=== PATIENT | female | born 1965 | race Caucasian/White ===

== ENCOUNTER 2023-12-31 10:25 | Outpatient (OUT) | payer OTHER, SELFPAY ==
--- NOTE | 2023-12-31 10:29 | VEIN_ITS ---
Patient Name: KATYA CORONEL MR#: [id number] : 1965 Exam Date: 12/31/2023 Ordering Doctor: DR SAHIL GARCIA M.D. RADIOLOGY REPORT PROCEDURE: VC EXT VENOUS REFLUX KIAH LMTD COMPARISON: None. INDICATIONS: I83.813 Bilateral painful varicose veins TECHNIQUE: Duplex imaging of the lower extremity to assess the deep and superficial venous system for the presence of deep or superficial venous incompetence and to document the location and severity of disease. The study includes evaluation of the great saphenous vein (GSV), anterior accessory saphenous vein (AASV) and small saphenous vein (SSV). Patient scanned in reverse Trendelenburg and standing. FINDINGS: RIGHT LOWER EXTREMITY: Saphenofemoral Junction Reflux: No 9.1mm sec GSV: Diam (mm) Reflux/ Time (sec) Proximal Thigh N/A Mid Thigh N/A Distal Thigh N/A Prox Calf 2.8 No Mid Calf N/A Saphenopopliteal Junction Reflux: 6.0mm Yes 1.3 SSV: Proximal Calf 5.8 Yes 1.8 Mid Calf 5.5 Yes 0.8 AASV: Proximal Thigh 4.4 No Mid Thigh Distal Thigh Thrombi: No acute or chronic thrombus visualized Compressibility: Normal Flow: Normal Preforator: Dist/med calf 4.3mm with 1.2s reflux. Tech Note: GSV was previously stripped 20 years ago. Incompetent SSV. Patent varicose vein prox/med calf 4.5mm with 1.5s reflux. Patent varicose vein dist/med thigh 4.8mm with 0.9s reflux. Patent varicose vein dist/ant thigh 3.8mm with 0.7s reflux. Patent varicose vein mid/post calf 4.1mm with 2.8s reflux. LEFT LOWER EXTREMITY: Saphenofemoral Junction Reflux: mm sec GSV: Diam (mm) Reflux/Time (sec) Proximal Thigh No Mid Thigh N/A Distal Thigh 4.0 No Prox Calf 5.3 Yes 2.1 Mid Calf N/A Saphenopopliteal Junction Relux: 4.2 mm No SSV: Proximal Calf 4.0 No Mid Calf 3.5 No AASV: Proximal Thigh 6.2 No Mid Thigh Distal Thigh Thrombi: No acute or chronic thrombus visualized Compressibility: Normal Flow: Normal Analytics Specialist: Dist/med calf 4.1mm with 0s reflux. Tech Note: GSV was previously stripped 20 years ago. Patent varicose vein prox/med calf 4.5mm with 3.1s reflux. Patent varicose vein medial 4.2mmm with 2.6s reflux. Patent varicose vein mid/med calf 6.5mm with 3.9s reflux. Patent varicose vein dist/med calf 4.6mm with 1.8s reflux. Patent varicose vein dist/med thigh 4.1mm with 1.0s reflux. CONCLUSION: 1. Moderate venous insufficiency of the right small saphenous vein with saphenous popliteal junction reflux and dilatation 2. Left leg incompetent perforating vein 3. Bilateral incompetent varicose veins measuring up to 6.5 mm, left greater than right Dictated by: Sahil Garcia MD on 12/31/2023 at 11:31 Approved by: Sahil Garcia MD on 12/31/2023 at 11:35
--- NOTE | 2023-12-31 10:29 | VEIN_ITS ---
Patient Name: KATYA CORONEL MR#: [id number] : 1965 Exam Date: 12/31/2023 Ordering Doctor: DR SAHIL GARCIA M.D. RADIOLOGY REPORT PROCEDURE: [facility] - OFFICE VISIT INITIAL COMPARISON: None. PROGRESS NOTES: 58-year-old female presents with a 20 year history of lower extremity pain swelling and varicose veins. The patient's symptoms are symmetric in both legs. The patient describes the pain as aching and heaviness and rates the pain as a 4 on a scale of 1-10. The patient's symptoms are exacerbated by prolonged sitting and standing and are partially relieved by leave by rest, leg elevation, over the counter ibuprofen and compression stockings which she has worn for several decades. The patient was previously seen by vascular surgery and underwent bilateral outpatient procedure presumably either radiofrequency or laser ablation of the great saphenous veins. The patient denies any signs and symptoms to suggest arterial ischemia. The patient describes a family history significant for varicose veins in her mother and sister. Hypertension diabetes and heart problems in her father. . Occasional alcohol use. No drug use. The patient has never smoked. Current medical conditions are significant for high blood pressure, controlled on Coreg. Multiple right foot problems with surgery in the past. Right hip arthroplasty. No history of deep venous thrombus or pulmonary embolus. See separate history and physical for medication list. Nursing notes were reviewed. After history and physical exam I discussed at length the pathophysiology of venous hypertension and possible treatments, therapies and strategies available. We discussed at length the importance of elevating the lower extremities above the level of the heart, increased physical activity and compression stocking use. We discussed conservative treatment with bilateral thigh-high compression stockings. We also discussed surgical interventions including ligation and stripping and phlebectomy. We discussed intravenous laser ablation, micro foam chemical ablation and injection sclerotherapy at length. Ultrasound venous reflux study performed the same day was discussed at length with the patient. The report demonstrates mild to moderate right small saphenous vein venous insufficiency with saphenopopliteal junction reflux and dilatation period bilateral incompetent branch saphenous varicose veins PHYSICAL EXAM: The right leg demonstrates scattered varicose reticular and spider veins. Significant subcutaneous fat out of proportion to the rest of the patient's body habitus suggesting lipedema. No subcutaneous edema The left leg demonstrates scattered varicose reticular and spider veins. Significant subcutaneous fat out of proportion to the rest of the patient's body habitus suggesting lipedema. Mild subcutaneous edema Both thighs, legs and feet were symmetrically warm to the touch. Good posterior tibial and dorsalis pedis pulses were present bilaterally. VEIN/VC Facility EST Comprehensive IMPRESSION: 1. Right small saphenous vein venous insufficiency with dilatation 2. Bilateral lower extremity branch saphenous varicose veins, left greater than right 3. Mild left lower extremity subcutaneous edema, bilateral lipedema 4. No definite flow significant arterial disease 5. CEAP: C3, Ep, As, Pr PLAN: 1. Endovenous laser ablation right small saphenous vein 2. Micro foam chemical ablation bilateral incompetent varicose veins 3. Injection sclerotherapy of reticular and spider veins 4. Long-term use of bilateral knee high or thigh-high compression stockings 5. Surgical consultation for lipedema if desired Nurse notes, history and physical were reviewed and confirmed, see attached forms. The nurse was present throughout the physical exam and consultation Dictated by: Sahil Garcia MD on 12/31/2023 at 12:22 Approved by: Sahil Garcia MD on 12/31/2023 at 12:54
== END 2023-12-31 10:26 | disposition home or self-care (01) ==
LOC: VC 10:26
PROVIDERS: PCP Radiology Diagnostic Radiology; Visit Provider Radiology Diagnostic Radiology
DX: I83.813 Varicose veins of bilateral lower extremities with pain (principal)
CPT/HCPCS: 93970; G0463

== ENCOUNTER 2024-02-04 07:53 | Outpatient (OUT) | payer OTHER, SELFPAY ==
--- OUTSIDE RECORDS SUMMARY | 2024-02-04 07:56 | XMS_ITS | CCD ---
Author Name Unknown Address [address] [facility] [address] [place] [id number] Organization [facility] Care Team Providers Care Cpo Name Role Phone Piero HENDRICKSON Primary Care Physician [phone] SHARON, DR JENKINS Attending Unavailable SHARON, DR JENKINS Consulting Unavailable DR ALICE HERRERA Admitting Unavailable Piero HENDRICKSON Attending Unavailable Piero HENDRICKSON Admitting Unavailable Piero HENDRICKSON Referring Unavailable Jonh Ann Referring Unavailable Jonh Ann Attending Unavailable Jonh Ann Admitting Unavailable Piero HENDRICKSON Admitting Unavailable Piero HENDRICKSON Attending Unavailable Piero HENDRICKSON Attending Unavailable Allergies Allergy Classification Reported Allergen(s) Allergy Type Date of Onset Reaction(s) Facility (7 sources) Erythromycin; Translations: [erythromycin] Drug Allergy unknown [facility] (7 sources) Ramipril; Translations: [ramipril] Drug Allergy angioedema [facility] (7 sources) Sulfonamides (Antibiotic); Translations: [sulfa drugs] Drug allergy unknown [facility] (1 source) Angiotensin Converting Enzyme (Ben) Inhibitors Drug allergy (disorder) 11-22-[address] [facility] (1 source) Erythromycin Drug Allergy [facility] (1 source) Sulfonamides (Antibiotic) Drug allergy (disorder) 11-22-[address] [facility] Medications Current Medications Medication Drug Class(es) Dates Sig (Normalized) Sig (Original) carvedilol 12.5 mg oral tablet (6 sources) alpha-Adrenergic Michael, beta-Adrenergic Michael Start: 08-16-2023 take 1 tablet by mouth twice daily Coreg 12.5 mg Tab 12.5 mg = 1 tab(s), Oral, BID, # 180 tab(s), Refills(s) 3, Pharmacy: [facility], 154, cm, 08/16/23 7:47:00 EDT, Height/Length Dosing, 77, kg, 08/16/23 7:46:00 EDT, Weight Dosing Start Date: 08/16/23 Status: Ordered Start: 02-27-2022 take 1 tablet by gabriela th twice daily Coreg 12.5 mg Tab 12.5 mg = 1 tab(s), Oral, BID, # 180 tab(s), Refills(s) 3, Pharmacy: [facility], 154, cm, 12/15/21 15:27:00 EST, Height/Length Dosing, 74.4, kg, 12/15/21 15:27:00 EST, Weight Dosing Start Date: 02/27/22 Status: Ordered cyclobenzaprine hydrochloride 10 mg oral tablet (1 source) Muscle Relaxant Start: 02-25-2022 take 1 tablet by mouth at bedtime cyclobenzaprine 10 mg Tab 10 mg = 1 tab(s), Oral, Bedtime, # 30 tab(s), Refills(s) 1, Pharmacy: [facility]/pharmacy #[id number], 154, cm, 12/15/21 15:27:00 EST, Height/Length Dosing, 74.4, kg, 12/15/21 15:27:00 EST, Weight Dosing Start Date: 02/25/22 Status: Ordered Ethinyl Estradiol / Norethindrone (1 source) Estrogen Start: 03-07-2021 take 1 tablet by mouth once daily Jinteli 1 tab(s), Oral, Daily, Refill(s) 0 Start Date: 03/07/21 Status: Ordered methocarbamol 500 mg oral tablet (1 source) Muscle Relaxant Start: 08-16-2023 take 2 tablets by mouth four times daily as needed for muscle spasms Robaxin 500 mg Tab 1,000 mg = 2 tab(s), Oral, QID, PRN Spasm, # 50 tab(s), Refills(s) 1, Pharmacy: [facility]/pharmacy #[id number], 154, cm, 08/16/23 7:47:00 EDT, Height/Length Dosing, 77, kg, 08/16/23 7:46:00 EDT, Weight Dosing Start Date: 08/16/23 Status: Ordered Multiple Vitamins Tab (1 source) Start: 11-08-2017 take 1 tablet by mouth once daily Multiple Vitamins Tab 1 tab(s), Oral, Daily, Refill(s) 0, Prophylaxis Start Date: 11/08/17 Status: Ordered valACYclovir 1000 mg oral tablet (1 source) Herpesvirus Nucleoside Analog DNA Polymerase Inhibitor, Herpes Simplex Virus Nucleoside Analog DNA Polymerase Inhibitor, Herpes Zoster Virus Nucleoside Analog DNA Polymerase Inhibitor Start: 08-16-2023 take 1 tablet by mouth twice daily Valtrex 1 g Tab 1 gm = 1 tab(s), Oral, BID, # 30 tab(s), Refills(s) 3, Pharmacy: [facility]/pharmacy #[id number], 154, cm, 08/16/23 7:47:00 EDT, Height/Length Dosing, 77, kg, 08/16/23 7:46:00 EDT, Weight Dosing Start Date: 08/16/23 Status: Ordered Problems Problem Classification Problem Date Documented Da te Episodic/Chronic Abdominal pain (2 sources) Abdominal pain; Translations: [Unspecified abdominal pain] Onset: 08-16-2023 Episodic Essential hypertension (8 sources) Hypertensive disorder; Translations: [Essential hypertension] Onset: 05-18-2022 03-07-2021 Chronic Osteoarthritis (9 sources) Osteoarthritis of hip; Translations: [Unilateral primary osteoarthritis, unspecified hip] Onset: 05-18-2022 12-17-2021 Chronic Other bone disease and musculoskeletal deformities (1 source) Disorder of bone; Translations: [Other specified disorders of bone density and structure, left hand] Onset: 08-16-2023 Episodic Other bone disease and musculoskeletal deformities (1 source) Osteopenia 08-16-2023 Episodic Other connective tissue disease (1 source) Hip joint prosthesis present; Translations: [Presence of right artificial hip joint] Onset: 08-16-2023 Chronic Other connective tissue disease (5 sources) Cyst of bursa 12-17-2021 Episodic Other connective tissue disease (6 sources) Extensor tenosynovitis of wrist 12-15-2021 Episodic Other non-traumatic joint disorders (5 sources) Hip pain 12-15-2021 Episodic Other non-traumatic joint disorders (1 source) Pain in right hip joint; Translations: [Pain in right hip] Onset: 05-18-2022 Episodic Other nutritional; endocrine; and metabolic disorders (2 sources) Obese class I; Translations: [Body mass index (BMI) 30.0-30.9, adult] Onset: 05-18-2022 Chronic Other nutritional; endocrine; and metabolic disorders (2 sources) Obesity; Translations: [Other obesity] Onset: 05-18-2022 Chronic Other nutritional; endocrine; and metabolic disorders (1 source) Body mass index 30+ - obesity 08-16-2023 Chronic Other nutritional; endocrine; and metabolic disorders (1 source) Obesity caused by energy imbalance 08-16-2023 Chronic Spondylosis; intervertebral disc disorders; other back problems (10 sources) Lumbar radiculitis; Translations: [Sacroiliac joint pain] 12-15-2021 Episodic Sprains and strains (2 sources) Lower back injury; Translations: [Strain of muscle, fascia and tendon of lower back, initial encounter] Onset: 08-16-2023 Episodic Unclassified (16 sources) Patient encounter status 09-05-2019 Unclassified (1 source) CONTACT W/AND (SUSP) EXPOS COVID-19; Translations: [CONTACT W/AND (SUSP) EXPOS COVID-19] Onset: 06-08-2022 Unclassified (1 source) History of repair of hip joint 08-16-2023 Unclassified (1 source) Osteoarthritis of joint of bilateral hands 08-16-2023 Viral infection (7 sources) Recurrent herpes simplex labialis; Translations: [Herpesviral vesicular dermatitis] Onset: 08-16-2023 12-15-2021 Episodic Results Test Name Value Interpretation Reference Range Facility CT Abdomen/Pelvis w/o Contra ston 08-30-2023 CT Abdomen/Pelvis w/o Contrast Exam Date/Time: 08/28/2023 08:54 EDT Reason for Exam: R10.9;Pain Report IMPRESSION: NO RENAL/URETERAL CALCULI. NO HYDRONEPHROSIS/HYDRO URETER. BIPOLAR RIGHT HIP REPLACEMENT CT OF THE ABDOMEN AND PELVIS WITHOUT INTRAVENOUS CONTRAST MEDIUM. HISTORY: PAIN, R10.9. FLANK PAIN Technical Factors: CT imaging of the abdomen and pelvis were obtained and formatted as 5 mm contiguous axial images from the domes of the diaphragm to the symphysis pubis. Sagittal and coronal reconstructions were also obtained. Oral contrast medium: None. Intravenous contrast medium: None. Comparison: None Findings: Lungs: Lung bases are clear. Liver: Normal in size, and shape. 5 mm cystic area, lateral right hepatic lobe. Bile Ducts: Normal in caliber. Gallbladder: No stones or wall thickening. Pancreas: Normal without masses, cysts, ductal dilatation or calcification. Spleen: Normal in size without masses or calcifications. No splenules. Kidneys: Normal in size. No hydronephrosis, masses, or stones. Adrenals: Normal. Small bowel: Normal in caliber. Appendix: Normal. Colon: Normal in caliber. Peritoneum: No ascites, free air, or fluid collections. Vessels: Aorta normal in course and caliber. Report Lymph nodes: Retroperitoneal: No enlarged retroperitoneal lymph nodes. Mesenteric: No enlarged mesenteric lymph nodes. Pelvic: No enlarged pelvic lymph nodes. Ureters: Normal in course and caliber. No calcifications. Bladder: No wall thickening. Partially decompressed. Partially obscured secondary to beam hardening artifact right hip replacement. Reproductive organs: No pelvic masses. Surgical clip anterior and adjacent to left uterine fundus. Abdominal Wall: No hernia identified. No diastasis of rectus musculature. No edema or masses. Bones: No bone lesions. Posterior disc space narrowing L4-L5 and L5-S1. Diffuse disc space narrowing T9-T10 through L2-L3 Bipolar right hip replacement. All CT scans at this facility use dose modulation, iterative reconstruction, and/or weight based dosing when appropriate to reduce radiation dose to as low as reasonably achievable. Ordering Provider: Piero HENDRICSKON FINAL REPORT Dictated: 08/30/2023 11:59 am Maury Rueda MD Signed (Electronic Signature): 08/30/2023 11:59 am Signed by: Maury Rueda MD Transcribed by: CONSTANZA Technologist: JESI Technical Comments Rectal Contrast Given? No Oral contrast amount in ml's: 0 Normal [facility] Consent for Treatmenton Consent for Treatment [id number] #[id number] [facility] Insurance Correspondenceon 0 08-18-2023 Insurance Correspondence [id number] 3#[id number]:127 Normal [facility] Ambulatory Visit Summaryon 0 08-16-2023 Ambulatory Visit Summary BERNAJESSICAGERRY Carlson :1965 Visit Date:08/16/2023 Ambulatory Visit Instructions Your Diagnosis Well adult exam BMI 32.0-32.9,adult Obesity due to excess calories HTN - Hypertension History of right hip replacement Left flank pain Recurrent cold sores Osteoarthritis of both hands Other specified disorders of bone density and structure, left hand Primary osteoarthritis, left hand Your Care Team Attending Physician - Piero HENDRICKSON DO, FAAFP Primary Care Physician - Piero HENDRICKSON DO, FAAFP This Is Your Medications List carvedilol (Coreg 12.5 mg Tab) valacyclovir (Valtrex 1 g Tab) Procedures Performed Hip replacement (06/09/2022), Bilateral tubal ligation, Caesarean section, Colonoscopy, laparoscopic, venous blockage. Discharge Vitals Temperature (Temporal Artery) 36.9 ?C Heart Rate (Peripheral) 76 Respiratory Rate 16 Blood Pressure 120/82 Height 154 cm Height 61 in Weight 77 kg Weight 169.4 lb BMI 32.47 What to do next You Need to Schedule the Following Appointments Follow Up with Piero HENDRICKSON DO, FAAFP, FAM, PED When: In 1 year Where: [address], [place] [address]- You Need to Complete the Following CT Abdomen/Pelvis w/o Contrast, 08/16/23, Routine, Order for future visit, Transport Mode: Ambulatory, Reason: Pain, No, No, Left flank pain, pp_set_radiology_sub specialty, [facility] Medications What How Much When Why Instructions New valacyclovir (Valtrex 1 g Tab) 1 Tablets By Mouth 2 times a day Recurrent cold sores Refills: 3 Pickup at [id number] Unchanged carvedilol (Coreg 12.5 mg Tab) 1 Tablets By Mouth 2 times a day Pickup at [facility] Pharmacy Information [facility]: [address] [facility] [address] [place], [place] [id number] [phone] [id number]: [address] [place], [place] [phone] Medications and Immunizations Administered Not Given influenza virus vaccine, inactivated, Patient Refuses SARS-CoV-2 mRNA (tozinameran 5y-11y) vac, Postpone due to refusal Allergies erythromycin (unknown) ramipril (angioedema) sulfa drugs (unknown) Problems Ongoing - Any problem that you are currently receiving treatment for. BMI 32.0-32.9,adult History of right hip replacement HTN - Hypertension Left flank pain Obesity due to excess calories Osteoarthritis of both hands Osteopenia of both hands Preventative health care Primary osteoarthritis of hip Recurrent cold sores Right lumbar radiculitis Sacroiliac pain Well adult exam Historical - Any problem that you are no longer receiving treatment for. Extensor tenosynovitis of right wrist Education Materials Flank Pain, Adult Flank pain is pain in your side. The flank is the area on your side between your upper belly (abdomen) and your spine. The pain may occur over a short time (acute), or it may be long-term or come back often (chronic). It may be mild or very bad. Pain in this area can be caused by many different things. Follow these instructions at home: ? Drink enough fluid to keep your pee (urine) pale yellow. ? Rest as told by your doctor. ? Take uxgf-trx-vgalofa and prescription medicines only as told by your doctor. ? Keep a journal to keep track of: ? What has caused your flank pain. ? What has made your flank pain feel better. ? Keep all follow-up visits. Contact a doctor if: ? Medicine does not help your pain. ? You have new symptoms. ? Your pain gets worse. ? Your symptoms last longer than 2?3 days. ? You have trouble peeing. ? You are peeing more often than normal. Get help right away if: ? You have trouble breathing. ? You are short of breath. ? Your belly hurts, or it is swollen or red. ? You feel like you may vomit (nauseous). ? You vomit. ? You feel faint, or you faint. ? You have blood in your pee. ? You have flank pain and a fever. These symptoms may be an emergency. Get help right away. Call your local emergency services (911 in the [place] ? Do not wait to see if the symptoms will go away. ? Do not drive yourself to the hospital. Summary ? Flank pain is pain in your side. The flank is the area of your side between your upper belly (abdomen) and your spine. ? Flank pain may occur over a short time (acute), or it may be long-term or come back often (chronic). It may be mild or very bad. ? Pain in this area can be caused by many different things. ? Contact your doctor if your symptoms get worse or last longer than 2?3 days. This information is not intended to replace advice given to you by your health care provider. Make sure you discuss any questions you have with your health care provider. Document Revised: 01/19/2022 Document Reviewed: 01/19/2022 [employer] Patient Education ? 2022 [employer]. Normal [facility] Family Medicine Office/Clini c Noteon 08-16-2023 Family Medicine Office/Clinic Note Chief Complaint Pt here for wellness for insurance, plans to get flu vaccine next week at work. History of Present Illness Here for follow up Have you had any ER visits or any hospitalizations since last visit? no Are you compliant with your medications and no difficulty affording your medications? yes Do you have side effects from the medication? no Are you compliant with your diet? yes Do you exercise? yes Do you have any of the following symptoms? Chest pain? no Palpitations? no CHISHOLM/SOB? no Orthopnea? no PND? no Edema? no Have you had any recent cardiopulmonary testing? no L flank pain: Was carrying 40lb salt bags Wednesday. Denies fever and or chills, believes it is musculoskeletal, however defers UA and would like a CT of abdomen to rule out kidney stone. Reports no hematuria or dysuria Could you give me a refill on cold sore medicine, no prodrome but the Valtrex 1 p.o. 3 times daily really helped a come and go under. Some stress she could not quantify how many. Cassette #[id number] would be enough Review of Systems PHQ Score Initial Depression Screen Score: 0 ROS - Provider Constitutional: no fever, no chills, no sweats, no weakness. Skin: no Jaundice, no rash, no lesions, no petechiae. ENMT: no ear pain, no sore throat, no congestion, no hoarseness. Respiratory: no shortness of breath, no cough, no orthopnea, no wheezing. Cardiovascular: no chest pain, no palpitations, no edema. Gastrointestinal: no nausea, no vomiting, no diarrhea, no GI bleeding.noconstipat ionnoheartburn Genitourinary: no dysuria, no hematuria, no discharge, no pain.nofreq/urgency Musculoskeletal: no back pain, no trauma.nojoint pain Neurologic: no headache, no dizziness, no numbness, no weakness. Psychiatric: no sleeping problems, no irritability, no mood swings/depression. Heme/Lymph: no bleeding tendency, no bruising tendency, no petechiae, no swollen lymph nodes no Allergy/Imunology no seasonal allergies, no food allergies, no recurrent infections, no impaired immunity. Additional ROS info: Except as noted in the above Review of Systems and in the History of Present Illness all other systems have been reviewed and are negative or noncontributory. Physical Exam Vitals & Measurements T: 36.9 ?C(Temporal Artery) HR: 76(Peripheral) RR: 16 BP: 120/82 SpO2: 99% HT: 61 in HT: 154 cm WT: 77 kg WT: 169.4 lb BMI: 32.47 General: Well developed, well nourished, in no acute distress Mouth: Mucous membranes moist. Normal oropharynx, and posterior pharynx without lesions or exudates. Tongue normal Neck: Neck supple. No masses or palpable cervical nodes. Trachea midline. Thyroid without nodules, masses, tenderness, or enlargement Lungs: Normal respiratory effort and clear to auscultation Cardio: Regular rate and rhythm, normal S1 and S2, no murmur, no rub Abdomen: Soft, non-distended, non-tender. no G/R/S/Masses Musculoskeletal: No deformity or scoliosis noted. Normal range of motion: Left paraspinal muscle tenderness there is where she says her pain emanates in the left flank around the L2-L3 paraspinal musculature left Extremity: No clubbing, cyanosis, edema, or deformity, with normal ROM in both upper and lower bilateral extremities Neurologic: Grossly normal Skin: No rashes, ulcerations, or suspicious lesions Mental Status: Alert and oriented x3. Normal mood and affect Assessment/Plan 1. Well adult exam (Z00.00: Encounter for general adult medical examination without abnormal findings) Panel blood work reviewed essentially unremarkable except for white cell count of 3.9 2. BMI 32.0-32.9,adult (Z68.32: Body mass index [BMI] 32.0-32.9, adult) The standard range for ages 18 and older is >=18.5 and < 25 kg/m2. Your BMI today was above this range, this falls in the overweight to obese category and there are medical benefits to weight loss. We can offer counselling, referral, and/or medical support in addressing this problem. Your BMI and weight management will be followed at subsequent visits. 3. Obesity due to excess calories (E66.09: Other obesity due to excess calories) Diet and exercise 4. HTN - Hypertension (I10: Essential (primary) hypertension) Excellent control with Coreg 12.5 mg p.o. twice daily 5. History of right hip replacement (Z96.641: Presence of right artificial hip joint) marked improvement. 6. Left flank pain (R10.9: Unspecified abdominal pain) Patient defers UA, believes it is muscular in nature, would like to have a CT done to rule out kidney stones she does have reproducible tenderness over the left paraspinal lumbar muscles there is like the pain she is speakingOf Ordered: methocarbamol, 1,000 mg = 2 tab(s), Oral, QID, PRN Spasm, # 50 tab(s), Refills(s) 1, Pharmacy: [facility]/pharmacy #[id number], 154, cm, 08/16/23 7:47:00 EDT, Height/Length Dosing, 77, kg, 08/16/23 7:46:00 EDT, Weight Dosing CT Abdomen/Pelvis w/o Contrast 7. 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 Normal [facility] Comment on above: Result Comment: Elec tronically Signed By: EMEKA JAY FAAFP, Piero Solis\\.br\\Date and Time Signed: 08/16/23 08:24 EDT Patient Educationon 08-16-20 23 Patient Education Infectious Disease Cold Sore A cold sore, also called a fever blister, is a small, fluid-filled sore that forms inside of the mouth or on the lips, gums, nose, chin, or cheeks. Cold sores can spread to other parts of the body, such as the eyes, fingers, or genitals. Cold sores can spread from person to person (are contagious) until the sores crust over completely. Most cold sores go away within 2 weeks. What are the causes? Cold sores are caused by a virus (herpes simplex virus type 1, HSV-1). The virus can spread from person to person through close contact, such as through: ? Kissing. ? Touching the affected area. ? Sharing personal items such as lip balm, razors, a drinking glass, or eating utensils. What increases the risk? ? Being tired, stressed, or sick. ? Having your period (menstruating). ? Being . ? Taking certain medicines. ? Being out in cold weather or getting too much sun. What are the signs or symptoms? Symptoms of a cold sore go through different stages: ? Tingling, itching, or burning is felt 1?2 days before the cold sore appears. ? Fluid-filled blisters appear on the lips, inside the mouth, on the nose, or on the cheeks. ? The blisters start to ooze clear fluid. ? The blisters dry up, and a yellow crust appears in their place. ? The crust falls off. In some cases, other symptoms can develop along with cold sores. These can include: ? Fever. ? Sore throat. ? Headache. ? Muscle aches. ? Swollen neck glands. How is this treated? There is no cure for cold sores or the virus that causes them. There is also no vaccine to prevent the virus. Most cold sores go away on their own without treatment within 2 weeks. Your doctor may prescribe medicines to: ? Help with pain. ? Keep the virus from growing. ? Help you heal faster. Medicines may be in the form of creams, gels, pills, or a shot. Follow these instructions at home: Medicines ? Take or apply wwcq-ilr-fxonvkl and prescription medicines only as told by your doctor. ? Use a cotton-tip swab to apply creams or gels to your sores. ? Ask your doctor if you can take lysine supplements. These may help with healing. Sore care ? Do not touch the sores or pick the scabs. ? Wash your hands often with soap and water for at least 20 seconds. Do not touch your eyes without washing your hands first. ? Keep the sores clean and dry. ? If told, put ice on the sores. To do this: ? Put ice in a plastic bag. ? Place a towel between your skin and the bag. ? Leave the ice on for 20 minutes, 2?3 times a day. ? Take off the ice if your skin turns bright red. This is very important. If you cannot feel pain, heat, or cold, you have a greater risk of damage to the area. Eating and drinking ? Eat a soft, bland diet. Avoid eating hot, cold, or salty foods. These can hurt your mouth. ? Use a straw if it hurts to drink out of a glass. ? Eat foods that have a lot of lysine in them. These include meat, fish, and dairy products. ? Avoid sugary foods, chocolates, nuts, and grains. These foods have a high amount of a substance (arginine) that can cause the virus to grow. Lifestyle ? Do not kiss, have oral sex, or share personal items until your sores heal. ? Stress, poor sleep, and being out in the sun can trigger a cold sore. Make sure you: ? Do activities that help you relax, such as deep breathing exercises or meditation. ? Get enough sleep. ? Put sunscreen on your lips before you go out in the sun. Contact a doctor if: ? You have symptoms for more than 2 weeks. ? You have pus coming from the sores. ? You have redness that is spreading. ? You have pain or irritation in your eye. ? You get sores on your genitals. ? Your sores do not heal within 2 weeks. ? You get cold sores often. Get help right away if: ? You have a fever and your symptoms suddenly get worse. ? You have a headache and confusion. ? You have tiredness (fatigue). ? You do not want to eat as much as normal (loss of appetite). ? You have a stiff neck or are sensitive to light. Summary ? A cold sore is a small, fluid-filled sore that forms inside of the mouth or on the lips, gums, nose, chin, or cheeks. ? Cold sores can spread from person to person (are contagious) until the sores crust over completely. Most cold sores go away within 2 weeks. ? Wash your hands often. Do not touch your eyes without washing your hands first. ? Do not kiss, have oral sex, or share personal items until your sores heal. ? Contact a doctor if your sores do not heal within 2 weeks. This information is not intended to replace advice given to you by your health care provider. Make sure you discuss any questions you have with your health care provider. Document Revised: 08/19/2022 Document Reviewed: 08/19/2022 Elsevier Patient Education ? 2022 [employer] Orthopedics Muscle Strain A muscle strain, o (more content not included)... Normal [facility] MA Mamm Screen w/CAD if perf and 3D Bilon 06-14-2023 MA Mamm Screen w/CAD if perf and 3D Thien Exam Date/Time: 06/11/2023 09:22 EDT Reason for Exam: Z12.31 Report IMPRESSION: BIRADS 2 BENIGN FINDINGS, NORMAL INTERVAL FOLLOW-UP.12 MONTH RECALL. CLINICAL HISTORY: Z12.31. COMPARISON: 06/08/2022. COMMENT: Routine views and tomosynthesis views of both breasts were obtained. The breasts are heterogeneously dense, which may obscure small masses. Asymmetry in the density of the left breast is stable in appearance. No dominant breast mass nor neoplastic calcifications are noted. There has been no significant change when compared to the prior exam. The examination was reviewed with Computer Aided Detection. Breast Density: Yes Mammography is very important to your health. The current [employer] and National [employer] guidelines recommends annual mammography beginning at age 40. This facility utilizes a reminder system to ensure all patients receive reminder notifications at the appropriate time based on the recommendations of this exam. Board Certified Radiologists. Accredited by the ACR and FDA. Ordering Provider: Jonh Ann FINAL REPORT Dictated: 06/14/2023 3:40 pm Angelito Vidal M.D. Signed (Electronic Signature): 06/14/2023 3:40 pm Signed by: Angelito Vidal M.D. Transcribed by: CONSTANZA Technologist: [facility] Assessment: BI-RADS Category 2-Benign finding Recommendation: Normal interval follow-up Normal [facility] Consent for Treatmenton 05-23 Consent for Treatment [id number] 30 [id number] #1.00CD:127 Normal [facility] Physician Orderon 06-07-2023 Physician Order [id number] #1.00CD:127 Normal [facility] Auto Diffon 04-30-2023 Basophils/100 WBC (Bld) 0.9 % Normal 0.0-2.0 [facility] Comment on above: Order Comment: Order Added by Discern Expert. Performed By: #### 2 133282, 7704113, 1122820, 1619144, 6809222, 62467468 #### [facility] [address] [place] [address] Basophils/Leukocytes Auto (Bld) [Pure # fraction] 0.0 E9/L Normal 0.0-0.2 [facility] Comment on above: Order Comment: Order Added by Discern Expert. Performed By: #### 2 880654, 1796336, 5577770, 2457719, 2057135, [id number] #### [facility] [address] [place] [address] Eosinophils/100 WBC (Bld) 2.7 % Normal 0.0-8.0 [facility] Comment on above: Order Comment: Order Added by Discern Expert. Performed By: #### 2 765918, 9993550, 9889855, 9646318, 2975039, 44689728 #### [facility] [address] [place] [address] Eosinophils/Leukocyte s Auto (Bld) [Pure # fraction] 0.1 E9/L Normal 0.0-0.5 [facility] Comment on above: Order Comment: Order Added by Discern Expert. Performed By: #### 2 672126, 1866577, 2665240, 8467508, 8896106, 47239307 #### [facility] [address] [place] [address] Lymphocytes/100 WBC (Bld) 31.3 % Normal 14.0-50.0 [facility] Comment on above: Order Comment: Order Added by Discern Expert. Performed By: #### 2 535697, 1450622, 3874134, 6696485, 8366022, 37966183 #### [facility] [address] [place] [address] Lymphocytes/Leukocyte s Auto (Bld) [Pure # fraction] 1.2 E9/L Normal 1.0-4.0 [facility] Comment on above: Order Comment: Order Added by Discern Expert. Performed By: #### 2 786444, 6286447, 6760083, 1784899, 1697673, 88799224 #### [facility] [address] [place] [address] Monocytes/100 WBC (Bld) 11.7 % Normal 4.0-14.0 [facility] Comment on above: Order Comment: Order Added by Discern Expert. Performed By: #### 2 383513, 6167093, 2333242, 4315979, 4406651, 14819318 #### [facility] [address] [place] [address] Monocytes/Leukocytes Auto (Bld) [Pure # fraction] 0.5 E9/L Normal 0.2-1.0 [facility] Comment on above: Order Comment: Order Added by Giancarlo Expert. Performed By: #### 2 655610, 1095825, 3920171, 9814357, 3890800, 90225373 #### [facility] [address] [place] [address] Neutrophils/100 WBC (Bld) 53.4 % Normal 36.0-75.0 [facility] Comment on above: Order Comment: Order Added by Discern Expert. Performed By: #### 2 710470, 2135107, 7746283, 1319247, 0654303, 27664651 #### [facility] [address] [place] [address] Neutrophils/Leukocyte s Auto (Bld) [Pure # fraction] 2.1 E9/L Normal 2.0-7.5 [facility] Comment on above: Order Comment: Order Added by Giancarlo Expert. Performed By: #### 2 207036, 3353061, 5904039, 3251578, 3097525, 00928468 #### [facility] [address] [place] [address] BMPon 04-30-2023 Anion gap [Moles/Vol] 10 mmol/L Normal 6-16 [facility] Comment on above: Performed By: #### 2 424357, 0156647, 9886333, 5703857, 0806936, 40153344 #### [facility] [address] [place] [address] Calcium [Mass/Vol] 8.9 mg/dL Normal 8.9-11.1 [facility] Comment on above: Performed By: #### 2 306327, 4440772, 9387257, 3954060, 7465404, 30315962 #### [facility] [address] [place] [address] Chloride [Moles/Vol] 107 mmol/L Normal 101-111 [facility] Comment on above: Performed By: #### 2 939339, 6602054, 5850818, 7612500, 8549179, 03617774 #### [facility] [address] [place] [address] CO2 [Moles/Vol] 26 mmol/L Normal 21-31 [facility] Comment on above: Performed By: #### 2 024425, 2274007, 6672273, 8928232, 8458404, 61277448 #### [facility] [address] [place] [address] Creatinine [Mass/Vol] 0.7 mg/dL Normal 0.5-1.3 [facility] Comment on above: Performed By: #### 2 800349, 0961814, 2258399, 6079323, 8736180, 15548865 #### [facility] [address] [place] [address] Glucose [Mass/Vol] 92 mg/dL Normal 55-199 [facility] Comment on above: Result Comment: If t his glucose result represents a fasting glucose, interpretation should refer to the following reference range: 55-99 mg/dL Performed By: #### 2 899344, 6346368, 4071444, 7481238, 9582937, 96714984 #### [facility] [address] [place] [address] Potassium [Moles/Vol] 3.9 mmol/L Normal 3.5-5.3 [facility] Comment on above: Performed By: #### 2 779229, 3621182, 5999835, 6081981, 6655048, 21600359 #### [facility] [address] [place] [address] Sodium [Moles/Vol] 139 mmol/L Normal 135-145 [facility] Comment on above: Performed By: #### 2 254111, 8312426, 8479524, 9087845, 4386963, 07975851 #### [facility] [address] [place] [address] Urea nitrogen [Mass/Vol] 19 mg/dL Normal 5-21 [facility] Comment on above: Performed By: #### 2 159956, 4500126, 7797177, 0408518, 0437864, 11742174 #### [facility] [address] [place] [address] Urea nitrogen/Creatinine [Mass ratio] 27 No Units High 10-20 [facility] Comment on above: Performed By: #### 2 341009, 4354915, 6684369, 4593731, 5412902, 20347329 #### [facility] [address] [place] [address] CBC w/ Auto Diffon 3 Erythrocyte distribution width (RBC) [Ratio] 12.3 % Normal 10.9-14.2 [facility] Comment on above: Performed By: #### 2 887142, 8225111, 3099818, 9159456, 0968781, 08569674 #### [facility] [address] [place] [address] Hematocrit (Bld) [Volume fraction] 35.9 % Normal 34.0-46.0 [facility] Comment on above: Performed By: #### 2 632374, 5814102, 3940807, 2395769, 7862394, 88157131 #### [facility] [address] [place] [address] Hemoglobin (Bld) [Mass/Vol] 12.1 g/dL Normal 12.0-16.0 [facility] Comment on above: Performed By: #### 2 496376, 0569749, 7853880, 8227412, 3922874, 87191093 #### [facility] [address] [place] [address] MCH (RBC) [Entitic mass] 32.5 pg Normal 27.0-34.0 [facility] Comment on above: Performed By: #### 2 337782, 1546732, 4377084, 8824039, 8658146, 43320659 #### [facility] [address] [place] [address] MCHC (RBC) [Mass/Vol] 33.8 g/dL Normal 31.4-36.0 [facility] Comment on above: Performed By: #### 2 104147, 3765357, 2990043, 7708924, 5727952, 18505335 #### [facility] [address] [place] [address] MCV (RBC) [Entitic vol] 96.1 fL Normal 80.0-100.0 [facility] Comment on above: Performed By: #### 2 349665, 7541564, 6041426, 6450907, 1380597, 82139448 #### [facility] [address] [place] [address] Platelet mean volume (Bld) [Entitic vol] 8.9 fL Normal 6.4-10.8 [facility] Comment on above: Performed By: #### 2 837974, 6480221, 9080525, 6615784, 9381646, 60620513 #### [facility] [address] [place] [address] Platelets (Bld) [#/Vol] 186.0 E9/L Normal 150.0-500.0 [facility] Comment on above: Performed By: #### 2 605873, 5832324, 5357863, 1203317, 0313357, 43370454 #### [facility] [address] [place] [address] RBC (Bld) [#/Vol] 3.7 E12/L Low 4.3-5.9 [facility] Comment on above: Performed By: #### 2 143643, 4070215, 8112828, 1432256, 9585781, 87243013 #### [facility] [address] [place] [address] WBC corrected for nucl RBC Auto (Bld) [#/Vol] 3.9 E9/L Low 4.0-11.0 [facility] Comment on above: Performed By: #### 2 704599, 5625761, 7165968, 0369734, 8387755, 10027231 #### [facility] [address] [place] [address] Consent for Treatmenton Consent for Treatment [id number] 30 [id number] #1.00CD:127 Normal [facility] Hep Func Panelon 04-30-2023 Albumin [Mass/Vol] 3.7 g/dL Normal 3.3-5.0 [facility] Comment on above: Performed By: #### 2 270012, 9242950, 6220192, 3587189, 7570596, 82348018 #### [facility] [address] [place] [address] Albumin/Globulin (S) [Mass conc ratio] 1.1 Normal 1.1-2.2 [facility] Comment on above: Performed By: #### 2 920371, 3739822, 4916863, 9064914, 2457966, 31870509 #### [facility] [address] [place] [address] ALP [Catalytic activity/Vol] 78 Int._Unit/L Normal 21-98 [facility] Comment on above: Performed By: #### 2 319048, 7423132, 9869114, 1496995, 4977601, 33345030 #### [facility] [address] [place], [place] [address] ALT No additional P-5'-P [Catalytic activity/Vol] 20 Int._Unit/L Normal 6-46 [facility] Comment on above: Performed By: #### 2 696911, 1316815, 5259533, 8654038, 6844929, 67589076 #### [facility] [address] [place] [address] AST [Catalytic activity/Vol] 23 Int._Unit/L Normal 5-43 [facility] Comment on above: Performed By: #### 2 938712, 5013930, 8739460, 7213059, 9626351, 47137013 #### [facility] [address] [place] [address] Bilirubin [Mass/Vol] 1.0 mg/dL Normal 0.0-1.1 [facility] Comment on above: Performed By: #### 2 857065, 3798397, 0379121, 7955185, 1091879, 55961081 #### [facility] [address] [place], [place] [address] Bilirubin.direct [Mass/Vol] 0.1 mg/dL Normal 0.1-0.4 [facility] Comment on above: Performed By: #### 2 265898, 9822589, 4340123, 9963652, 1637489, 45791195 #### [facility] [address] [place], [place] [address] Bilirubin.indirect [Mass or moles/Vol] 0.9 mg/dL Normal 0.1-0.9 [facility] Comment on above: Performed By: #### 2 640585, 4892984, 8685754, 1532236, 6883868, 46464662 #### [facility] [address] [place], [place] [address] Globulin (S) [Mass/Vol] 3.5 g/dL Normal 1.4-4.0 [facility] Comment on above: Performed By: #### 2 015056, 4343689, 8283124, 3258919, 8632641, 98305363 #### [facility] [address] [place] [address] Protein [Mass/Vol] 7.2 g/dL Normal 6.0-7.8 [facility] Comment on above: Performed By: #### 2 253363, 7486060, 5778005, 2995823, 8454184, 08362363 #### [facility] [address] [place] [address] Lipid Panelon 04-30-2023 Cholesterol [Mass/Vol] 162 mg/dL Normal 120-200 [facility] Comment on above: Performed By: #### 2 141905, 5109148, 5856134, 1807916, 6499414, 35397192 #### [facility] [address] [place] [address] Cholesterol in HDL [Mass/Vol] 62 mg/dL Invalid Interpretation Code [facility] Comment on above: Result Comment: HDL > or equal to 60 mg/dL: Low cardiovascular risk HDL < 40 mg/dL : High cardiovascular risk Performed By: #### 2 091758, 4951015, 2041157, 7058503, 8838316, 64047025 #### [facility] [address] [place] [address] Cholesterol in LDL [Mass/Vol] 96 mg/dL Normal <=129 [facility] Comment on above: Performed By: #### 2 263208, 9268504, 7382716, 3161209, 9597474, 59992404 #### [facility] [address] [place] [address] Cholesterol in VLDL [Mass/Vol] 8 mg/dL Normal 7-40 [facility] Comment on above: Performed By: #### 2 788052, 7351135, 6251726, 5704282, 7713335, 35472766 #### [facility] [address] [place] [address] Triglyceride [Mass/Vol] 40 mg/dL Normal <=149 [facility] Comment on above: Performed By: #### 2 286705, 2841490, 1912036, 0845524, 9144052, 68752833 #### [facility] [address] [place] [address] eGFRon 04-30-2023 GFR/1.73 sq M.predicted among non-blacks MDRD (S/P/Bld) [Vol rate/Area] 101 mL/min/1.73 m2 Normal >=59 [facility] Comment on above: Order Comment: Order added by Discern Expert. Result Comment: [facility] Specialist felipa kidney disease could be indicated at eGFR's of less than 60 mL/min/1.73m2. Kidney failure is indicated at less than 15 mL/min/1.73m2. Performed By: #### 2 932923, 7528311, 1021634, 6642980, 6617560, 72721565 #### [facility] [address] [place] [address] Covid-19 PCR (CVDTB)on 05-22 SARS-CoV-2 (COVID-19) RNA AURA+probe Ql (Unsp spec) Not detected Normal NOT DETECTED [facility] Comment on above: Result Comment: This test is not yet approved or cleared by the [place] FDA. When there are no FDA-approved or cleared tests available, and other criteria are met, FDA can make tests available under an emergency access mechanism called an Emergency Use Authorization (EUA). The EUA for this test is supported by the Reinstatement Clerk of Health and Human Service's (HHS's) declaration that circumstances exist to justify the emergency use of in vitro diagnostics for the detection and/or diagnosis of the virus that causes COVID-19. This EUA will remain in effect (meaning this test can be used) for the duration of the COVID-19 declaration justifying emergency of IVDs, unless it is terminated or revoked by FDA (after which the test may no longer be used). When diagnostic testing is negative, the possibility of a false negative should be considered in the context of a patient's recent exposures and the presence of clinical signs and symptoms consistent with SARS-CoV-2. Performed By: #### C VDTBH #### [facility] [address] [address] [address] Tomas Chauhan CHEMISTRYOrdered By: SYSTEM SYSTEM on 04-10-2022 Cobalamin (Vitamin B12) [Mass/Vol] 282 pg/mL Normal 50 - 1500 pg/mL [facility] Remisol Folate [Mass/Vol] ng/mL Normal >=6.7ng/mL [facility] Re misol HEMATOLOGYOrdered By: SYSTEM SYSTEM on 04-10-2022 Basophils/100 WBC (Bld) 0.8 % Normal 0.0 - 2.0 % [facility] HemeAutoSS Basophils/Leukocytes Auto (Bld) [Pure # fraction] 0.0 E9/L Normal 0.0 - 0.2 E9/L [facility] HemeAutoSS Eosinophils/100 WBC (Bld) 2.2 % Normal 0.0 - 8.0 % [facility] HemeAutoSS Eosinophils/Leukocyte s Auto (Bld) [Pure # fraction] 0.1 E9/L Normal 0.0 - 0.5 E9/L [facility] HemeAutoSS Lymphocytes/100 WBC (Bld) 26.6 % Normal 14.0 - 50.0 % [facility] HemeAutoSS Lymphocytes/Leukocyte s Auto (Bld) [Pure # fraction] 1.2 E9/L Normal 1.0 - 4.0 E9/L [facility] HemeAutoSS Monocytes/100 WBC (Bld) 10.3 % Normal 4.0 - 14.0 % [facility] HemeAutoSS Monocytes/Leukocytes Auto (Bld) [Pure # fraction] 0.5 E9/L Normal 0.2 - 1.0 E9/L [facility] HemeAutoSS Neutrophils/100 WBC (Bld) 60.1 % Normal 36.0 - 75.0 % [facility] HemeAutoSS Neutrophils/Leukocyte s Auto (Bld) [Pure # fraction] 2.7 E9/L Normal 2.0 - 7.5 E9/L [facility] HemeAutoSS HEMATOLOGYOrdered By: Edilma Ivey on 04-10-2022 Erythrocyte distribution width (RBC) [Ratio] 12.4 % Normal 10.9 - 14.2 % [facility] HemeAutoSS Hematocrit (Bld) [Volume fraction] 35.4 % Normal 34.0 - 46.0 % [facility] HemeAutoSS Hemoglobin (Bld) [Mass/Vol] 12.2 g/dL Normal 12.0 - 16.0 gm/dL [facility]eAuto[facility] MCH (RBC) [Entitic mass] 34.2 pg High 27.0 - 34.0 pg [facility]eAuto[facility] MCHC (RBC) [Mass/Vol] 34.5 g/dL Normal 31.4 - 36.0 gm/dL [facility]eAutoSS MCV (RBC) [Entitic vol] 99.2 fL Normal 80.0 - 100.0 fL [facility] HemeAutoSS Platelet mean volume (Bld) [Entitic vol] 8.8 fL Normal 6.4 - 10.8 fL [facility] HemeAutoSS Platelets (Bld) [#/Vol] 215.0 E9/L Normal 150.0 - 500.0 E9/L [facility] HemeAutoSS RBC (Bld) [#/Vol] 3.6 E12/L Low 4.3 - 5.9 E12/L [facility] HemeAutoSS WBC corrected for nucl RBC Auto (Bld) [#/Vol] 4.5 E9/L Normal 4.0 - 11.0 E9/L [facility] HemeAutoSS Vital Signs Date Time Vital Sign Value Performing Clinician Faci lity 08-16-2023 07:39-0400 Blood Pressure Location Piero STEIN[employer] [facility] 08-16-2023 07:39-0400 Body temperature 98.42 [degF] Piero MARYANLE [facility] 08-16-2023 07:39-0400 Diastolic blood pressure 82 mm[Hg] Piero MARYANLE [facility] 08-16-2023 07:39-0400 Heart rate 76 /min Piero STEINBERGLE [facility] 08-16-2023 07:39-0400 Respiratory rate 16 /min Piero [employer] [facility] 08-16-2023 07:39-0400 SaO2% (BldA) [Mass fraction] 99 % Piero [employer] [facility] 08-16-2023 07:39-0400 Systolic blood pressure 120 mm[Hg] Piero [employer] [facility] 05-18-2022 10:04-0400 Blood Pressure Location Piero KAPLE [facility] 05-18-2022 10:04-0400 Body temperature 97.88 [degF] Piero KAPLE [facility] 05-18-2022 10:04-0400 Diastolic blood pressure 78 mm[Hg] Piero KAPLE [facility] 05-18-2022 10:04-0400 Heart rate 84 /min Piero KAPLE [facility] 05-18-2022 10:04-0400 Respiratory rate 16 /min Piero KAPLE [facility] 05-18-2022 10:04-0400 SaO2% (BldA) [Mass fraction] 98 % Piero KAPLE [facility] 05-18-2022 10:04-0400 Systolic blood pressure 122 mm[Hg] Piero KAPLE [facility] Encounters Encounter Date Encounter Type Care Provider Facility Start: 08-28-2023 End: 08-29-2023 ambulatory Piero [place]DRICKSON [place] [place]: 08-16-2023 End: 08-17-2023 ambulatory Piero HENDRICKSON Facility:[facility] Start: 08-16-2023 End: 08-16-2023 Patient encounter procedure Piero HENDRICKSON [facility] Start: 08-16-2023 End: 08-16-2023 Well adult monitoring check done Piero HENDRICKSON [facility] Start: 06-11-2023 End: 06-12-2023 ambulatory Jonh Ann [place] Start: 04-30-2023 End: 05-01-2023 ambulatory Piero HENDRICKSON [place] Start: 06-08-2022 End: 06-08-2022 Patient encounter procedure Jonh Ann [facility] Start: 06-08-2022 Encounter for preprocedural laboratory examination DR ALICE HERRERA [facility] Start: 06-05-2022 End: 06-06-[address] ALICE HERRERA Facility: Start: 06-05-2022 End: 06-06-2022 Encounter for preprocedural laboratory examination DR ALICE HERRERA Facility: Start: 05-19-2022 End: 05-19-2022 Lab Drop off Jonh Ann [facility] Start: 05-18-2022 End: 05-18-2022 Patient encounter procedure Piero HENDRICKSON [facility] Start: 05-18-2022 End: 05-18-2022 Preprocedural examination done Piero HENDRICKSON [facility] Start: 04-10-2022 End: 04-10-2022 Patient encounter procedure Piero HENDRICKSON [facility] Procedures Date Procedure Procedure Detail Performing Clinician Start: 06-09-2022 Insertion of hip prosthesis Piero HENDRICKSON Comment on above: Dr. Sandeep Samuel Bilateral tubal ligation Sco aracelis HENDRICKSON section Piero KAPLE Colonoscopy Piero KAPLE laparoscopic Piero KAPLE venous blockage Pieor KAPLE Immunizations Immunization Date Immunization Notes Care Provider Fa cili 09-03-2022 influenza virus vaccine, unspecified formulation Piero KAPLE [facility] 08-26-2021 influenza virus vaccine, unspecified formulation Piero KAPLE [facility] Comment on above: Result Comment: [facility] 08-22-2020 influenza virus vaccine, unspecified formulation Piero STEINBERGLE [facility] 08-29-2019 influenza virus vaccine, unspecified formulation Piero STEINBERGLE [facility] 08-28-2019 influenza virus vaccine, unspecified formulation Piero STEINBERGLE [facility] 10-18-2017 influenza virus vaccine, unspecified formulation Piero STEINBERGLE [facility] 09-15-2016 influenza virus vaccine, unspecified formulation Piero KAPLE [facility] 09-17-2015 influenza virus vaccine, unspecified formulation Piero KAPLE [facility] 09-11-2014 influenza virus vaccine, unspecified formulation Piero KAPLE [facility] 09-16-2013 influenza virus vaccine, unspecified formulation Piero KAPLE [facility] 11-04-2010 tetanus toxoid, reduced diphtheria toxoid, and acellular pertussis vaccine, adsorbed Piero HENDRICKSON [facility] 03-06-2010 hepatitis A vaccine, adult dosage Piero STEINBERGLE [facility] 03-06-2010 hepatitis B vaccine, pediatric or pediatric/adolescent dosage Piero HENDRICKSON [facility] 11-07-2009 hepatitis B vaccine, pediatric or pediatric/adolescent dosage Piero HENDRICKSON [facility] 09-21-2009 influenza virus vaccine, H1N1, live Piero HENDRICKSON [facility] 09-05-2009 hepatitis A vaccine, adult dosage Piero HENDRICKSON [facility] 09-05-2009 hepatitis B vaccine, pediatric or pediatric/adolescent dosage Piero HENDRICKSON [facility] NEGATED: Highlighted row has not occurred!08-16-2023 influenza virus vaccine, unspecified formulation Piero HENDRICKSON [facility] NEGATED: Highlighted row has not occurred!08-16-2023 SARS-CoV-2 mRNA (tozinameran 5y-11y) vaccine Piero EMEKA [facility] Payers Date Payer Category Payer Unknown [id number] 2.16.84 [id number] 1965 Unknown [id number] 2.16.8 [id number] 1966 Unknown [id number] 2.16.8 [id number] 1966 Unknown [id number] 2.16.8 [id number] 1966 Unknown [id number] 2.16.8 [id number] 1958 Private Health Insurance [id number] Social History Date Type Detail Facility Start: 03-07-2021 End: 08-16-2023 Tobacco smoking status Never smoked tobacco (finding) [facility] Tobacco smoking status Never [facility] Sex Assigned At Female [facility] Functional Status Date Assessment Result Facility 08-16-2023 Functional Status N/A [facility] 05-18-2022 Functional Status N/A [facility] Evaluation + Plan note 08-16-2023 Radiology Note Date & Type Note Facility 08-16-2023 Evaluation + Plan note Future Scheduled TestsCT Abdomen/Pelvis w/o Contrast 08/16/23 [facility] Discharge instructions 08-16-2023 Note Date & Type Note Facility 08-16-2023 Hospital Discharg e instructions Patient Education 08/16/2023 08:23:19 Muscle Strain, Vzgc-zm-Itcy Muscle Strain A muscle strain, or pulled muscle, happens when a muscle is stretched beyond its normal length. This can tear some muscle fibers and cause pain. Usually, it takes 1 2 weeks to heal from a muscle strain. Full healing normally takes 5 6 weeks. What are the causes? This condition is caused when a sudden force is placed on a muscle and stretches it too far. This can happen with a fall, while lifting, or during sports. What increases the risk? You are more likely to develop a muscle strain if you are an athlete or you do a lot of physical activity. What are the signs or symptoms? Pain. Tenderness. Bruising. Swelling. Trouble using the muscle. How is this treated? This condition is first treated with BRAMBILA therapy. This involves: Protecting your muscle from being injured again. Resting your injured muscle. Icing your injured muscle. Putting pressure (compression) on your injured muscle. This may be done with a splint or elastic bandage. Raising (elevating) your injured muscle. Your doctor may also recommend medicine for pain. Follow these instructions at home: If you have a splint that can be taken off: Wear the splint as told by your doctor. Take it off only as told by your doctor. Check the skin around the splint every day. Tell your doctor if you see problems. Loosen the splint if your fingers or toes: ?Tingle. ?Become numb. ?Turn cold and blue. Keep the splint clean. If the splint is not waterproof: ?Do not let it get wet. ?Cover it with a watertight covering when you take a bath or a shower. Managing pain, stiffness, and swelling If told, put ice on your injured area. To do this: ?If you have a removable splint, take it off as told by your doctor. ?Put ice in a plastic bag. ?Place a towel between your skin and the bag. ?Leave the ice on for 20 minutes, 2 3 times a day. ?Take off the ice if your skin turns bright red. This is very important. If you cannot feel pain, heat, or cold, you have a greater risk of damage to the area. Move your fingers or toes often. Raise the injured area above the level of your heart while you are sitting or lying down. Wear an elastic bandage as told by your doctor. Make sure it is not too tight. General instructions Take cdbp-aht-vrqnvga and prescription medicines only as told by your doctor. This may include: ?Medicines for pain and swelling that are taken by mouth or put on the skin. ?Medicines to help relax your muscles. Limit your activity. Rest your injured muscle as told by your doctor. Your doctor may say that gentle movements are okay. If physical therapy was prescribed, do exercises as told by your doctor. Do not put pressure on any part of the splint until it is fully hardened. This may take many hours. Do not smoke or use any products that contain nicotine or tobacco. If you need help quitting, ask your doctor. Ask your doctor when it is safe to drive if you have a splint. Keep all follow-up visits. How is this prevented? Warm up before you exercise. This helps to prevent more muscle strains. Contact a doctor if: You have more pain or swelling in the injured area. Get help right away if: You have any of these problems in your injured area: ?Numbness. ?Tingling. ?Less strength than normal. Summary A muscle strain is an injury that happens when a muscle is stretched beyond normal length. This condition is first treated with BRAMBILA therapy. This includes protecting, resting, icing, adding pressure, and raising your injury. Limit your activity. Rest your injured muscle as told by your doctor. Your doctor may say that gentle movements are okay. Warm up before you exercise. This helps to prevent more muscle strains. This information is not intended to replace advice given to you by your health care provider. Make sure you discuss any questions you have with your health care provider. Document Revised: 01/26/2022 Document Reviewed: 01/26/2022 [employer] Patient Education 2022 [employer]. 08/16/2023 08:23:11 Cold Sore, Nmpq-yz-Vmqo Cold Sore A cold sore, also called a fever blister, is a small, fluid-filled sore that forms inside of the mouth or on the lips, gums, nose, chin, or cheeks. Cold sores can spread to other parts of the body, such as the eyes, fingers, or genitals. Cold sores can spread from person to person (are contagious) until the sores crust over completely. Most cold sores go away within 2 weeks. What are the causes? Cold sores are caused by a virus (herpes simplex virus type 1, HSV-1). The virus can spread from person to person through close contact, such as through: Kissing. Touching the affected area. Sharing personal items such as lip balm, razors, a drinking glass, or eating utensils. What increases the risk? Being tired, stressed, or sick. Having your period (menstruating). Being . Taking certain medicines. Being out in cold weather or getting too much sun. What are the signs or symptoms? Symptoms of a cold sore go through different stages: Tingling, itching, or burning is felt 1 2 days before the cold sore appears. Fluid-filled blisters appear on the lips, inside the mouth, on the nose, or on the cheeks. The blisters start to ooze clear fluid. The blisters dry up, and a yellow crust appears in their place. The crust falls off. In some cases, other symptoms can develop along with cold sores. These can include: Fever. Sore throat. Headache. Muscle aches. Swollen neck glands. How is this treated? There is no cure for cold sores or the virus that causes them. There is also no vaccine to prevent the virus. Most cold sores go away on their own without treatment within 2 weeks. Your doctor may prescribe medicines to: Help with pain. Keep the virus from growing. Help you heal faster. Medicines may be in the form of creams, gels, pills, or a shot. Follow these instructions at home: Medicines Take or apply tcmk-vev-jtnipqa and prescription medicines only as told by your doctor. Use a cotton-tip swab to apply creams or gels to your sores. Ask your doctor if you can take lysine supplements. These may help with healing. Sore care Do not touch the sores or pick the scabs. Wash your hands often with soap and water for at least 20 seconds. Do not touch your eyes without washing your hands first. Keep the sores clean and dry. If told, put ice on the sores. To do this: ?Put ice in a plastic bag. ?Place a towel between your skin and the bag. ?Leave the ice on for 20 minutes, 2 3 times a day. ?Take off the ice if your skin turns bright red. This is very important. If you cannot feel pain, heat, or cold, you have a greater risk of damage to the area. Eating and drinking Eat a soft, bland diet. Avoid eating hot, cold, or salty foods. These can hurt your mouth. Use a straw if it hurts to drink out of a glass. Eat foods that have a lot of lysine in them. These include meat, fish, and dairy products. Avoid sugary foods, chocolates, nuts, and grains. These foods have a high amount of a substance (arginine) that can cause the virus to grow. Lifestyle Do not kiss, have oral sex, or share personal items until your sores heal. Stress, poor sleep, and being out in the sun can trigger a cold sore. Make sure you: ?Do activities that help you relax, such as deep breathing exercises or meditation. ?Get enough sleep. ?Put sunscreen on your lips before you go out in the sun. Contact a doctor if: You have symptoms for more than 2 weeks. You have pus coming from the sores. You have redness that is spreading. You have pain or irritation in your eye. You get sores on your genitals. Your sores do not heal within 2 weeks. You get cold sores often. Get help right away if: You have a fever and your symptoms suddenly get worse. You have a headache and confusion. You have tiredness (fatigue). You do not want to eat as much as normal (loss of appetite). You have a stiff neck or are sensitive to light. Summary A cold sore is a small, fluid-filled sore that forms inside of the mouth or on the lips, gums, nose, chin, or cheeks. Cold sores can spread from person to person (are contagious) until the sores crust over completely. Most cold sores go away within 2 weeks. Wash your hands often. Do not touch your eyes without washing your hands first. Do not kiss, have oral sex, or share personal items until your sores heal. Contact a doctor if your sores do not heal within 2 weeks. This information is not intended to replace advice given to you by your health care provider. Make sure you discuss any questions you have with your health care provider. Document Revised: 08/19/2022 Document Reviewed: 08/19/2022 [employer] Patient Education 2022 [employer]. 08/16/2023 08:10:18 Flank Pain, Adult, Yvor-ok-Fbot Flank Pain, Adult Flank pain is pain in your side. The flank is the area on your side between your upper belly (abdomen) and your spine. The pain may occur over a short time (acute), or it may be long-term or come back often (chronic). It may be mild or very bad. Pain in this area can be caused by many different things. Follow these instructions at home: Drink enough fluid to keep your pee (urine) pale yellow. Rest as told by your doctor. Take swwx-cuy-uvtsmzi and prescription medicines only as told by your doctor. Keep a journal to keep track of: ?What has caused your flank pain. ?What has made your flank pain feel better. Keep all follow-up visits. Contact a doctor if: Medicine does not help your pain. You have new symptoms. Your pain gets worse. Your symptoms last longer than 2 3 days. You have trouble peeing. You are peeing more often than normal. Get help right away if: You have trouble breathing. You are short of breath. Your belly hurts, or it is swollen or red. You feel like you may vomit (nauseous). You vomit. You feel faint, or you faint. You have blood in your pee. You have flank pain and a fever. These symptoms may be an emergency. Get help right away. Call your local emergency services (911 in the [place] Do not wait to see if the symptoms will go away. Do not drive yourself to the hospital. Summary Flank pain is pain in your side. The flank is the area of your side between your upper belly (abdomen) and your spine. Flank pain may occur over a short time (acute), or it may be long-term or come back often (chronic). It may be mild or very bad. Pain in this area can be caused by many different things. Contact your doctor if your symptoms get worse or last longer than 2 3 days. This information is not intended to replace advice given to you by your health care provider. Make sure you discuss any questions you have with your health care provider. Document Revised: 01/19/2022 Document Reviewed: 01/19/2022 [employer] Patient Education 2022 [employer]. Follow Up Care 04/22/2023 15:20:47 With:EMEKA JAY FAAFP, Piero Solis, FAUSTINA, PED Address: [address] [place] [address] [place] [address]- When:Within 1 Year(s) [facility] Discharge instructions 05-18-2022 Note Date & Type Note Facility 05-18-2022 Hospital Discharg e instructions Patient Education 05/18/2022 10:28:03 Preventing Hypertension Preventing Hypertension Hypertension, commonly called high blood pressure, is when the force of blood pumping through the arteries is too strong. Arteries are blood vessels that carry blood from the heart throughout the body. Over time, hypertension can damage the arteries and decrease blood flow to important parts of the body, including the brain, heart, and kidneys. Often, hypertension does not cause symptoms until blood pressure is very high. For this reason, it is important to have your blood pressure checked on a regular basis. Hypertension can often be prevented with diet and lifestyle changes. If you already have hypertension, you can control it with diet and lifestyle changes, as well as medicine. What nutrition changes can be made? Maintain a healthy diet. This includes: Eating less salt (sodium). Ask your health care provider how much sodium is safe for you to have. The general recommendation is to consume less than 1 tsp (2,300 mg) of sodium a day. ?Do not add salt to your food. ?Choose low-sodium options when grocery shopping and eating out. Limiting fats in your diet. You can do this by eating low-fat or fat-free dairy products and by eating less red meat. Eating more fruits, vegetables, and whole grains. Make a goal to eat: ?1 2 cups of fresh fruits and vegetables each day. ?3 4 servings of whole grains each day. Avoiding foods and beverages that have added sugars. Eating fish that contain healthy fats (omega-3 fatty acids), such as mackerel or salmon. If you need help putting together a healthy eating plan, try the DASH diet. This diet is high in fruits, vegetables, and whole grains. It is low in sodium, red meat, and added sugars. DASH stands for Dietary Approaches to Stop Hypertension. What lifestyle changes can be made? Lose weight if you are overweight. Losing just 3?5% of your body weight can help prevent or control hypertension. ?For example, if your present weight is 200 lb (91 kg), a loss of 3 5% of your weight means losing 6 10 lb (2.7 4.5 kg). ?Ask your health care provider to help you with a diet and exercise plan to safely lose weight. Get enough exercise. Do at least 150 minutes of moderate-intensity exercise each week. ?You could do this in short exercise sessions several times a day, or you could do longer exercise sessions a few times a week. For example, you could take a brisk 10-minute walk or bike ride, 3 times a day, for 5 days a week. Find ways to reduce stress, such as exercising, meditating, listening to music, or taking a yoga class. If you need help reducing stress, ask your health care provider. Do not smoke. This includes e-cigarettes. Chemicals in tobacco and nicotine products raise your blood pressure each time you smoke. If you need help quitting, ask your health care provider. Avoid alcohol. If you drink alcohol, limit alcohol intake to no more than 1 drink a day for non women and 2 drinks a day for men. One drink equals 12 oz of beer, 5 oz of wine, or 1 oz of hard liquor. Why are these changes important? Diet and lifestyle changes can help you prevent hypertension, and they may make you feel better overall and improve your quality of life. If you have hypertension, making these changes will help you control it and help prevent major complications, such as: Hardening and narrowing of arteries that supply blood to: ?Your heart. This can cause a heart attack. ?Your brain. This can cause a stroke. ?Your kidneys. This can cause kidney failure. Stress on your heart muscle, which can cause heart failure. What can I do to lower my risk? Work with your health care provider to make a hypertension prevention plan that works for you. Follow your plan and keep all follow-up visits as told by your health care provider. Learn how to check your blood pressure at home. Make sure that you know your personal target blood pressure, as told by your health care provider. How is this treated? In addition to diet and lifestyle changes, your health care provider may recommend medicines to help lower your blood pressure. You may need to try a few different medicines to find what works best for you. You also may need to take more than one medicine. Take ommz-lxz-fuivboh and prescription medicines only as told by your health care provider. Where to find support Your health care provider can help you prevent hypertension and help you keep your blood pressure at a healthy level. Your local hospital or your community may also provide support services and prevention programs. The [place] [employer] offers an online support network at: http://supportnetwork.heart.org /ixgo-toaqe-gmkgpyvx Where to find more information Learn more about hypertension from: National Heart, Lung, and Blood [place]: www.nhlbi.nih.gov/health/health -topics/topics/hbp Centers for Disease Control and Prevention: www.cdc.gov/bloodpressure [place] [employer]: http://familydoctor.org/familyd octor/en/diseases-conditions/hi kn-lzazv-firxlsjo.printerview.a ll.html Learn more about the DASH diet from: National Heart, Lung, and Blood [place]: www.nhlbi.nih.gov/health/health -topics/topics/dash Contact a health care provider if: You think you are having a reaction to medicines you have taken. You have recurrent headaches or feel dizzy. You have swelling in your ankles. You have trouble with your vision. Summary Hypertension often does not cause any symptoms until blood pressure is very high. It is important to get your blood pressure checked regularly. Diet and lifestyle changes are the most important steps in preventing hypertension. By keeping your blood pressure in a healthy range, you can prevent complications like heart attack, heart failure, stroke, and kidney failure. Work with your health care provider to make a hypertension prevention plan that works for you. This information is not intended to replace advice given to you by your health care provider. Make sure you discuss any questions you have with your health care provider. Document Released: 11/22/2016 Document Revised: 03/01/2020 Document Reviewed: 07/19/2017 [employer] Patient Education 2020 [employer]. Follow Up Care 05/05/2022 13:24:35 With:EMEKA JAY FAAFP, Piero Solis, FAUSTINA, PED Address: [address] [place] [id number] When:Within 1 Year(s) [facility] Evaluation + Plan note 05-09-2022 Note Date & Type Note Facility 05-09-2022 Evaluation + Plan note Diagnostic Tests PendingPAP 357152 IG Apt HPV,rfx 16/18,45 05/19/22 [facility] Evaluation + Plan note Note Date & Type Note Facility Evaluation + Plan note No data available for this section [facility] Discharge instructions Note Date & Type Note Facility Hospital Discharge instructions No data available for this section [facility] Progress note Note Date & Type Note Facility Progress note No data available for this section [facility] Summary Purpose Family History No Family History Records FoundNo Family History Records Found Advance Directives No Advanced Directives Records FoundNo Advanced Directives Records Found Additional Source Comments Care Team (unrecognized sect ion and content) Personnel Name: Piero HENDRICKSON DO, FAAFP Address: [address] [facility] [address] Personnel Name: Piero HENDRICKSON DO, FAAFP Address: [address] [facility] [address] Personnel Name: Piero HENDRICKSON DO, FAAFP Address: [address] Personnel Name: Piero HENDRICKSON DO, FAAFP Address: [address] Personnel Name: Piero HENDRICKSON DO, FAAFP Address: Address: [address] [place] [address] INFORMATION SOURCE (unrecogn ized section and content) DATE CREATED AUTHOR 06/11/2022 [facility] DATE CREATED AUTHOR 'S TERRY ATION 08/31/2023 [facility] FOR RECORDS PERTAINING TO PATIENTS WHO ARE OR HAVE BEEN ENROLLED IN A CHEMICAL DEPENDENCY/SUBSTANCEABUSE PROGRAM, SOME INFORMATION MAY BE OMITTED. This clinical summary was aggregated from multiple sources. Caution should be exercised in using it in the provision of clinical care. This summary normalizes information from multiple sources, and as a consequence, information in this document may materially change the coding, format and clinical context of patient data. In addition, data may be omitted in some cases. CLINICAL DECISIONS SHOULD BE BASED ON THE PRIMARY CLINICAL RECORDS. [facility] [employer] [facility]. provides no warranty or guarantee of the accuracy or completeness of information in this document."
--- NOTE | 2024-02-04 07:57 | VEIN_ITS ---
[address] [address] Patient Name: KATYA CORONEL MRN: [id number] date: 1965 Sex: F Assigned Patient Location: Current Patient Location: Accession/Order Number: [id number] Exam Date: 02/04/2024 07:59 Report Date: 02/04/2024 09:03 At the request of: ODALYS MERIDA Procedure: VC Endovenous Ablation 1VeinRT EXAMINATION: VC Endovenous Ablation 1VeinRT HISTORY: I83.813 Bilateral painful varicose veins The risks and benefits of the procedure had been previously discussed, and were rediscussed at length. Informed written consent was obtained. Tanner Jacome RN and Giovanna Greer RDMS assisted. Time out procedure was performed. The right lower extremity was prepared and draped in the usual sterile fashion to allow knee flexion in the sterile field. Duplex ultrasound probe was draped in a sterile cover, sterile transmission gel was used. Venous mapping was performed with the areas of dilation and large tributaries marked. The total length was 23 cm from the entry 3 cm above the ankle to 3 cm below the saphenofemoral popliteal junction. The diameter of the right small saphenous vein ranged from 5.8 mm. A 30 gauge needle and 1% buffered lidocaine was used to anesthetize the entry site. A 4 mm incision was made with a scalpel and the saphenous vein was entered percutaneously under direct ultrasound guidance with a micropuncture set, a single stick was successful in gaining access. A micro-guide wire was inserted and the needle removed. A micro-set including a dilator was inserted over the microwire and the needle and dilator were removed. A guide wire was inserted through the micro-set and guided through the saphenous vein to the saphenofemoral junction. The dilator was removed and an introducer sheath was inserted over the wire until the end of the sheath entered the saphenofemoral junction. The dilator and wire were removed and the 600 micron fiber was introduced and placed and positioned so that it extended beyond the sheath and was 3 cm distal to the saphenofemoral or saphenopopliteal junction. Final position of the fiber was determined by ultrasound guidance and duplex imaging. Tumescent anesthetic was delivered by ultrasound guidance. 100 cc of fluid was delivered along the entire course of the saphenous vein. The solution consisted of 1000 cc of normal saline with 40 mL of 1% lidocaine and 20 mL of sodium bicarbonate. A final positioning check was made. The energy source was turned on by means of the foot pedal and the fiber and sheath were withdrawn. The total number of Joules delivered was 1218. The laser was active for 152 seconds under continuous pulse, average laser use of 8 J. Laser start time: 8:42 AM Laser stop time: 8:45 AM Date: 02/04/2024. A duplex ultrasound revealed compressibility and flow at the saphenofemoral junction immediately after the procedure. Hemostasis at the access site was achieved. The skin incision of the saphenous vein was closed with a 4 x 4. A compression stocking was applied. Postop instructions were given. A follow up appointment was recommended and scheduled. The patient tolerated the procedure well. Electronically authenticated by: ZEESHAN TUCKER Date: 02/04/2024 09:03
[2024-02-04] MEDS: 0.9 % SODIUM CHLORIDE 500 ML, LIDOCAINE HCL 20 ML, SODIUM BICARBONATE 10 MEQ INJ (07:58)
[2024-02-04] MEDS: LIDOCAINE HCL 1% 100 MG/10 ML MDV INJ (07:58)
== END 2024-02-04 07:54 | disposition home or self-care (01) ==
LOC: VC 07:53
PROVIDERS: PCP Radiology Diagnostic Radiology; Visit Provider Radiology Diagnostic Radiology
DX: I83.813 Varicose veins of bilateral lower extremities with pain (principal)
CPT/HCPCS: 36478

== ENCOUNTER 2024-02-11 09:24 | Outpatient (OUT) | payer OTHER, SELFPAY ==
--- NOTE | 2024-02-11 09:25 | VEIN_ITS ---
Patient Name: KATYA CORONEL MR#: [id number] : 1965 Exam Date: 02/11/2024 Ordering Doctor: DR ODALYS MERIDA M.D. RADIOLOGY REPORT PROCEDURE: [facility] - OFFICE VISIT FOLLOW UP COMPARISON: None. PROGRESS NOTES: The patient reports improvement in leg symptoms. There has been interval reduction in varicosities. The patient has followed our recommendations to walk 20-30 minutes once or twice per day since the procedure. Physical exam demonstrates decrease in varicosities of the leg. Persistent varicosities are identified along the legs bilaterally. Review of the ultrasound performed the same day demonstrates occlusive thrombus extending throughout the treated vein(s), see separate report, consistent with a successful ablation. No thrombus extending into or beyond the saphenofemoral junction. The patient expressed a desire to proceed with treatment of incompetent branch saphenous varicosities. The patient was informed that treatment was a process and would require several procedures/sessions. VEIN/ Facility EST LMTD IMPRESSION: 1. Successful ablation of the right small saphenous vein(s). 2. Persistent incompetent varicose veins and lower extremity symptoms. PLAN: Microfoam chemical ablation of left and right lower extremity incompetent branch saphenous varicosities. Nurse notes, history and physical were reviewed and confirmed, see attached forms. The nurse was present throughout the physical exam and consultation Dictated by: Marlo Gomez M.D. on 02/11/2024 at 09:56 Approved by: Marlo Gomez M.D. on 02/11/2024 at 09:56
--- NOTE | 2024-02-11 09:25 | VEIN_ITS ---
Patient Name: KATYA CORONEL MR#: [id number] : 1965 Exam Date: 02/11/2024 Ordering Doctor: DR ODALYS MERIDA M.D. RADIOLOGY REPORT PROCEDURE: VC EXT VENOUS RT LMTD COMPARISON: None. INDICATIONS: I80.01 Phlebitis of superficial veins of rt lower extremity TECHNIQUE: Lower extremity womack scale and Duplex Doppler evaluation of the deep venous system from the inguinal ligament through the calf veins. FINDINGS: REGION: Right lower extremity. THROMBI: Negative for DVT. Heat induced thrombus visualized 2.9cm from the SPJ. The heat induced thrombus extends from SPJ to distal calf. COMPRESSIBILITY: Non-compressible segments corresponding to thrombus FLOW: Areas of no flow corresponding to thrombus OTHER: CONCLUSION: 1. Successful post ablation occlusion of right small saphenous vein. Dictated by: Marlo Gomez M.D. on 02/11/2024 at 09:42 Approved by: Marlo Gomez M.D. on 02/11/2024 at 09:55
--- OUTSIDE RECORDS SUMMARY | 2024-02-11 09:27 | XMS_ITS | CCD ---
Author Organization [facility] Care Team Providers Care Pearl Cutter Name Role Phone Piero HENDRICKSON Primary Care Physician [phone] SHARON, DR JENKINS Attending Unavailable SHARON, DR JENKINS Consulting Unavailable SHARON, DR JENKINS Admitting Unavailable Piero HENDRICKSON Attending Unavailable Piero HENDRICKSON Admitting Unavailable Piero HENDRICKSON Referring Unavailable Jonh Ann Referring Unavailable Jonh Ann Attending Unavailable Jonh Ann Admitting Unavailable Piero HENDRICKSON Admitting Unavailable Piero HENDRICKSON Attending Unavailable Piero HENDRICKSON Attending Unavailable Allergies Allergy Classification Reported Allergen(s) Allergy Type Date of Onset Reaction(s) Facility (7 sources) Erythromycin; Translations: [erythromycin] Drug Allergy unknown [facility] (7 sources) Ramipril; Translations: [ramipril] Drug Allergy angioedema [facility] (7 sources) Sulfonamides (Antibiotic); Translations: [sulfa drugs] Drug allergy unknown [facility] (1 source) Angiotensin Converting Enzyme (Ben) Inhibitors Drug allergy (disorder) 11-22-2014 [facility] (1 source) Erythromycin Drug Allergy [facility] (1 source) Sulfonamides (Antibiotic) Drug allergy (disorder) 11-22-2014 [facility] Medications Current Medications Medication Drug Class(es) Dates Sig (Normalized) Sig (Original) carvedilol 12.5 mg oral tablet (6 sources) alpha-Adrenergic Michael, beta-Adrenergic Michael Start: 08-16-2023 take 1 tablet by mouth twice daily Coreg 12.5 mg Tab 12.5 mg = 1 tab(s), Oral, BID, # 180 tab(s), Refills(s) 3, Pharmacy: [facility], 154, cm, 08/16/23 7:47:00 EDT, Height/Length Dosing, 77, kg, 08/16/23 7:46:00 EDT, Weight Dosing Start Date: 08/16/23 Status: Ordered Start: 02-27-2022 take 1 tablet by gabriela th twice daily Coreg 12.5 mg Tab 12.5 mg = 1 tab(s), Oral, BID, # 180 tab(s), Refills(s) 3, Pharmacy: [facility], 154, cm, 12/15/21 15:27:00 EST, Height/Length Dosing, 74.4, kg, 12/15/21 15:27:00 EST, Weight Dosing Start Date: 02/27/22 Status: Ordered cyclobenzaprine hydrochloride 10 mg oral tablet (1 source) Muscle Relaxant Start: 02-25-2022 take 1 tablet by mouth at bedtime cyclobenzaprine 10 mg Tab 10 mg = 1 tab(s), Oral, Bedtime, # 30 tab(s), Refills(s) 1, Pharmacy: [facility] #[id number], 154, cm, 12/15/21 15:27:00 EST, Height/Length [...] Spasm, # 50 tab(s), Refills(s) 1, Pharmacy: [facility]/pharmacy #[id number], 154, cm, 08/16/23 7:47:00 EDT, Height/Length [...] BID, # 30 tab(s), Refills(s) 3, Pharmacy: [facility]/pharmacy #[id number], 154, cm, 08/16/23 7:47:00 EDT, Height/Length [...] low as reasonably achievable. Ordering Provider: Piero HENDRICKSON FINAL REPORT Dictated: 08/30/2023 11:59 am Maury Rueda MD Signed (Electronic Signature): 08/30/2023 11:59 am Signed by: Maury Rueda MD Transcribed by: CONSTANZA Technologist: JESI Technical Comments Rectal Contrast Given? No Oral contrast amount in ml's: 0 Normal [facility] Consent for Treatmenton Consent for Treatment [id number] #1.00TIFF Normal [facility] Insurance Correspondenceon 0 08-18-2023 Insurance Correspondence [id number]#1.00CD:127 Normal [facility] Ambulatory Visit Summaryon 0 08-16-2023 Ambulatory Visit Summary KATYA CORONEL :1965 Visit Date:08/16/2023 Ambulatory Visit Instructions Your [...] PED When: In 1 year Where: [address], [place] [address]- You Need to Complete the Following CT Abdomen/Pelvis w/o Contrast, 08/16/23, Routine, Order for future visit, Transport Mode: Ambulatory, Reason: Pain, No, No, Left flank pain, pp_set_radiology_sub specialty, [facility] - [facility] Medications What How Much When Why Instructions New valacyclovir (Valtrex 1 g Tab) 1 Tablets By Mouth 2 times a day Recurrent cold sores Refills: 3 Pickup at [id number] Unchanged carvedilol (Coreg 12.5 mg Tab) 1 Tablets By Mouth 2 times a day [facility]up at [facility] Pharmacy Information [facility]: [address] [facility] [address] [place], [place] [id number] [phone] [id number]: [address] [place], [place] [id number] [phone] Medications and Immunizations Administered Not Given influenza [...] as told by your doctor. ? Take ijvj-ozh-qypnlyl and prescription medicines only as told by [...] provider. Document Revised: 01/19/2022 Document Reviewed: 01/19/2022 [employer] Patient Education ? 2022 [employer]. Darin Mijares [facility] Family Medicine Office/Clini c Noteon 08-16-2023 Family [...] Spasm, # 50 tab(s), Refills(s) 1, Pharmacy: [facility]/pharmacy #[id number], 154, cm, 08/16/23 7:47:00 EDT, Height/Length Dosing, 77, kg, 08/16/23 7:46:00 EDT, Weight Dosing CT Abdomen/Pelvis w/o Contrast 7. 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 Normal [facility] Comment on above: Result Comment: Elec tronically Signed By: EMEKA JAY FAAFP, Piero Solis\.br\Date and Time Signed: 08/16/23 08:24 EDT Patient Educationon 08-16-20 Patient Education Infectious Disease Cold Sore A [...] at home: Medicines ? Take or apply aftg-bac-cxyekjj and prescription medicines only as told by [...] provider. Document Revised: 08/19/2022 Document Reviewed: 08/19/2022 [employer] Patient Education ? 2022 [employer]. Orthopedics Muscle Strain A muscle strain, o (more content not included)... Normal [facility] [place] Mamm Screen w/CAD if perf [...] very important to your health. The current [employer] and National Comprehensive Cancer [...] Angelito Vidal M.D. Transcribed by: CONSTANZA Technologist: [facility] Assessment: BI-RADS Category 2-Benign finding Recommendation: Normal interval follow-up Normal [facility] Consent for Treatmenton 05-23 Consent for Treatment [id number] #1.00CD:127 Normal [facility] Physician Orderon 06-07-2023 Physician Order [id number] #1.00CD:127 Normal [facility] Auto Diffon 04-30-2023 Basophils/100 WBC (Bld) 0.9 % Normal 0.0-2.0 [facility] Comment on above: Order Comment: Order Added by Giancarlo Expert. Performed By: #### 2 925764, 5374549, 7580404, 5680421, 0135769, 17309190 #### [facility] [address] [place] [address] Basophils/Leukocytes Auto (Bld) [Pure # fraction] 0.0 E9/L Normal 0.0-0.2 [facility] Comment on above: Order Comment: Order Added by Discern Expert. Performed By: #### 2 842122, 5300578, 0756103, 8863001, 2556417, 23258196 #### [facility] [address] [place] [address]359 Eosinophils/100 WBC (Bld) 2.7 % Normal 0.0-8.0 [facility] Comment on above: Order Comment: Order Added by Giancarlo Expert. Performed By: #### 2 295566, 1717900, 8727361, 2020878, 8896779, 03719873 #### [facility] [address] [place] [address] 41902 Eosinophils/Leukocyte s Auto (Bld) [Pure # fraction] 0.1 E9/L Normal 0.0-0.5 [facility] Comment on above: Order Comment: Order Added by Giancarlo Expert. Performed By: #### 2 813467, 8595097, 6399703, 9128551, 1939831, 69361941 #### [facility] [address] [place] [address] 21653 Lymphocytes/100 WBC (Bld) 31.3 % Normal 14.0-50.0 [facility] Comment on above: Order Comment: Order Added by Giancarlo Expert. Performed By: #### 2 271940, 1034924, 9510472, 3380362, 6294007, 79750255 #### [facility] [address] [place] [address] Lymphocytes/Leukocyte s Auto (Bld) [Pure # fraction] 1.2 E9/L Normal 1.0-4.0 [facility] Comment on above: Order Comment: Order Added by Discern Expert. Performed By: #### 2 489420, 8694213, 5361718, 1380715, 9438885, 17442900 #### [facility] [address] [place] [address]018 Monocytes/100 WBC (Bld) 11.7 % Normal 4.0-14.0 [facility] Comment on above: Order Comment: Order Added by Discern Expert. Performed By: #### 2 943472, 4377184, 4391505, 9538627, 0970573, 24165779 #### [facility] [address] [place] [address] Monocytes/Leukocytes Auto (Bld) [Pure # fraction] 0.5 E9/L Normal 0.2-1.0 [facility] Comment on above: Order Comment: Order Added by Giancarlo Expert. Performed By: #### 2 347522, 9907438, 5656822, 5925710, 9660795, 64051579 #### [facility] [address] [place] [address]335 Neutrophils/100 WBC (Bld) 53.4 % Normal 36.0-75.0 [facility] Comment on above: Order Comment: Order Added by Discern Expert. Performed By: #### 2 364561, 0931168, 0479266, 2432900, 1091441, 30807039 #### [facility] [address] [place] [address] 04568 Neutrophils/Leukocyte s Auto (Bld) [Pure # fraction] 2.1 E9/L Normal 2.0-7.5 [facility] Comment on above: Order Comment: Order Added by Discern Expert. Performed By: #### 2 561826, 1200642, 4420399, 3126433, 8041977, 30173348 #### [facility] [address] [place] [address] BMPon 04-30-2023 Anion gap [Moles/Vol] 10 mmol/L Normal 6-16 [facility] Comment on above: Performed By: #### 2 754658, 2898523, 7190095, 2960977, 4273837, 11479738 #### [facility] [address] [place] [address] Calcium [Mass/Vol] 8.9 mg/dL Normal 8.9-11.1 [facility] Comment on above: Performed By: #### 2 824041, 3236165, 0046555, 6435821, 6362841, 86992383 #### [facility] [address] [place] [address] Chloride [Moles/Vol] 107 mmol/L Normal 101-111 [facility] Comment on above: Performed By: #### 2 711020, 1048185, 3608947, 5844387, 3693415, 90091952 #### [facility] [address] [place] [address] CO2 [Moles/Vol] 26 mmol/L Normal 21-31 [facility] Comment on above: Performed By: #### 2 629405, 6381166, 3828452, 4415295, 5322585, 99004716 #### [facility] [address] [place] [address] Creatinine [Mass/Vol] 0.7 mg/dL Normal 0.5-1.3 [facility] Comment on above: Performed By: #### 2 994501, 5870318, 6926781, 3027825, 1050015, 86963142 #### [facility] [address] [place] [address] Glucose [Mass/Vol] 92 mg/dL Normal 55-199 [facility] Comment on above: Result Comment: If t his glucose result represents a fasting glucose, interpretation should refer to the following reference range: 55-99 mg/dL Performed By: #### 2 766541, 9470716, 5837296, 0613027, 8921823, 01392015 #### [facility] [address] [place] [address] Potassium [Moles/Vol] 3.9 mmol/L Normal 3.5-5.3 [facility] Comment on above: Performed By: #### 2 030698, 1663787, 3707681, 9812339, 6626898, 15699443 #### [facility] [address] [place] [address] Sodium [Moles/Vol] 139 mmol/L Normal 135-145 [facility] Comment on above: Performed By: #### 2 801680, 7687802, 7756785, 0296178, 7801249, 29382424 #### [facility] [address] [place] [address] Urea nitrogen [Mass/Vol] 19 mg/dL Normal 5-21 [facility] Comment on above: Performed By: #### 2 128696, 8468808, 6826233, 3778913, 0364232, 45807573 #### [facility] [address] [place] [address] Urea nitrogen/Creatinine [Mass ratio] 27 No Units High 10-20 [facility] Comment on above: Performed By: #### 2 708820, 9027941, 2309611, 7145266, 5944561, 26303340 #### [facility] [address] [place] [address] CBC w/ Auto Diffon 3 Erythrocyte distribution width (RBC) [Ratio] 12.3 % Normal 10.9-14.2 [facility] Comment on above: Performed By: #### 2 141007, 3131725, 6904557, 3864452, 8126706, 02116269 #### [facility] [address] [place] [address] Hematocrit (Bld) [Volume fraction] 35.9 % Normal 34.0-46.0 [facility] Comment on above: Performed By: #### 2 495066, 7639297, 8141780, 6555584, 0279763, 37132598 #### [facility] [address] [place] [address] Hemoglobin (Bld) [Mass/Vol] 12.1 g/dL Normal 12.0-16.0 [facility] Comment on above: Performed By: #### 2 297649, 7792725, 9659742, 7207233, 4341952, 36507138 #### [facility] [address] [place] [address] 46907 MCH (RBC) [Entitic mass] 32.5 pg Normal 27.0-34.0 [facility] Comment on above: Performed By: #### 2 539158, 5864281, 2766451, 6270953, 6880955, 21170940 #### [facility] [address] [place] [address] MCHC (RBC) [Mass/Vol] 33.8 g/dL Normal 31.4-36.0 [facility] Comment on above: Performed By: #### 2 441071, 6472482, 6528725, 4932151, 4088373, 55333469 #### [facility] [address] [place], [place] [address] MCV (RBC) [Entitic vol] 96.1 fL Normal 80.0-100.0 [facility] Comment on above: Performed By: #### 2 104610, 8278199, 9289708, 0449625, 2747377, 92601545 #### [facility] [address] [place] [address] Platelet mean volume (Bld) [Entitic vol] 8.9 fL Normal 6.4-10.8 [facility] Comment on above: Performed By: #### 2 255887, 7590930, 3948436, 2052649, 6274641, 88172001 #### [facility] [address] [place] [address] Platelets (Bld) [#/Vol] 186.0 E9/L Normal 150.0-500.0 [facility] Comment on above: Performed By: #### 2 449809, 7770864, 4743825, 3013935, 1975956, 43205945 #### [facility] [address] [place] [address]48[address] RBC (Bld) [#/Vol] 3.7 E12/L Low 4.3-5.9 [facility] Comment on above: Performed By: #### 2 207932, 2556779, 7014790, 3523556, 9636254, 42071499 #### [facility] [address] [place] [address] WBC corrected for nucl RBC Auto (Bld) [#/Vol] 3.9 E9/L Low 4.0-11.0 [facility] Comment on above: Performed By: #### 2 976684, 1217079, 2574256, 4010478, 0521506, 50879536 #### [facility] [address] [place] [address] Consent for Treatmenton Consent for Treatment [id number] 30 [id number] #1.00CD:127 Normal [facility] Hep Func Panelon 04-30-2023 Albumin [Mass/Vol] 3.7 g/dL Normal 3.3-5.0 [facility] Comment on above: Performed By: #### 2 459474, 3990013, 6770628, 8249433, 1788153, 64803102 #### [facility] [address] [place] [address] Albumin/Globulin (S) [Mass conc ratio] 1.1 Normal 1.1-2.2 [facility] Comment on above: Performed By: #### 2 445076, 7002537, 5141206, 8232491, 9609926, 99520748 #### [facility] [address] [place] [address] ALP [Catalytic activity/Vol] 78 Int._Unit/L Normal 21-98 [facility] Comment on above: Performed By: #### 2 054198, 8827856, 6622765, 8102895, 0370073, 45605062 #### [facility] [address] [place] [address] ALT No additional P-5'-P [Catalytic activity/Vol] 20 Int._Unit/L Normal 6-46 [facility] Comment on above: Performed By: #### 2 680488, 1097474, 2109966, 3258275, 7078063, 59152226 #### [facility] [address] [place] [address] AST [Catalytic activity/Vol] 23 Int._Unit/L Normal 5-43 [facility] Comment on above: Performed By: #### 2 802401, 3631270, 0586032, 0249160, 8466848, 62838541 #### [facility] [address] [place] [address] Bilirubin [Mass/Vol] 1.0 mg/dL Normal 0.0-1.1 [facility] Comment on above: Performed By: #### 2 080637, 2131418, 2417301, 8569162, 5800970, 77374249 #### [facility] [address] [place] [address] Bilirubin.direct [Mass/Vol] 0.1 mg/dL Normal 0.1-0.4 [facility] Comment on above: Performed By: #### 2 568149, 5892020, 0722210, 3687703, 4741823, 59867282 #### [facility] [address] [place] [address] Bilirubin.indirect [Mass or moles/Vol] 0.9 mg/dL Normal 0.1-0.9 [facility] Comment on above: Performed By: #### 2 208096, 2394977, 5834625, 4979627, 5642323, 55118653 #### [facility] [address] [address] Globulin (S) [Mass/Vol] 3.5 g/dL Normal 1.4-4.0 [facility] Comment on above: Performed By: #### 2 504282, 4597792, 1481970, 9243268, 6657649, 48972393 #### [facility] [address] [place] [address] Protein [Mass/Vol] 7.2 g/dL Normal 6.0-7.8 [facility] Comment on above: Performed By: #### 2 795916, 4111746, 1057215, 1663042, 9336738, 85249480 #### [facility] [address] [place] [address] Lipid Panelon 04-30-2023 Cholesterol [Mass/Vol] 162 mg/dL Normal 120-200 [facility] Comment on above: Performed By: #### 2 207484, 7714670, 9397053, 7455589, 1897593, 74124917 #### [facility] [address] [place] [address] Cholesterol in HDL [Mass/Vol] 62 mg/dL Invalid Interpretation Code [facility] Comment on above: Result Comment: HDL > or equal to 60 mg/dL: Low cardiovascular risk HDL < 40 mg/dL : High cardiovascular risk Performed By: #### 2 752933, 9048509, 0125993, 6754730, 6590853, 04120496 #### [facility] [address] [place] [address] Cholesterol in LDL [Mass/Vol] 96 mg/dL Normal <=129 [facility] Comment on above: Performed By: #### 2 465819, 0515309, 2523027, 7912621, 7029391, 83407290 #### [facility] [address] [place] [address] Cholesterol in VLDL [Mass/Vol] 8 mg/dL Normal 7-40 [facility] Comment on above: Performed By: #### 2 949147, 6605022, 8803902, 6291983, 5009162, 68904540 #### [facility] [address] [place] [address] Triglyceride [Mass/Vol] 40 mg/dL Normal <=149 [facility] Comment on above: Performed By: #### 2 124756, 0503422, 3759996, 0735117, 5307759, 71897280 #### [facility] [address] [place] [address] eGFRon 04-30-2023 GFR/1.73 sq M.predicted among non-blacks MDRD (S/P/Bld) [Vol rate/Area] 101 mL/min/1.73 m2 Normal >=59 [facility] Comment on above: Order Comment: Order added by Discern Expert. Result Comment: Seaming Inspector felipa kidney disease could be indicated at eGFR's of less than 60 mL/min/1.73m2. Kidney failure is indicated at less than 15 mL/min/1.73m2. Performed By: #### 2 772009, 5469207, 2558407, 4337822, 2186133, 57551480 #### [facility] [address] [place] [address] Covid-19 PCR (CVDTB)on 05-22 SARS-CoV-2 (COVID-19) RNA AURA+probe Ql (Unsp spec) Not detected Normal NOT DETECTED [facility] Comment on above: Result Comment: This test is not yet approved or cleared by the [place] FDA. When there are no FDA-approved or cleared tests available, and other criteria are met, FDA can make tests available under an emergency access mechanism called an Emergency Use Authorization (EUA). The EUA for this test is supported by the Grease Cup Filler of Health and Human Service's (HHS's) declaration [...] SARS-CoV-2. Performed By: #### C VDTBH #### [facility] [address] [address] [address] Tomas Chauhan CHEMISTRYOrdered By: SYSTEM SYSTEM [...] 34.5 g/dL Normal 31.4 - 36.0 gm/dL [facility] HemeAutoSS MCV (RBC) [Entitic vol] 99.2 fL Normal 80.0 - 100.0 fL FT HemeAutoSS Platelet mean volume (Bld) [Entitic vol] 8.8 fL Normal 6.4 - 10.8 fL FT [facility]eAutoSS Platelets (Bld) [#/Vol] 215.0 E9/L Normal 150.0 - 500.0 E9/L FT HemeAutoSS RBC (Bld) [#/Vol] 3.6 E12/L Low 4.3 - 5.9 E12/L FT HemeAutoSS WBC corrected for nucl RBC Auto (Bld) [#/Vol] 4.5 E9/L Normal 4.0 - 11.0 E9/L [facility] HemeAutoSS Vital Signs Date Time Vital Sign Value Performing Clinician Faci lity 08-16-2023 07:39-0400 Blood Pressure Location Piero MARYANERICA [facility] 08-16-2023 07:39-0400 Body temperature 98.42 [degF] Piero MARYANPaylocity [facility] 08-16-2023 07:39-0400 Diastolic blood pressure 82 mm[Hg] Piero MARYANLE [facility] 08-16-2023 07:39-0400 Heart rate 76 /min Piero MARYANLE [facility] 08-16-2023 07:39-0400 Respiratory rate 16 /min Piero MARYANLE [facility] 08-16-2023 07:39-0400 SaO2% (BldA) [Mass fraction] 99 % Piero STEINBERGERICA [facility] 08-16-2023 07:39-0400 Systolic blood pressure 120 mm[Hg] Piero HENDRICKSON [facility] 05-18-2022 10:04-0400 Blood Pressure Location Piero KAPLE [facility] 05-18-2022 10:04-0400 Body temperature 97.88 [degF] Piero KAPLE [facility] 05-18-2022 10:04-0400 Diastolic blood pressure 78 mm[Hg] Piero KAPLE [facility] 05-18-2022 10:04-0400 Heart rate 84 /min Piero KAPLE [facility] 05-18-2022 10:04-0400 Respiratory rate 16 /min Piero KAPLE [facility] 05-18-2022 10:04-0400 SaO2% (BldA) [Mass fraction] 98 % Piero KAPLE [facility] 05-18-2022 10:04-0400 Systolic blood pressure 122 mm[Hg] Piero KAPLE [facility] Encounters Encounter Date Encounter Type Care Provider Facility Start: 08-28-2023 End: 08-29-2023 ambulatory Piero HENDRICKSON Facility:[facility] Start: 08-16-2023 End: 08-17-2023 ambulatory Piero HENDRICKSON Facility:[facility] Start: 08-16-2023 End: 08-16-2023 Patient encounter procedure Piero HENDRICKSON [facility] Start: 08-16-2023 End: 08-16-2023 Well adult monitoring check done Piero HENDRICKSON [facility] Start: 06-11-2023 End: 06-12-2023 ambulatory Jonh Ann Facility:[facility] Start: 04-30-2023 End: 05-01-2023 ambulatory Piero HENDRICKSON Facility:[facility] Start: 06-08-2022 End: 06-08-2022 Patient encounter procedure Jonh Ann [facility] Start: 06-08-2022 Encounter for preprocedural laboratory examination DR ALICE HERRERA [facility] Start: 06-05-2022 End: 06-06-[address] ALICE HERRERA Facility: Start: 06-05-2022 End: 06-06-2022 Encounter for preprocedural laboratory examination DR ALICE HERRERA Facility:[facility] Start: 05-19-2022 End: 05-19-2022 Lab Drop off Jonh Ann [facility] Start: 05-18-2022 End: 05-18-2022 Patient encounter procedure Piero HENDRICKSON [facility] Start: 05-18-2022 End: 05-18-2022 Preprocedural examination done Piero HENDRICKSON [facility] Start: 04-10-2022 End: 04-10-2022 Patient encounter procedure Piero HENDRICKSON [facility] Procedures Date Procedure Procedure Detail Performing Clinician Start: 06-09-2022 Insertion of hip prosthesis Piero HENDRICKSON Comment on above: Dr. Sandeep Samuel Bilateral tubal ligation Sco aracelis KAPLE section Piero HENDRICKSON Colonoscopy Piero KAPLE laparoscopic Piero KAPLE venous blockage Piero KAPLE Immunizations Immunization Date Immunization Notes Care Provider Fa cili 09-03-2022 influenza virus vaccine, unspecified formulation Piero KAPLE [facility] 08-26-2021 influenza virus vaccine, unspecified formulation Piero KAPLE [facility] Comment on above: Result Comment: [facility] 08-22-2020 influenza virus vaccine, unspecified formulation Piero KAPLE [facility] 08-29-2019 influenza virus vaccine, unspecified formulation Piero KAPLE [facility] 08-28-2019 influenza virus vaccine, unspecified formulation Piero KAPLE [facility] 10-18-2017 influenza virus vaccine, unspecified formulation Piero KAPLE [facility] 09-15-2016 influenza virus vaccine, unspecified formulation Piero KAPLE [facility] 09-17-2015 influenza virus vaccine, unspecified formulation Piero KAPLE [facility] 09-11-2014 influenza virus vaccine, unspecified formulation Piero KAPLE [facility] 09-16-2013 influenza virus vaccine, unspecified formulation Piero KAPLE [facility] 11-04-2010 tetanus toxoid, reduced diphtheria toxoid, and acellular pertussis vaccine, adsorbed Piero KAPLE [facility] 03-06-2010 hepatitis A vaccine, adult dosage Piero KAPLE [facility] 03-06-2010 hepatitis B vaccine, pediatric or pediatric/adolescent dosage Piero KAPLE [facility] 11-07-2009 hepatitis B vaccine, pediatric or pediatric/adolescent dosage Piero KAPLE [facility] 09-21-2009 influenza virus vaccine, H1N1, live Piero HENDRICKSON [facility] 09-05-2009 hepatitis A vaccine, adult dosage Piero STEINBERGLE [facility] 09-05-2009 hepatitis B vaccine, pediatric or pediatric/adolescent dosage Piero KAPLE [facility] NEGATED: Highlighted row has not occurred!08-16-2023 influenza virus vaccine, unspecified formulation Piero HENDRICKSON [facility] NEGATED: Highlighted row has not occurred!08-16-2023 SARS-CoV-2 mRNA (tozinameran 5y-11y) vaccine Piero HENDRICKSON [facility] Payers Date Payer Category Payer Unknown [id number] [id number] [id number] 1965 Unknown [id number] [id number] 1965 Unknown [id number] 1966 Unknown [id number] 2.16.8 [id number] 1966 Unknown [id number] 2.16.8 [id number] 1958 Private Health Insurance [id number] Social History Date Type Detail Facility Start: 03-07-2021 End: 08-16-2023 Tobacco smoking status Never smoked tobacco (finding) [facility] Tobacco smoking status Never [facility] Sex Assigned At Female [facility] Functional Status Date Assessment Result Facility 08-16-2023 Functional Status N/A [facility] 05-18-2022 Functional Status N/A [facility] Evaluation + Plan note 08-16-2023 Radiology Note Date & Type Note Facility 08-16-2023 Evaluation + Plan note Future Scheduled TestsCT Abdomen/Pelvis w/o Contrast 08/16/23 [facility] Hospital Discharge instructions 08-16-2023 Note Date & Type Note Facility 08-16-2023 Hospital Discharg e instructions Patient Education 08/16/2023 08:23:19 Muscle Strain, Erim-yg-Sjuo Muscle Strain A muscle strain, or pulled [...] is not too tight. General instructions Take bede-muy-dffpvps and prescription medicines only as told by [...] provider. Document Revised: 01/26/2022 Document Reviewed: 01/26/2022 [employer] Patient Education 2022 [employer]. 08/16/2023 08:23:11 Cold Sore, Rrzs-bp-Fzsf Cold Sore A cold sore, also called [...] instructions at home: Medicines Take or apply vwyr-oaf-seapnvi and prescription medicines only as told by [...] provider. Document Revised: 08/19/2022 Document Reviewed: 08/19/2022 [employer] Patient Education 2022 [employer]. 08/16/2023 08:10:18 Flank Pain, Adult, Dnpg-pj-Zxru Flank Pain, Adult Flank pain is pain [...] Rest as told by your doctor. Take orvx-fnr-iwgvahv and prescription medicines only as told by [...] provider. Document Revised: 01/19/2022 Document Reviewed: 01/19/2022 [employer] Patient Education 2022 [employer]. Follow Up Care 04/22/2023 15:20:47 With:EMEKA JAY FAAFP, FAUSTINA Baeza, PED Address: [address] [place] [address] [place] [address]- When:Within 1 Year(s) [facility] Hospital Discharge instructions 05-18-2022 Note [...] to take more than one medicine. Take ejax-maa-pgyiqki and prescription medicines only as told by your health care provider. Where to find support Your health care provider can help you prevent hypertension and help you keep your blood pressure at a healthy level. Your local hospital or your community may also provide support services and prevention programs. The [place] [employer] offers an online support network at: http://supportnetwork.heart.org /sbho-aypvg-ylzvcapn Where to find more information Learn more about hypertension from: National Heart, Lung, and Blood [place]: www.nhlbi.nih.gov/health/health -topics/topics/hbp Centers for Disease Control and Prevention: www.cdc.gov/bloodpressure [place] [employer]: http://familydoctor.org/familyd octor/en/diseases-conditions/hi kc-hfcmo-yyjokkof.printerview.a ll.html Learn more about the DASH diet from: National Heart, Lung, and Blood [place]: www.nhlbi.nih.gov/health/health -topics/topics/dash Contact a health care provider [...] 11/22/2016 Document Revised: 03/01/2020 Document Reviewed: 07/19/2017 [employer] Patient Education 2020 [employer]. Follow Up Care 05/05/2022 13:24:35 With:Piero HENDRICKSON DO, FAAFP, FAM, PED Address: [address] [place] [address]- When:Within 1 Year(s) [facility] Evaluation + Plan note 05-09-2022 Note Date & Type Note Facility 05-09-2022 Evaluation + Plan note Diagnostic Tests PendingPAP [id number] IG Apt HPV,rfx 16/18,45 05/19/22 [facility] Evaluation + Plan note Note Date & Type Note Facility Evaluation + Plan note No data available for this section [facility] Hospital Discharge instructions Note Date & Type Note Facility Hospital Discharge instructions No data available for this section [facility] Progress note Note Date & Type Note Facility Progress note No data available for this section [facility] Summary Purpose Family History No Family History Records FoundNo Family History Records Found Advance Directives No Advanced Directives Records FoundNo Advanced Directives Records Found Additional Source Comments Care Team (unrecognized sect ion and content) Personnel Name: Piero HENDRICKSON DO, FAAFP Address: [place] [address] Personnel Name: Piero HENDRICKSON DO, FAAFP Address: [place] [address] Personnel Name: Piero HENDRICKSON DO, FAAFP Address: [place] [address] Personnel Name: Piero HENDRICKSON DO, FAAFP Address: [facility] A [address] Personnel Name: Piero HENDRICKSON DO, FAAFP Address: Address: [place] [facility] [address] INFORMATION SOURCE (unrecogn ized section and content) DATE CREATED AUTHOR 06/11/2022 [facility] DATE CREATED AUTHOR 'S ORGANIZ ATION 08/31/2023 [facility] FOR RECORDS PERTAINING TO PATIENTS WHO ARE [...] BE BASED ON THE PRIMARY CLINICAL RECORDS. [facility] [employer] [facility]. provides no warranty or guarantee of the accuracy or completeness of information in this document.
== END 2024-02-11 09:25 | disposition home or self-care (01) ==
LOC: VC 09:24
PROVIDERS: PCP Radiology Diagnostic Radiology; Visit Provider Radiology Diagnostic Radiology
DX: I80.01 Phlebitis and thrombophlebitis of superficial vessels of right lower extremity (principal)
CPT/HCPCS: 93971; G0463

== ENCOUNTER 2024-02-17 07:57 | Outpatient (OUT) | payer OTHER, SELFPAY ==
--- NOTE | 2024-02-17 08:01 | VEIN_ITS ---
[address] [address] Patient Name: KATYA CORONEL MRN: [id number] date: 1965 Sex: F Assigned Patient Location: Current Patient Location: Accession/Order Number: [id number] Exam Date: 02/17/2024 08:05 Report Date: 02/17/2024 08:50 At the request of: ODALYS MERIDA Procedure: VC INJ Foam Sclerosant WUS USABILITY SPECIALIST PROCEDURE: VC INJ Foam Sclerosant WUS USABILITY SPECIALIST, left leg COMPARISON: None. HISTORY: Pain due to varicose veins of bilateral legs I83.813 Pre-operative Diagnosis: CEAP class C3 venous insufficiency with pain, tenderness, edema and incompetent left great saphenous and varicose vein(s), chronic venous insufficiency left leg secondary to venous incompetence Post-operative Diagnosis: CEAP class C3 venous insufficiency with pain, tenderness, edema and incompetent left great saphenous and varicose vein(s), chronic venous insufficiency left leg secondary to venous incompetence Procedure Performed: 1. Ultrasound-guided microfoam chemical ablation with Varithenaregistered 2. Intraoperative ultrasound guidance Anesthesia: None Indications for Procedure: 58-year-old female who presents with a long history of lower extremity pain and swelling with large discolored varicose veins. The patient failed conservative medical therapy including medical compression stockings, exercise and analgesics. Prior procedures include intervenous laser ablation. Multiple incompetent varicosities of the left leg. Duplex scan showed reflux and enlarged diameters up to 6 mm. The patient underwent informed consent including management options where the complications of infection, bleeding, pain, and skin injury were discussed. Particular attention was spent discussing thrombus extension and deep vein thrombosis as well as the possibility of pulmonary embolus and treatment with oral or injectable blood thinners. Procedure: The patient walked to the procedure room. All applicable staff donned appropriate apparel. A procedure timeout was performed to confirm correct patient, correct extremity, correct procedure, and correct room set-up including presence of all applicable supplies, devices, and drugs. A duplex ultrasound, performed by myself confirmed the location and incompetence of branch saphenous varicosities and their course was marked on the skin together with the dilated tributaries. The extent of treatment of the vein and the associated varicosities was determined through ultrasound mapping. The skin was prepped and then punctured with a butterfly needle and advanced under ultrasound guidance. The Varithenaregistered canister was activated and the canister was primed and purged as required in the instructions for use. Varithenaregistered was drawn into a sterile syringe. The following injections were made: 7 cc injected into a 5 mm varicose vein distal left medial lower leg 8 cc injected into a 6 mm varicose vein distal left anterior thigh Varithenaregistered was slowly administered at 0.5-1.0 cc/second with close observation by ultrasound of its course in the vessels. Total volume utilized was: 15cc. Following administration of Varithenaregistered the leg was elevated and the patient was asked to repeatedly dorsiflex the ankle to limit flow of Varithenaregistered into perforating veins. Once appropriate spasm had been confirmed in the treated veins, the vascular catheter was removed from the leg and light pressure was applied over the puncture site for hemostasis. The common femoral and deep superficial veins were then evaluated for flow and compressibility prior to dressing placement. The lower extremity was kept elevated at 45 degrees above the horizontal and cording material was applied over the saphenous segments and tributaries to allow for eccentric compression over the target vessels including the targeted saphenous vein(s). A multilayer dressing was applied consisting of foam pads, coban and thigh-high 20-30 mm Hg compression elastic support hose were placed on the patient. The leg was lowered only after compression had been applied and the patient was immediately ambulatory. The patient ambulated 10 minutes under supervision and was without apparent concerns at time of release. Post-care instructions include advising patient to keep post-treatment bandages in place and dry for 48 hours, avoid extended periods of inactivity, avoid heavy exercise for one week, wear compression stockings on the treated leg continuously for two weeks, to walk daily for 10 minutes over the next month. The patient was instructed to take an anti-inflammatory medicine as needed and to follow up for color duplex scan of the Saphenous veins, the treated branch saphenous varicosities, the adjacent deep veins, and additional treatment within 7 days. PERSONNEL: Tanner Jacome RN Electronically authenticated by: ODALYS MERIDA Date: 02/17/2024 08:50
--- OUTSIDE RECORDS SUMMARY | 2024-02-17 08:15 | XMS_ITS | CCD ---
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 Name Role Phone Piero HENDRICKSON Primary Care Physician [phone] SHARON, DR JENKINS Attending Unavailable SHARON, DR [...] sources) Erythromycin; Translations: [erythromycin] Drug Allergy unknown [facility] (7 sources) Ramipril; Translations: [ramipril] Drug Allergy angioedema [facility] (7 sources) Sulfonamides (Antibiotic); Translations: [sulfa drugs] Drug allergy unknown [facility] (1 source) Angiotensin Converting Enzyme (Ben) Inhibitors Drug allergy (disorder) 11-22-2014 [facility] (1 source) Erythromycin Drug Allergy [facility] (1 source) Sulfonamides (Antibiotic) Drug allergy (disorder) 11-22-2014 [facility] Medications Current Medications Medication [...] BID, # 180 tab(s), Refills(s) 3, Pharmacy: [facility], 154, cm, 12/15/21 15:27:00 EST, Height/Length Dosing, 74.4, kg, 12/15/21 15:27:00 EST, Weight Dosing Start Date: 02/27/22 Status: Ordered cyclobenzaprine hydrochloride 10 mg oral tablet (1 source) Muscle Relaxant Start: 02-25-2022 take 1 tablet by mouth at bedtime cyclobenzaprine 10 mg Tab 10 mg = 1 tab(s), Oral, Bedtime, # 30 tab(s), Refills(s) 1, Pharmacy: [facility]pharmacy #[id number], 154, cm, 12/15/21 15:27:00 EST, [...] Spasm, # 50 tab(s), Refills(s) 1, Pharmacy: [facility]/pharmacy #[id number], 154, cm, 08/16/23 7:47:00 EDT, [...] BID, # 30 tab(s), Refills(s) 3, Pharmacy: [facility]/pharmacy #[id number], 154, cm, 08/16/23 7:47:00 EDT, [...] Oral contrast amount in ml's: 0 Normal [facility] Consent for Treatmenton Consent for Treatment [id number] 31 [id number] #1.00TIFF Normal [facility] Insurance Correspondenceon 0 08-18-2023 Insurance Correspondence [id number]#1.00CD:127 Normal [facility] Ambulatory Visit Summaryon 0 08-16-2023 Ambulatory Visit [...] PED When: In 1 year Where: [address], [place] [address]- You Need to Complete the Following CT Abdomen/Pelvis w/o Contrast, 08/16/23, Routine, Order for future visit, Transport Mode: Ambulatory, Reason: Pain, No, No, Left flank pain, pp_set_radiology_sub specialty, [facility] [place] Medications What How Much When Why Instructions New valacyclovir (Valtrex 1 g Tab) 1 Tablets By Mouth 2 times a day Recurrent cold sores Refills: 3 Pickup at [id number] Unchanged carvedilol (Coreg 12.5 mg Tab) 1 Tablets By Mouth 2 times a day Pickup at [facility] Pharmacy Information [facility]: [address] [facility] [address] [place], [place] [id number] [phone] [id number]: [address] [place], [place] [id number] [phone] Medications and Immunizations Administered Not Given influenza [...] as told by your doctor. ? Take kpfj-euw-rcpinto and prescription medicines only as told by [...] provider. Document Revised: 01/19/2022 Document Reviewed: 01/19/2022 [employer] Patient Education ? 2022 uiu. Darin [facility] Family Medicine Office/Clini c Noteon 08-16-2023 [...] Spasm, # 50 tab(s), Refills(s) 1, Pharmacy: [facility]/pharmacy #[id number], 154, cm, 08/16/23 7:47:00 EDT, Height/Length Dosing, 77, kg, 08/16/23 7:46:00 EDT, Weight Dosing CT Abdomen/Pelvis w/o Contrast 7. 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 Normal [facility] Comment on above: Result Comment: Elec tronically [...] at home: Medicines ? Take or apply cqkh-lvj-pueegip and prescription medicines only as told by [...] provider. Document Revised: 08/19/2022 Document Reviewed: 08/19/2022 [employer] Patient Education ? 2022 uiu. Orthopedics Muscle Strain A muscle strain, o (more content not included)... Normal [facility] [place] Mamm Screen w/CAD if perf and [...] very important to your health. The current [employer] and National Comprehensive Cancer [...] Angelito Vidal M.D. Transcribed by: CONSTANZA Technologist: [facility] Assessment: BI-RADS Category 2-Benign finding Recommendation: Normal interval follow-up Normal [facility] Consent for Treatmenton 05-23 Consent for Treatment [id number] 30 [id number] #1.00CD:127 Normal [facility] Physician Orderon 06-07-2023 Physician Order [id number] #1.00CD:127 Normal [facility] Auto Diffon 04-30-2023 Basophils/100 WBC (Bld) 0.9 % Normal 0.0-2.0 [facility] Comment on above: Order Comment: Order Added by Giancarlo Expert. Performed By: #### 2 387590, 2579865, 1440691, 3173497, 5539976, [id number] #### [facility] [address] [place] [address] Basophils/Leukocytes Auto (Bld) [Pure # fraction] 0.0 E9/L Normal 0.0-0.2 [facility] Comment on above: Order Comment: Order Added by Discern Expert. Performed By: #### 2 842231, 8335274, 4681514, 4775507, 7774906, 96828314 #### [facility] [address] [place] [address] 03557 Eosinophils/100 WBC (Bld) 2.7 % Normal 0.0-8.0 [facility] Comment on above: Order Comment: Order Added by Giancarlo Expert. Performed By: #### 2 925425, 7491559, 0400999, 9002146, 2228972, 47233090 #### [facility] [address] [place] [address] 04259 Eosinophils/Leukocyte s Auto (Bld) [Pure # fraction] 0.1 E9/L Normal 0.0-0.5 [facility] Comment on above: Order Comment: Order Added by Giancarlo Expert. Performed By: #### 2 563158, 9392021, 0140469, 5600196, 6900485, 17352449 #### [facility] [address] [place] [address] 53393 Lymphocytes/100 WBC (Bld) 31.3 % Normal 14.0-50.0 [facility] Comment on above: Order Comment: Order Added by Giancarlo Expert. Performed By: #### 2 340492, 5607477, 4180872, 6042137, 2693200, 37715045 #### [facility] [address] [place] [address] 77945 Lymphocytes/Leukocyte s Auto (Bld) [Pure # fraction] 1.2 E9/L Normal 1.0-4.0 [facility] Comment on above: Order Comment: Order Added by Discern Expert. Performed By: #### 2 037875, 7937638, 3171724, 0535974, 2904894, 88001693 #### [facility] [address] [place] [address] 90383 Monocytes/100 WBC (Bld) 11.7 % Normal 4.0-14.0 [facility] Comment on above: Order Comment: Order Added by Discern Expert. Performed By: #### 2 917209, 3513248, 7994932, 5792394, 3290438, 52977296 #### [facility] [address] [place] [address] Monocytes/Leukocytes Auto (Bld) [Pure # fraction] 0.5 E9/L Normal 0.2-1.0 [facility] Comment on above: Order Comment: Order Added by Giancarlo Expert. Performed By: #### 2 083910, 2389026, 1866735, 7975551, 9828753, 03307403 #### [facility] [address] [place] [address] 82401 Neutrophils/100 WBC (Bld) 53.4 % Normal 36.0-75.0 [facility] Comment on above: Order Comment: Order Added by Discern Expert. Performed By: #### 2 677760, 4321272, 9833475, 4694474, 8135436, 56123624 #### [facility] [address] [place] [address] 13923 Neutrophils/Leukocyte s Auto (Bld) [Pure # fraction] 2.1 E9/L Normal 2.0-7.5 [facility] Comment on above: Order Comment: Order Added by Discern Expert. Performed By: #### 2 484440, 3494790, 4817822, 9565370, 2344728, 18908262 #### [facility] [address] [place] [address] BMPon 04-30-2023 Anion gap [Moles/Vol] 10 mmol/L Normal 6-16 [facility] Comment on above: Performed By: #### 2 600111, 7712801, 2648864, 6788095, 8552775, 38205885 #### [facility] [address] [place] [address] Calcium [Mass/Vol] 8.9 mg/dL Normal 8.9-11.1 [facility] Comment on above: Performed By: #### 2 396358, 2302525, 0345067, 4945753, 5193388, 48208362 #### [facility] [address] [place] [address] Chloride [Moles/Vol] 107 mmol/L Normal 101-111 [facility] Comment on above: Performed By: #### 2 132207, 3923091, 1080610, 3947009, 5161920, 50485401 #### [facility] [address] [place] [address] CO2 [Moles/Vol] 26 mmol/L Normal 21-31 [facility] Comment on above: Performed By: #### 2 069247, 9748388, 0588267, 1438523, 6752597, 25882715 #### [facility] [address] [place] [address] Creatinine [Mass/Vol] 0.7 mg/dL Normal 0.5-1.3 [facility] Comment on above: Performed By: #### 2 856352, 4598956, 5442895, 2708245, 1262352, 92721077 #### [facility] [address] [place] [address] Glucose [Mass/Vol] 92 mg/dL Normal 55-199 [facility] Comment on above: Result Comment: If t his glucose result represents a fasting glucose, interpretation should refer to the following reference range: 55-99 mg/dL Performed By: #### 2 255946, 8947685, 2250624, 1491468, 1169350, 91804013 #### [facility] [address] [place] [address] Potassium [Moles/Vol] 3.9 mmol/L Normal 3.5-5.3 [facility] Comment on above: Performed By: #### 2 847858, 0597944, 5453381, 0446584, 1318008, 03299547 #### [facility] [address] [place] [address] Sodium [Moles/Vol] 139 mmol/L Normal 135-145 [facility] Comment on above: Performed By: #### 2 283486, 5882610, 6391053, 6877063, 9903655, 65629230 #### [facility] [address] [place] [address] Urea nitrogen [Mass/Vol] 19 mg/dL Normal 5-21 [facility] Comment on above: Performed By: #### 2 457658, 3013396, 2313164, 0496433, 9287510, 46568646 #### [facility] [address] [place] [address] Urea nitrogen/Creatinine [Mass ratio] 27 No Units High 10-20 [facility] Comment on above: Performed By: #### 2 090482, 1228478, 3954895, 0072419, 5294312, 36012096 #### [facility] [address] [place] [address] CBC w/ Auto Diffon 3 Erythrocyte distribution width (RBC) [Ratio] 12.3 % Normal 10.9-14.2 [facility] Comment on above: Performed By: #### 2 720331, 3981251, 2392818, 7367317, 4713556, 62659956 #### [facility] [address] [place] [address] Hematocrit (Bld) [Volume fraction] 35.9 % Normal 34.0-46.0 [facility] Comment on above: Performed By: #### 2 550074, 1038883, 4197773, 3523016, 2603852, 56978325 #### [facility] [address] [place] [address] Hemoglobin (Bld) [Mass/Vol] 12.1 g/dL Normal 12.0-16.0 [facility] Comment on above: Performed By: #### 2 360787, 9161260, 7008225, 2798730, 6667060, 27544959 #### [facility] [address] [place] [address] MCH (RBC) [Entitic mass] 32.5 pg Normal 27.0-34.0 [facility] Comment on above: Performed By: #### 2 144484, 7444167, 2896110, 8396929, 9083907, 23912029 #### [facility] [address] [place] [address] 99121 MCHC (RBC) [Mass/Vol] 33.8 g/dL Normal 31.4-36.0 [facility] Comment on above: Performed By: #### 2 372758, 6176004, 3114125, 4863524, 9112965, 05521016 #### [facility] [address] [place], [place] [address] MCV (RBC) [Entitic vol] 96.1 fL Normal 80.0-100.0 [facility] Comment on above: Performed By: #### 2 430536, 2404729, 1576299, 2090836, 4503853, 61577030 #### [facility] [address] [place] [address]139 Platelet mean volume (Bld) [Entitic vol] 8.9 fL Normal 6.4-10.8 [facility] Comment on above: Performed By: #### 2 465415, 7324235, 9825282, 3648854, 2381614, 33845496 #### [facility] [address] [place] [address] 87238 Platelets (Bld) [#/Vol] 186.0 E9/L Normal 150.0-500.0 [facility] Comment on above: Performed By: #### 2 010966, 5842944, 0773506, 9460256, 7014138, 50230401 #### [facility] [address] [place] [address] 12140 RBC (Bld) [#/Vol] 3.7 E12/L Low 4.3-5.9 [facility] Comment on above: Performed By: #### 2 084029, 8690635, 1175289, 6578587, 1127504, 41983294 #### [facility] [address] [place] [address] WBC corrected for nucl RBC Auto (Bld) [#/Vol] 3.9 E9/L Low 4.0-11.0 [facility] Comment on above: Performed By: #### 2 875942, 3803614, 4782675, 7076999, 9624326, 96874770 #### [facility] [address] [place] [address] Consent for Treatmenton Consent for Treatment [id number] 30 [id number] #1.00CD:127 Normal [facility] Hep Func Panelon 04-30-2023 Albumin [Mass/Vol] 3.7 g/dL Normal 3.3-5.0 [facility] Comment on above: Performed By: #### 2 973055, 3854921, 6033054, 9144601, 9616175, 41168067 #### [facility] [address] [place] [address] 62151 Albumin/Globulin (S) [Mass conc ratio] 1.1 Normal 1.1-2.2 [facility] Comment on above: Performed By: #### 2 413941, 8244740, 0175594, 7617872, 4779244, 41626538 #### [facility] [address] [place] [address] ALP [Catalytic activity/Vol] 78 Int._Unit/L Normal 21-98 [facility] Comment on above: Performed By: #### 2 106241, 6248608, 4730797, 8920683, 4010723, 18368854 #### [facility] [address] [place] [address] ALT No additional P-5'-P [Catalytic activity/Vol] 20 Int._Unit/L Normal 6-46 [facility] Comment on above: Performed By: #### 2 823308, 3819331, 2830467, 5563848, 1403204, 85951367 #### [facility] [address] [place] [address] AST [Catalytic activity/Vol] 23 Int._Unit/L Normal 5-43 [facility] Comment on above: Performed By: #### 2 704146, 1335698, 8834737, 2827928, 9361381, 00065022 #### [facility] [address] [place] [address] Bilirubin [Mass/Vol] 1.0 mg/dL Normal 0.0-1.1 [facility] Comment on above: Performed By: #### 2 288243, 6095304, 9656848, 6880273, 0408356, 49272927 #### [facility] [address] [place] [address] Bilirubin.direct [Mass/Vol] 0.1 mg/dL Normal 0.1-0.4 [facility] Comment on above: Performed By: #### 2 285087, 0486049, 2906199, 4807895, 6841654, 32690065 #### [facility] [address] [place] [address] Bilirubin.indirect [Mass or moles/Vol] 0.9 mg/dL Normal 0.1-0.9 [facility] Comment on above: Performed By: #### 2 814424, 4825109, 6846434, 2824024, 6242245, 04945614 #### [facility] [address] [address] Globulin (S) [Mass/Vol] 3.5 g/dL Normal 1.4-4.0 [facility] Comment on above: Performed By: #### 2 888048, 6463969, 9497148, 1566436, 4651919, 25975181 #### [facility] [address] [place] [address] Protein [Mass/Vol] 7.2 g/dL Normal 6.0-7.8 [facility] Comment on above: Performed By: #### 2 684352, 2062025, 3472268, 4503074, 1878247, 32129260 #### [facility] [address] [place] [address] Lipid Panelon 04-30-2023 Cholesterol [Mass/Vol] 162 mg/dL Normal 120-200 [facility] Comment on above: Performed By: #### 2 914024, 0377518, 0445942, 0916847, 8037592, 63022267 #### [facility] [address] [place] [address] Cholesterol in HDL [Mass/Vol] 62 mg/dL Invalid Interpretation Code [facility] Comment on above: Result Comment: HDL > or equal to 60 mg/dL: Low cardiovascular risk HDL < 40 mg/dL : High cardiovascular risk Performed By: #### 2 920550, 8133797, 9923812, 4969288, 3710642, 76463022 #### [facility] [address] [place] [address] Cholesterol in LDL [Mass/Vol] 96 mg/dL Normal <=129 [facility] Comment on above: Performed By: #### 2 187221, 9864661, 5817102, 4811718, 5499276, 19769762 #### [facility] [address] [place] [address] Cholesterol in VLDL [Mass/Vol] 8 mg/dL Normal 7-40 [facility] Comment on above: Performed By: #### 2 259811, 6960801, 9798663, 2737184, 3594679, 09814811 #### [facility] [address] [place] [address] Triglyceride [Mass/Vol] 40 mg/dL Normal <=149 [facility] Comment on above: Performed By: #### 2 192260, 0795811, 9703985, 1743751, 5666637, 60424770 #### [facility] [address] [place] [address] eGFRon 04-30-2023 GFR/1.73 sq M.predicted among non-blacks MDRD (S/P/Bld) [Vol rate/Area] 101 mL/min/1.73 m2 Normal >=59 [facility] Comment on above: Order Comment: Order added by Discern Expert. Result Comment: Notary Public felipa kidney disease could be indicated at eGFR's of less than 60 mL/min/1.73m2. Kidney failure is indicated at less than 15 mL/min/1.73m2. Performed By: #### 2 970880, 5588747, 0269014, 4042407, 5296965, 20832046 #### [facility] [address] [place] [address] Covid-19 PCR (CVDTB)on 05-22 SARS-CoV-2 (COVID-19) RNA AURA+probe Ql (Unsp spec) Not detected Normal NOT DETECTED [facility] Comment on above: Result Comment: This test is not yet approved or cleared by the [place] FDA. When there are no FDA-approved or cleared tests available, and other criteria are met, FDA can make tests available under an emergency access mechanism called an Emergency Use Authorization (EUA). The EUA for this test is supported by the Dock Coordinator of Health and Human Service's (HHS's) declaration [...] SARS-CoV-2. Performed By: #### C VDTBH #### [facility] [address] [address] [address] Tomas Chauhan CHEMISTRYOrdered By: SYSTEM SYSTEM [...] 34.5 g/dL Normal 31.4 - 36.0 gm/dL [facility]eAuto[facility] MCV (RBC) [Entitic vol] 99.2 fL [...] 4.5 E9/L Normal 4.0 - 11.0 E9/L [facility] Vital Signs Date Time Vital Sign Value Performing Clinician Faci lity 08-16-2023 07:39-0400 Blood Pressure Location Piero MARYANERICA [facility] 08-16-2023 07:39-0400 Body temperature 98.42 [degF] [facility]o [facility] 08-16-2023 07:39-0400 Diastolic blood pressure 82 mm[Hg] Piero MARYANLE [facility] 08-16-2023 07:39-0400 Heart rate 76 /min Piero MARYANLE [facility] 08-16-2023 07:39-0400 Respiratory rate 16 /min Piero MARYANLE [facility] 08-16-2023 07:39-0400 SaO2% (BldA) [Mass fraction] 99 % Piero STEINBERGERICA [facility] 08-16-2023 07:39-0400 Systolic blood pressure 120 mm[Hg] Piero HENDRICKSON [facility] 05-18-2022 10:04-0400 Blood Pressure Location Piero KAPLE [facility] 05-18-2022 10:04-0400 Body temperature 97.88 [degF] Piero KAPLE [facility] 05-18-2022 10:04-0400 Diastolic blood pressure 78 mm[Hg] Piero KAPLE [facility] 05-18-2022 10:04-0400 Heart rate 84 /min Piero KAPLE [facility] 05-18-2022 10:04-0400 Respiratory rate 16 /min Piero KAPLE [facility] 05-18-2022 10:04-0400 SaO2% (BldA) [Mass fraction] 98 % Piero KAPLE [facility] 05-18-2022 10:04-0400 Systolic blood pressure 122 mm[Hg] Piero KAPLE [facility] Encounters Encounter Date Encounter Type Care Provider Facility Start: 08-28-2023 End: 08-29-2023 ambulatory Piero HENDRICKSON [facility] Start: 08-16-2023 End: 08-17-2023 ambulatory Piero HENDRICKSON Facility:[facility] Start: 08-16-2023 End: 08-16-2023 Patient encounter procedure Piero HENDRICKSON [facility] Start: 08-16-2023 End: 08-16-2023 Well adult monitoring check done Piero HENDRICKSON [facility] Start: 06-11-2023 End: 06-12-2023 ambulatory Jonh Ann [facility] Start: 04-30-2023 End: 05-01-2023 ambulatory Piero HENDRICKSON [facility] Start: 06-08-2022 End: 06-08-2022 Patient encounter procedure Jonh Ann [facility] Start: 06-08-2022 Encounter for preprocedural laboratory examination DR ALICE HERRERA [facility] Start: 06-05-2022 End: 06-06-[address] ALICE HERRERA Facility: Start: 06-05-2022 End: 06-06-2022 Encounter for preprocedural laboratory examination DR ALICE HERRERA Facility:[facility] Start: 05-19-2022 End: 05-19-2022 Lab Drop off Jonh Ann [facility] Start: 05-18-2022 End: 05-18-2022 Patient encounter procedure Piero HENDRICKSON [facility] Start: 05-18-2022 End: 05-18-2022 Preprocedural examination done Piero HENDRICKSON [facility] Start: 04-10-2022 End: 04-10-2022 Patient encounter procedure Piero HENDRICKSON [facility] Procedures Date Procedure Procedure Detail Performing Clinician Start: 06-09-2022 Insertion of hip prosthesis Piero HENDRCIKSON Comment on above: Dr. Sandeep Samuel Bilateral tubal ligation Sco aracelis KAPLE section Piero HENDRICKSON Colonoscopy Piero KAPLE laparoscopic Piero KAPLE venous blockage Piero KAPLE Immunizations Immunization Date Immunization Notes Care Provider Fa cili 09-03-2022 influenza virus vaccine, unspecified formulation Piero KAPLE [facility] 08-26-2021 influenza virus vaccine, unspecified formulation Piero KAPLE [facility] Comment on above: Result Comment: [facility] 08-22-2020 influenza virus vaccine, unspecified formulation Piero KAPLE [facility] 08-29-2019 influenza virus vaccine, unspecified formulation Piero KAPLE [facility] 08-28-2019 influenza virus vaccine, unspecified formulation Piero KAPLE [facility] 10-18-2017 influenza virus vaccine, unspecified formulation Piero KAPLE [facility] 09-15-2016 influenza virus vaccine, unspecified formulation Piero KAPLE [facility] 09-17-2015 influenza virus vaccine, unspecified formulation Piero KAPLE [facility] 09-11-2014 influenza virus vaccine, unspecified formulation Piero KAPLE [facility] 09-16-2013 influenza virus vaccine, unspecified formulation Piero KAPLE [facility] 11-04-2010 tetanus toxoid, reduced diphtheria toxoid, and acellular pertussis vaccine, adsorbed Piero KAPLE [facility] 03-06-2010 hepatitis A vaccine, adult dosage Piero KAPLE [facility] 03-06-2010 hepatitis B vaccine, pediatric or pediatric/adolescent dosage Piero KAPLE [facility] 11-07-2009 hepatitis B vaccine, pediatric or pediatric/adolescent dosage Piero KAPLE [facility] 09-21-2009 influenza virus vaccine, H1N1, live Piero HENDRICKSON [facility] 09-05-2009 hepatitis A vaccine, adult dosage Piero STEINBERGLE [facility] 09-05-2009 hepatitis B vaccine, pediatric or pediatric/adolescent dosage Piero KAPLE [facility] NEGATED: Highlighted row has not occurred!08-16-2023 influenza virus vaccine, unspecified formulation Piero HENDRICKSON [facility] NEGATED: Highlighted row has not occurred!08-16-2023 SARS-CoV-2 mRNA (tozinameran 5y-11y) vaccine Peiro HENDRICKSON [facility] Payers Date Payer Category Payer Unknown [id number] 2.16.84 [id number] 1965 Unknown [id number] 2.16.8 [id number] 1965 Unknown [id number] 1965 Unknown [id number] 1965 Unknown [id number] 1958 Private Health Insurance [id number] Social History Date Type Detail Facility Start: 03-07-2021 End: 08-16-2023 Tobacco smoking status Never smoked tobacco (finding) [facility] Tobacco smoking status Never [facility] Sex Assigned At Female [facility] Functional Status Date Assessment Result Facility 08-16-2023 Functional Status N/A [facility] 05-18-2022 Functional Status N/A [facility] Evaluation + Plan note 08-16-2023 Radiology Note Date & Type Note Facility 08-16-2023 Evaluation + Plan note Future Scheduled TestsCT Abdomen/Pelvis w/o Contrast 08/16/23 [facility] Hospital Discharge instructions 08-16-2023 Note Date & Type Note Facility 08-16-2023 Hospital Discharg e instructions Patient Education 08/16/2023 08:23:19 Muscle Strain, Uxwt-vj-Plqn Muscle Strain A muscle strain, or pulled [...] is not too tight. General instructions Take oqup-ubc-rcpgxzq and prescription medicines only as told by [...] provider. Document Revised: 01/26/2022 Document Reviewed: 01/26/2022 [employer] Patient Education 2022 uiu. 08/16/2023 08:23:11 Cold Sore, Ages-hv-Smfg Cold Sore A cold sore, also called [...] instructions at home: Medicines Take or apply fgxj-yjf-oqvrewo and prescription medicines only as told by [...] provider. Document Revised: 08/19/2022 Document Reviewed: 08/19/2022 [employer] Patient Education 2022 uiu. 08/16/2023 08:10:18 Flank Pain, Adult, Sbvv-we-Bcmt Flank Pain, Adult Flank pain is pain [...] Rest as told by your doctor. Take ifzy-nxp-euzemhq and prescription medicines only as told by [...] provider. Document Revised: 01/19/2022 Document Reviewed: 01/19/2022 [employer] Patient Education 2022 uiu. Follow Up Care 04/22/2023 15:20:47 With:EMEKA JAY FAAFP, FAUSTINA Baeza, PED Address: [address] [place] [address] [place] [address]- When:Within 1 Year(s) [facility] Hospital Discharge instructions 05-18-2022 [...] to take more than one medicine. Take tpul-web-btbirkh and prescription medicines only as told by your health care provider. Where to find support Your health care provider can help you prevent hypertension and help you keep your blood pressure at a healthy level. Your local hospital or your community may also provide support services and prevention programs. The [employer] offers an online support network at: http://supportnetwork.heart.org /sfpx-txsno-wmnzxype Where to find more information Learn more about hypertension from: National Heart, Lung, and Blood [place]: www.nhlbi.nih.gov/health/health -topics/topics/hbp Centers for Disease Control and Prevention: www.cdc.gov/bloodpressure [employer]: http://familydoctor.org/familyd octor/en/diseases-conditions/hi bv-kdmbq-xjmagpdw.printerview.a ll.html Learn more about the DASH diet from: National Heart, Lung, and Blood [place]: www.nhlbi.nih.gov/health/health -topics/topics/dash Contact a health care provider [...] 11/22/2016 Document Revised: 03/01/2020 Document Reviewed: 07/19/2017 [employer] Patient Education 2020 uiu. Follow Up Care 05/05/2022 13:24:35 With:Piero HENDRICKSON DO, FAAFP, FAM, PED Address: [address] [place] [address]- When:Within 1 Year(s) [facility] Evaluation + Plan note 05-09-2022 Note Date & Type Note Facility 05-09-2022 Evaluation + Plan note Diagnostic Tests PendingPAP 213283 IG Apt HPV,rfx 16/18,45 05/19/22 [facility] Evaluation + Plan note Note Date & Type Note Facility Evaluation + Plan note No data available for this section [facility] Hospital Discharge instructions Note Date & Type Note Facility Hospital Discharge instructions No data available for this section [facility] Progress note Note Date & Type Note Facility Progress note No data available for this section [facility] Summary Purpose Family History No Family History Records FoundNo Family History Records Found Advance Directives No Advanced Directives Records FoundNo Advanced Directives Records Found Additional Source Comments Care Team (unrecognized sect ion and content) Personnel Name: Piero HENDRICKSON DO, FAAFP Address: [place] [address] Personnel Name: Piero HENDRICKSON DO, FAAFP Address: [place] [address] Personnel Name: Piero HENDRICKSON DO, FAAFP Address: [place] A [address] Personnel Name: Piero HENDRICKSON DO, FAAFP Address: [facility] A [address] Personnel Name: Piero HENDRICKSON DO, FAAFP Address: Address: [place] A [address] INFORMATION SOURCE (unrecogn ized section and content) DATE CREATED AUTHOR 06/11/2022 [facility] DATE CREATED AUTHOR 'S ORGANIZ ATION 08/31/2023 [facility] FOR RECORDS PERTAINING TO PATIENTS WHO [...] BE BASED ON THE PRIMARY CLINICAL RECORDS. [facility]. provides no warranty or guarantee of the accuracy or completeness of information in this document.
== END 2024-02-17 07:58 | disposition home or self-care (01) ==
LOC: VC 07:57
PROVIDERS: PCP Radiology Diagnostic Radiology; Visit Provider Radiology Diagnostic Radiology
DX: I83.813 Varicose veins of bilateral lower extremities with pain (principal)
CPT/HCPCS: 36466

== ENCOUNTER 2024-02-22 07:51 | Outpatient (OUT) | payer OTHER, SELFPAY ==
--- NOTE | 2024-02-22 07:53 | VEIN_ITS ---
Patient Name: KATYA CORONEL MR#: [id number] : 1965 Exam Date: 02/22/2024 Ordering Doctor: DR ODALYS MERIDA M.D. RADIOLOGY REPORT PROCEDURE: [facility] EST [facility] - OFFICE VISIT FOLLOW UP COMPARISON: [facility], [facility]. PROGRESS NOTES: The patient reports improvement in leg symptoms. There has been interval reduction in varicosities. The patient has followed our recommendations to walk 20-30 minutes once or twice per day since the procedure. Physical exam demonstrates decrease in varicosities of the leg. Persistent varicosities are identified along the legs bilaterally. Review of the ultrasound performed the same day demonstrates occlusive thrombus extending throughout the treated vein(s), see separate report, consistent with a successful ablation. No thrombus extending into or beyond the saphenofemoral junction. The patient expressed a desire to proceed with treatment of remaining incompetent varicosities. The patient was informed that treatment was a process and would require several procedures/sessions. [facility] 1. Successful ablation of the left leg treated branch saphenous vein(s). 2. Persistent bilateral lower extremity veins and lower extremity symptoms. PLAN: Microfoam chemical ablation of right leg incompetent branch saphenous varicosities. Nurse notes, history and physical were reviewed and confirmed, see attached forms. The nurse was present throughout the physical exam and consultation Dictated by: Marlo Gomez M.D. on 02/22/2024 at 09:09 Approved by: Marlo Gomez M.D. on 02/22/2024 at 09:10
--- NOTE | 2024-02-22 07:54 | VEIN_ITS ---
Patient Name: KATYA CORONEL MR#: [id number] : 1965 Exam Date: 02/22/2024 Ordering Doctor: DR ODALYS MERIDA M.D. RADIOLOGY REPORT PROCEDURE: VC EXT VENOUS LT LIMITED COMPARISON: None. INDICATIONS: Phlebitis of superficial vein of lt lower extremity I80.02 TECHNIQUE: Lower extremity womack scale and Duplex Doppler evaluation of the deep venous system from the inguinal ligament through the calf veins. FINDINGS: REGION: Left lower extremity. THROMBI: Negative for DVT. Varithena induced thrombus visualized dist/med calf and dist/med thigh. COMPRESSIBILITY: Non-compressible segments corresponding to thrombus FLOW: Areas of no flow corresponding to thrombus OTHER: Multiple varicose veins remain largest measures 4.3mm with prox/med calf with 1.4s reflux. CONCLUSION: 1. Successful post ablation occlusion of left leg treated branch saphenous varicosities. Dictated by: Marlo Gomez M.D. on 02/22/2024 at 09:04 Approved by: Marlo Gomez M.D. on 02/22/2024 at 09:09
--- OUTSIDE RECORDS SUMMARY | 2024-02-22 07:54 | XMS_ITS | CCD ---
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 Name Role Phone Piero HENDRICKSON Primary Care Physician SHARON, DR JENKINS Attending Unavailable SHARON, DR [...] sources) Erythromycin; Translations: [erythromycin] Drug Allergy unknown [facility] (7 sources) Ramipril; Translations: [ramipril] Drug Allergy angioedema [facility] (7 sources) Sulfonamides (Antibiotic); Translations: [sulfa drugs] Drug allergy unknown [facility] (1 source) Angiotensin Converting Enzyme (Ben) Inhibitors Drug allergy (disorder) 11-22-2014 [facility] (1 source) Erythromycin Drug Allergy [facility] (1 source) Sulfonamides (Antibiotic) Drug allergy (disorder) 11-22-2014 [facility] Medications Current Medications Medication Drug Class(es) [...] BID, # 180 tab(s), Refills(s) 3, Pharmacy: [facility], 154, cm, 12/15/21 15:27:00 EST, Height/Length Dosing, 74.4, kg, 12/15/21 15:27:00 EST, Weight Dosing Start Date: 02/27/22 Status: Ordered cyclobenzaprine hydrochloride 10 mg oral tablet (1 source) Muscle Relaxant Start: 02-25-2022 take 1 tablet by mouth at bedtime cyclobenzaprine 10 mg Tab 10 mg = 1 tab(s), Oral, Bedtime, # 30 tab(s), Refills(s) 1, Pharmacy: [facility]/pharmacy #[id number], 154, cm, 12/15/21 15:27:00 EST, [...] Spasm, # 50 tab(s), Refills(s) 1, Pharmacy: [facility]/pharmacy #[id number], 154, cm, 08/16/23 7:47:00 EDT, [...] BID, # 30 tab(s), Refills(s) 3, Pharmacy: [facility]/pharmacy #[id number], 154, cm, 08/16/23 7:47:00 EDT, [...] Oral contrast amount in ml's: 0 Normal [facility] Consent for Treatmenton Consent for Treatment [id number] 31 [id number] #1.00TIFF Normal [facility] Insurance Correspondenceon 0 08-18-2023 Insurance Correspondence [id number]#1.00CD:127 Normal [facility] Ambulatory Visit Summaryon 0 08-16-2023 Ambulatory [...] PED When: In 1 year Where: [address], [place] [address]- You Need to Complete the Following CT Abdomen/Pelvis w/o Contrast, 08/16/23, Routine, Order for future visit, Transport Mode: Ambulatory, Reason: Pain, No, No, Left flank pain, pp_set_radiology_sub specialty, [facility] Medications What How Much When Why Instructions New valacyclovir (Valtrex 1 g Tab) 1 Tablets By Mouth 2 times a day Recurrent cold sores Refills: 3 Pickup at [id number] Unchanged carvedilol (Coreg 12.5 mg Tab) 1 Tablets By Mouth 2 times a day Pickup at [facility] Pharmacy Information [facility]: [address] [facility] [address] [place] [id number] [phone] [id number]: [address] [place], [place] [id number] [phone] Medications and Immunizations Administered Not Given influenza [...] as told by your doctor. ? Take qmtz-afe-rkcyggt and prescription medicines only as told by [...] provider. Document Revised: 01/19/2022 Document Reviewed: 01/19/2022 [employer] Patient Education ? 2022 [employer]. Darin Mijares R [facility] Shock Trauma [...] Spasm, # 50 tab(s), Refills(s) 1, Pharmacy: [facility]/pharmacy #[id number], 154, cm, 08/16/23 7:47:00 EDT, Height/Length Dosing, 77, kg, 08/16/23 7:46:00 EDT, Weight Dosing CT Abdomen/Pelvis w/o Contrast 7. 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 Normal [facility] Comment on above: Result Comment: Elec [...] at home: Medicines ? Take or apply wioh-jbb-bqqctzs and prescription medicines only as told by [...] provider. Document Revised: 08/19/2022 Document Reviewed: 08/19/2022 [employer] Patient Education ? 2022 [employer]. Orthopedics Muscle Strain A muscle strain, o (more content not included)... Normal [facility] [place] Mamm Screen w/CAD if perf [...] very important to your health. The current [employer] and National Comprehensive Cancer [...] Angelito Vidal M.D. Transcribed by: CONSTANZA Technologist: [facility] Assessment: BI-RADS Category 2-Benign finding Recommendation: Normal interval follow-up Normal [facility] Consent for Treatmenton 05-23 Consent for Treatment [id number] 30 [id number] #1.00CD:127 Normal [facility] Physician Orderon 06-07-2023 Physician Order [id number] #1.00CD:127 Normal [facility] Auto Diffon 04-30-2023 Basophils/100 WBC (Bld) 0.9 % Normal 0.0-2.0 [facility] Comment on above: Order Comment: Order Added by Giancarlo Expert. Performed By: #### 2 933819, 5624565, 7859416, 3620335, 0237300, 14511161 #### [facility] [address] [place] [address] Basophils/Leukocytes Auto (Bld) [Pure # fraction] 0.0 E9/L Normal 0.0-0.2 [facility] Comment on above: Order Comment: Order Added by Discern Expert. Performed By: #### 2 455792, 8081784, 6403482, 0101025, 8892294, [id number] #### [facility] [address] [place] [address] 23175 Eosinophils/100 WBC (Bld) 2.7 % Normal 0.0-8.0 [facility] Comment on above: Order Comment: Order Added by Giancarlo Expert. Performed By: #### 2 409302, 0387905, 4451391, 9870423, 8857829, 14800786 #### [facility] [address] [place] [address] 59571 Eosinophils/Leukocyte s Auto (Bld) [Pure # fraction] 0.1 E9/L Normal 0.0-0.5 [facility] Comment on above: Order Comment: Order Added by Giancarlo Expert. Performed By: #### 2 602673, 1345596, 3766020, 2509215, 0900199, 83538977 #### [facility] [address] [place] [address] 52547 Lymphocytes/100 WBC (Bld) 31.3 % Normal 14.0-50.0 [facility] Comment on above: Order Comment: Order Added by Giancarlo Expert. Performed By: #### 2 955685, 6139752, 5072427, 7501003, 2463914, 28288071 #### [facility] [address] [place] [address] Lymphocytes/Leukocyte s Auto (Bld) [Pure # fraction] 1.2 E9/L Normal 1.0-4.0 [facility] Comment on above: Order Comment: Order Added by Discern Expert. Performed By: #### 2 110880, 4168105, 7103886, 1928412, 4167264, 26063035 #### [facility] [address] [place] [address]861 Monocytes/100 WBC (Bld) 11.7 % Normal 4.0-14.0 [facility] Comment on above: Order Comment: Order Added by Discern Expert. Performed By: #### 2 753281, 4467783, 6770481, 7824417, 4400867, 19849112 #### [facility] [address] [place] [address] Monocytes/Leukocytes Auto (Bld) [Pure # fraction] 0.5 E9/L Normal 0.2-1.0 [facility] Comment on above: Order Comment: Order Added by Giancarlo Expert. Performed By: #### 2 795859, 5111407, 5769277, 6769592, 4053519, 61713006 #### [facility] [address] [place] [address] 41117 Neutrophils/100 WBC (Bld) 53.4 % Normal 36.0-75.0 [facility] Comment on above: Order Comment: Order Added by Discern Expert. Performed By: #### 2 879822, 8228380, 5452148, 8388116, 1701147, 63278859 #### [facility] [address] [place] [address] 23920 Neutrophils/Leukocyte s Auto (Bld) [Pure # fraction] 2.1 E9/L Normal 2.0-7.5 [facility] Comment on above: Order Comment: Order Added by Discern Expert. Performed By: #### 2 257067, 2545835, 1416825, 0015414, 1795848, 25764282 #### [facility] [address] [place] [address] BMPon 04-30-2023 Anion gap [Moles/Vol] 10 mmol/L Normal 6-16 [facility] Comment on above: Performed By: #### 2 984551, 5748592, 1005722, 0487651, 0588275, 61020780 #### [facility] [address] [place] [address] Calcium [Mass/Vol] 8.9 mg/dL Normal 8.9-11.1 [facility] Comment on above: Performed By: #### 2 783488, 1978204, 2033042, 9677424, 3478077, 93279545 #### [facility] [address] [place] [address] Chloride [Moles/Vol] 107 mmol/L Normal 101-111 [facility] Comment on above: Performed By: #### 2 472659, 6548363, 9902886, 5923449, 8552756, 41947881 #### [facility] [address] [place] [address] CO2 [Moles/Vol] 26 mmol/L Normal 21-31 [facility] Comment on above: Performed By: #### 2 751907, 8875393, 2664452, 2550726, 5120671, 19212361 #### [facility] [address] [place] [address] Creatinine [Mass/Vol] 0.7 mg/dL Normal 0.5-1.3 [facility] Comment on above: Performed By: #### 2 903294, 1118674, 4590028, 8593864, 9025286, 41559505 #### [facility] [address] [place] [address] Glucose [Mass/Vol] 92 mg/dL Normal 55-199 [facility] Comment on above: Result Comment: If t his glucose result represents a fasting glucose, interpretation should refer to the following reference range: 55-99 mg/dL Performed By: #### 2 894971, 6604255, 9745760, 3522834, 1729623, 50897688 #### [facility] [address] [place] [address] Potassium [Moles/Vol] 3.9 mmol/L Normal 3.5-5.3 [facility] Comment on above: Performed By: #### 2 965312, 0081726, 0314500, 8947854, 5217348, 25279514 #### [facility] [address] [place] [address] Sodium [Moles/Vol] 139 mmol/L Normal 135-145 [facility] Comment on above: Performed By: #### 2 551750, 2738126, 9234274, 7597468, 1440042, 36746444 #### [facility] [address] [place] [address] Urea nitrogen [Mass/Vol] 19 mg/dL Normal 5-21 [facility] Comment on above: Performed By: #### 2 612156, 3337236, 3657959, 5791581, 3828371, 59932985 #### [facility] [address] [place] [address] Urea nitrogen/Creatinine [Mass ratio] 27 No Units High 10-20 [facility] Comment on above: Performed By: #### 2 885967, 8220255, 3886149, 9002948, 3900482, 04877971 #### [facility] [address] [place] [address] CBC w/ Auto Diffon 3 Erythrocyte distribution width (RBC) [Ratio] 12.3 % Normal 10.9-14.2 [facility] Comment on above: Performed By: #### 2 940269, 8201464, 8761563, 5201404, 8948137, 52920002 #### [facility] [address] [place] [address] Hematocrit (Bld) [Volume fraction] 35.9 % Normal 34.0-46.0 [facility] Comment on above: Performed By: #### 2 224429, 6889966, 6910464, 4527722, 1978400, 26254459 #### [facility] [address] [place] [address] Hemoglobin (Bld) [Mass/Vol] 12.1 g/dL Normal 12.0-16.0 [facility] Comment on above: Performed By: #### 2 251701, 7238617, 0184697, 9381676, 3198843, 71561655 #### [facility] [address] [place] [address]66[address] MCH (RBC) [Entitic mass] 32.5 pg Normal 27.0-34.0 [facility] Comment on above: Performed By: #### 2 710564, 5206040, 8605838, 4521422, 8738037, 76532955 #### [facility] [address] [place] [address] MCHC (RBC) [Mass/Vol] 33.8 g/dL Normal 31.4-36.0 [facility] Comment on above: Performed By: #### 2 468376, 0422274, 5663329, 1344544, 0625037, 74218300 #### [facility] [address] [place], [place] [address] MCV (RBC) [Entitic vol] 96.1 fL Normal 80.0-100.0 [facility] Comment on above: Performed By: #### 2 388159, 3256359, 9022874, 6133745, 9397649, 13814758 #### [facility] [address] [place] [address] Platelet mean volume (Bld) [Entitic vol] 8.9 fL Normal 6.4-10.8 [facility] Comment on above: Performed By: #### 2 937540, 5254508, 0470617, 6742778, 0040082, 42488882 #### [facility] [address] [place] [address] Platelets (Bld) [#/Vol] 186.0 E9/L Normal 150.0-500.0 [facility] Comment on above: Performed By: #### 2 190650, 6916489, 1159418, 7567092, 3243787, 18332826 #### [facility] [address] [place] [address]53[address] RBC (Bld) [#/Vol] 3.7 E12/L Low 4.3-5.9 [facility] Comment on above: Performed By: #### 2 471732, 5991253, 9729674, 7688673, 7311005, 35611435 #### [facility] [address] [place] [address] WBC corrected for nucl RBC Auto (Bld) [#/Vol] 3.9 E9/L Low 4.0-11.0 [facility] Comment on above: Performed By: #### 2 789296, 2336322, 1789734, 3061772, 7689621, 92603218 #### [facility] [address] [place] [address] Consent for Treatmenton Consent for Treatment [id number] 30 [id number] #1.00CD:127 Normal [facility] Hep Func Panelon 04-30-2023 Albumin [Mass/Vol] 3.7 g/dL Normal 3.3-5.0 [facility] Comment on above: Performed By: #### 2 577596, 9639835, 0284984, 7755864, 8650110, 96576280 #### [facility] [address] [place] [address]24[address] Albumin/Globulin (S) [Mass conc ratio] 1.1 Normal 1.1-2.2 [facility] Comment on above: Performed By: #### 2 325280, 2881635, 9712602, 9627930, 0092799, 74456554 #### [facility] [address] [place] [address] ALP [Catalytic activity/Vol] 78 Int._Unit/L Normal 21-98 [facility] Comment on above: Performed By: #### 2 882726, 2136990, 8716189, 5985108, 1278343, 96161672 #### [facility] [address] [place] [address] ALT No additional P-5'-P [Catalytic activity/Vol] 20 Int._Unit/L Normal 6-46 [facility] Comment on above: Performed By: #### 2 386976, 7762301, 7146738, 1088074, 5865451, 65265342 #### [facility] [address] [place] [address] AST [Catalytic activity/Vol] 23 Int._Unit/L Normal 5-43 [facility] Comment on above: Performed By: #### 2 786038, 7017943, 4712726, 8598463, 2292598, 32410033 #### [facility] [address] [place] [address] Bilirubin [Mass/Vol] 1.0 mg/dL Normal 0.0-1.1 [facility] Comment on above: Performed By: #### 2 945765, 0900463, 4706899, 6375843, 6855237, 81653257 #### [facility] [address] [place] [address] Bilirubin.direct [Mass/Vol] 0.1 mg/dL Normal 0.1-0.4 [facility] Comment on above: Performed By: #### 2 069402, 8610369, 9022183, 1557353, 5490359, 51754182 #### [facility] [address] [place] [address] Bilirubin.indirect [Mass or moles/Vol] 0.9 mg/dL Normal 0.1-0.9 [facility] Comment on above: Performed By: #### 2 154180, 5838660, 9867575, 3355225, 5029564, 61808154 #### [facility] [address] [address] Globulin (S) [Mass/Vol] 3.5 g/dL Normal 1.4-4.0 [facility] Comment on above: Performed By: #### 2 403045, 1761897, 2298697, 4252404, 0008337, 28322551 #### [facility] [address] [place] [address] Protein [Mass/Vol] 7.2 g/dL Normal 6.0-7.8 [facility] Comment on above: Performed By: #### 2 297539, 0496824, 1014387, 9959445, 0500373, 08452704 #### [facility] [address] [place] [address] Lipid Panelon 04-30-2023 Cholesterol [Mass/Vol] 162 mg/dL Normal 120-200 [facility] Comment on above: Performed By: #### 2 853293, 7217016, 8249114, 4194249, 5956449, 97098483 #### [facility] [address] [place] [address] Cholesterol in HDL [Mass/Vol] 62 mg/dL Invalid Interpretation Code [facility] Comment on above: Result Comment: HDL > or equal to 60 mg/dL: Low cardiovascular risk HDL < 40 mg/dL : High cardiovascular risk Performed By: #### 2 044516, 1263892, 8164907, 9372536, 4069382, 24139318 #### [facility] [address] [place] [address] Cholesterol in LDL [Mass/Vol] 96 mg/dL Normal <=129 [facility] Comment on above: Performed By: #### 2 838023, 4453306, 5560445, 4221739, 7569745, 07883552 #### [facility] [address] [place] [address] Cholesterol in VLDL [Mass/Vol] 8 mg/dL Normal 7-40 [facility] Comment on above: Performed By: #### 2 649077, 0882449, 1341047, 5362960, 5936268, 59202471 #### [facility] [address] [place] [address] Triglyceride [Mass/Vol] 40 mg/dL Normal <=149 [facility] Comment on above: Performed By: #### 2 581678, 9034368, 0784417, 1045433, 2117939, 66167231 #### [facility] [address] [place] [address] eGFRon 04-30-2023 GFR/1.73 sq M.predicted among non-blacks MDRD (S/P/Bld) [Vol rate/Area] 101 mL/min/1.73 m2 Normal >=59 [facility] Comment on above: Order Comment: Order added by Discern Expert. Result Comment: Film Crew Member felipa kidney disease could be indicated at eGFR's of less than 60 mL/min/1.73m2. Kidney failure is indicated at less than 15 mL/min/1.73m2. Performed By: #### 2 097013, 0242851, 7006627, 3375807, 5440443, 20220109 #### [facility] [address] [place] [address] Covid-19 PCR (CVDTB)on 05-22 SARS-CoV-2 (COVID-19) RNA AURA+probe Ql (Unsp spec) Not detected Normal NOT DETECTED [facility] Comment on above: Result Comment: This test is not yet approved or cleared by the [place] FDA. When there are no FDA-approved or cleared tests available, and other criteria are met, FDA can make tests available under an emergency access mechanism called an Emergency Use Authorization (EUA). The EUA for this test is supported by the [place] of Health and Human Service's (HHS's) declaration [...] SARS-CoV-2. Performed By: #### C VDTBH #### [facility] [address] [address] [address] Tomas Chauhan CHEMISTRYOrdered By: SYSTEM SYSTEM [...] 34.5 g/dL Normal 31.4 - 36.0 gm/dL [facility] HemeAutoSS MCV (RBC) [Entitic vol] 99.2 fL [...] 4.5 E9/L Normal 4.0 - 11.0 E9/L [facility]eAuto[facility] Vital Signs Date Time Vital Sign Value Performing Clinician Faci lity 08-16-2023 07:39-0400 Blood Pressure Location Piero MARYANERICA [facility] 08-16-2023 07:39-0400 Body temperature 98.42 [degF] Piero MARYANOBX [employer] [facility] 08-16-2023 07:39-0400 Diastolic blood pressure 82 mm[Hg] Piero MARYANLE [facility] 08-16-2023 07:39-0400 Heart rate 76 /min Piero MARYANLE [facility] 08-16-2023 07:39-0400 Respiratory rate 16 /min Piero MARYANLE [facility] 08-16-2023 07:39-0400 SaO2% (BldA) [Mass fraction] 99 % Piero STEINBERGERICA [facility] 08-16-2023 07:39-0400 Systolic blood pressure 120 mm[Hg] Piero HENDRICKSON [facility] 05-18-2022 10:04-0400 Blood Pressure Location Piero KAPLE [facility] 05-18-2022 10:04-0400 Body temperature 97.88 [degF] Piero KAPLE [facility] 05-18-2022 10:04-0400 Diastolic blood pressure 78 mm[Hg] Piero KAPLE [facility] 05-18-2022 10:04-0400 Heart rate 84 /min Piero KAPLE [facility] 05-18-2022 10:04-0400 Respiratory rate 16 /min Piero KAPLE [facility] 05-18-2022 10:04-0400 SaO2% (BldA) [Mass fraction] 98 % Piero KAPLE [facility] 05-18-2022 10:04-0400 Systolic blood pressure 122 mm[Hg] Piero KAPLE [facility] Encounters Encounter Date Encounter Type Care Provider Facility Start: 08-28-2023 End: 08-29-2023 ambulatory Piero HENDRICKSON [facility] Start: 08-16-2023 End: 08-17-2023 ambulatory Piero HENDRICKSON Facility:[facility] Start: 08-16-2023 End: 08-16-2023 Patient encounter procedure Piero HENDRICKSON [facility] Start: 08-16-2023 End: 08-16-2023 Well adult monitoring check done Piero HENDRICKSON [facility] Start: 06-11-2023 End: 06-12-2023 ambulatory Jonh Ann Facility:[facility] Start: 04-30-2023 End: 05-01-2023 ambulatory Piero HENDRICKSON Facility[facility] Start: 06-08-2022 End: 06-08-2022 Patient encounter procedure Jonh Ann [facility] Start: 06-08-2022 Encounter for preprocedural laboratory examination DR ALICE HERRERA [facility] Start: 06-05-2022 End: 06-06-[address] ALICE HERRERA Facility: Start: 06-05-2022 End: 06-06-2022 Encounter for preprocedural laboratory examination DR ALICE HERRERA Facility:[facility] Start: 05-19-2022 End: 05-19-2022 Lab Drop off Jonh Ann [facility] Start: 05-18-2022 End: 05-18-2022 Patient encounter procedure Piero HENDRICKSON [facility] Start: 05-18-2022 End: 05-18-2022 Preprocedural examination done Piero HENDRICKSON [facility] Start: 04-10-2022 End: 04-10-2022 Patient encounter procedure Piero HENDRICKSON [facility] Procedures Date Procedure Procedure Detail Performing Clinician Start: 06-09-2022 Insertion of hip prosthesis Piero HENDRICKSON Comment on above: Dr. Sandeep Samuel Bilateral tubal ligation Sco aracelis KAPLE section Piero HENDRICKSON Colonoscopy Piero KAPLE laparoscopic Piero KAPLE venous blockage Piero KAPLE Immunizations Immunization Date Immunization Notes Care Provider Fa cili 09-03-2022 influenza virus vaccine, unspecified formulation Piero KAPLE [facility] 08-26-2021 influenza virus vaccine, unspecified formulation Piero KAPLE [facility] Comment on above: Result Comment: [facility] 08-22-2020 influenza virus vaccine, unspecified formulation Piero KAPLE [facility] 08-29-2019 influenza virus vaccine, unspecified formulation Piero KAPLE [facility] 08-28-2019 influenza virus vaccine, unspecified formulation Piero KAPLE [facility] 10-18-2017 influenza virus vaccine, unspecified formulation Piero KAPLE [facility] 09-15-2016 influenza virus vaccine, unspecified formulation Piero KAPLE [facility] 09-17-2015 influenza virus vaccine, unspecified formulation Piero KAPLE [facility] 09-11-2014 influenza virus vaccine, unspecified formulation Piero KAPLE [facility] 09-16-2013 influenza virus vaccine, unspecified formulation Piero KAPLE [facility] 11-04-2010 tetanus toxoid, reduced diphtheria toxoid, and acellular pertussis vaccine, adsorbed Piero KAPLE [facility] 03-06-2010 hepatitis A vaccine, adult dosage Piero KAPLE [facility] 03-06-2010 hepatitis B vaccine, pediatric or pediatric/adolescent dosage Piero KAPLE [facility] 11-07-2009 hepatitis B vaccine, pediatric or pediatric/adolescent dosage Piero KAPLE [facility] 09-21-2009 influenza virus vaccine, H1N1, live Piero HENDRICKSON [facility] 09-05-2009 hepatitis A vaccine, adult dosage Piero STEINBERGLE [facility] 09-05-2009 hepatitis B vaccine, pediatric or pediatric/adolescent dosage Piero KAPLE [facility] NEGATED: Highlighted row has not occurred!08-16-2023 influenza virus vaccine, unspecified formulation Piero HENDRICKSON [facility] NEGATED: Highlighted row has not occurred!08-16-2023 SARS-CoV-2 mRNA (tozinameran 5y-11y) vaccine Piero HENDRICKSON [facility] Payers Date Payer Category Payer Unknown [id number] 2.16.84 [id number] 1965 Unknown [id number] 2.16.8 [id number] 1965 Unknown [id number] 2.16.8 [id number] 1966 Unknown [id number] 2.16.8 [id number] 1966 Unknown [id number] 2.16.8 [id number] 1958 Private Health Insurance [id number] Social History Date Type Detail Facility Start: 03-07-2021 End: 08-16-2023 Tobacco smoking status Never smoked tobacco (finding) [facility] Tobacco smoking status Never [facility] Sex Assigned At Female [facility] Functional Status Date Assessment Result Facility 08-16-2023 Functional Status N/A [facility] 05-18-2022 Functional Status N/A [facility] Evaluation + Plan note 08-16-2023 Radiology Note Date & Type Note Facility 08-16-2023 Evaluation + Plan note Future Scheduled TestsCT Abdomen/Pelvis w/o Contrast 08/16/23 [facility] Discharge instructions 08-16-2023 Note Date & Type Note Facility 08-16-2023 Hospital Discharg e instructions Patient Education 08/16/2023 08:23:19 Muscle Strain, Umox-ml-Dfgm Muscle Strain A muscle strain, or pulled [...] is not too tight. General instructions Take ephx-yai-bdlzfbq and prescription medicines only as told by [...] provider. Document Revised: 01/26/2022 Document Reviewed: 01/26/2022 [employer] Patient Education 20[employer]. 08/16/2023 08:23:11 Cold Sore, Prvi-xc-Pfso Cold Sore A cold sore, also called [...] instructions at home: Medicines Take or apply kyis-xod-rimkkks and prescription medicines only as told by [...] provider. Document Revised: 08/19/2022 Document Reviewed: 08/19/2022 [employer] Patient Education 2022 [employer]. 08/16/2023 08:10:18 Flank Pain, Adult, Kssw-ir-Bulu Flank Pain, Adult Flank pain is pain [...] Rest as told by your doctor. Take pphj-tic-rfmeihc and prescription medicines only as told by [...] provider. Document Revised: 01/19/2022 Document Reviewed: 01/19/2022 [employer] Patient Education 2022 [employer]. Follow Up Care 04/22/2023 15:20:47 With:EMEKA JAY FAAFP, FAUSTINA Baeza, PED Address: [address] [place] [address] [place] [address]- When:Within 1 Year(s) [facility] Discharge instructions 05-18-2022 Note [...] to take more than one medicine. Take bxxb-fop-bmrudhv and prescription medicines only as told by your health care provider. Where to find support Your health care provider can help you prevent hypertension and help you keep your blood pressure at a healthy level. Your local hospital or your community may also provide support services and prevention programs. The [place] [employer] offers an online support network at: http://supportnetwork.heart.org /avtk-wfjwk-skvhwmgh Where to find more information Learn more about hypertension from: National Heart, Lung, and Blood [place]: www.nhlbi.nih.gov/health/health -topics/topics/hbp Centers for Disease Control and Prevention: www.cdc.gov/bloodpressure [employer] [employer]: http://familydoctor.org/familyd octor/en/diseases-conditions/hi kn-bccpy-dayecyoj.printerview.a ll.html Learn more about the DASH diet from: National Heart, Lung, and Blood [place]: www.nhlbi.nih.gov/health/health -topics/topics/dash Contact a health care provider [...] 11/22/2016 Document Revised: 03/01/2020 Document Reviewed: 07/19/2017 [employer] Patient Education 2020 [employer]. Follow Up Care 05/05/2022 13:24:35 With:Piero HENDRICKSON DO, FAAFP, FAM, PED Address: [address] [place] [address]- When:Within 1 Year(s) [facility] Evaluation + Plan note 05-09-2022 Note Date & Type Note Facility 05-09-2022 Evaluation + Plan note Diagnostic Tests PendingPAP [id number] IG Apt HPV,rfx 16/18,45 05/19/22 [facility] Evaluation + Plan note Note Date & Type Note Facility Evaluation + Plan note No data available for this section [facility] Hospital Discharge instructions Note Date & Type Note Facility Hospital Discharge instructions No data available for this section [facility] Progress note Note Date & Type Note Facility Progress note No data available for this section [facility] Summary Purpose Family History No Family History Records FoundNo Family History Records Found Advance Directives No Advanced Directives Records FoundNo Advanced Directives Records Found Additional Source Comments Care Team (unrecognized sect ion and content) Personnel Name: Piero HENDRICKSON DO, FAAFP Address: [place] [address] Personnel Name: Piero HENDRICKSON DO, FAAFP Address: [place] [address] Personnel Name: Piero HENDRICKSON DO, FAAFP Address: [place] A [address] Personnel Name: Piero HENDRICKSON DO, FAAFP Address: [facility] A [address] Personnel Name: Piero HENDRICKSON DO, FAAFP Address: Address: [place] A [address] INFORMATION SOURCE (unrecogn ized section and content) DATE CREATED AUTHOR 06/11/2022 [facility] DATE CREATED AUTHOR 'S ORGANIZ ATION 08/31/2023 [facility] FOR RECORDS PERTAINING TO PATIENTS WHO [...] BE BASED ON THE PRIMARY CLINICAL RECORDS. [facility] [employer] [facility]. provides no warranty or guarantee of the accuracy or completeness of information in this document.
== END 2024-02-22 07:52 | disposition home or self-care (01) ==
LOC: VC 07:52
PROVIDERS: PCP Radiology Diagnostic Radiology; Visit Provider Radiology Diagnostic Radiology
DX: I80.02 Phlebitis and thrombophlebitis of superficial vessels of left lower extremity (principal)
CPT/HCPCS: 93971; G0463

== ENCOUNTER 2024-03-24 07:56 | Outpatient (OUT) | payer OTHER, SELFPAY ==
--- NOTE | 2024-03-24 07:56 | VEIN_ITS ---
[address] [address] Patient Name: KTAYA CORONEL MRN: [id number] date: 1965 Sex: F Assigned Patient Location: Current Patient Location: Accession/Order Number: [id number] Exam Date: 03/24/2024 07:56 Report Date: 03/24/2024 08:55 At the request of: ODALYS MERIDA Procedure: VC INJ Foam Sclerosant WUS ESTIMATING ENGINEER PROCEDURE: VC INJ Foam Sclerosant WUS ESTIMATING ENGINEER, right leg COMPARISON: None. HISTORY: I83.813 Pain due to varicose veins of bilateral legs Pre-operative Diagnosis: CEAP class C3 venous insufficiency with pain, tenderness, edema and incompetent right varicose and saphenous vein(s), chronic venous insufficiency right leg secondary to venous incompetence Post-operative Diagnosis: CEAP class C3 venous insufficiency with pain, tenderness, edema and incompetent right varicose and saphenous vein(s), chronic venous insufficiency right leg secondary to venous incompetence Procedure Performed: 1. Ultrasound-guided microfoam chemical ablation with Varithenaregistered 2. Intraoperative ultrasound guidance Anesthesia: None Indications for Procedure: 58-year-old female who presents with a long history of lower extremity pain and varicose veins in subcutaneous edema. The patient failed conservative medical therapy including medical compression stockings, exercise and analgesics. Prior procedures include endovenous laser ablation. Multiple incompetent varicosities of the right leg. Duplex scan showed reflux and enlarged diameters up to 4 mm. The patient underwent informed consent including management options where the complications of infection, bleeding, pain, and skin injury were discussed. Particular attention was spent discussing thrombus extension and deep vein thrombosis as well as the possibility of pulmonary embolus and treatment with oral or injectable blood thinners. Procedure: The patient walked to the procedure room. All applicable staff donned appropriate apparel. A procedure timeout was performed to confirm correct patient, correct extremity, correct procedure, and correct room set-up including presence of all applicable supplies, devices, and drugs. A duplex ultrasound, performed by myself confirmed the location and incompetence of branch saphenous varicosities and their course was marked on the skin together with the dilated tributaries. The extent of treatment of the vein and the associated varicosities was determined through ultrasound mapping. The skin was prepped and then punctured with a butterfly needle and advanced under ultrasound guidance. The Varithenaregistered canister was activated and the canister was primed and purged as required in the instructions for use. Varithenaregistered was drawn into a sterile syringe. The following injections were made: 5 cc injected into the distal right great saphenous vein measuring 4 mm 3 cc injected into a right distal lower leg varicose vein measuring 3 mm 4 cc injected into the right distal medial thigh varicose vein measuring 3 mm 3 cc injected into the right distal anterior thigh varicose vein measuring 3 mm Varithenaregistered was slowly administered at 0.5-1.0 cc/second with close observation by ultrasound of its course in the vessels. Total volume utilized was: 15cc. Following administration of Varithenaregistered the leg was elevated and the patient was asked to repeatedly dorsiflex the ankle to limit flow of Varithenaregistered into perforating veins. Once appropriate spasm had been confirmed in the treated veins, the vascular catheter was removed from the leg and light pressure was applied over the puncture site for hemostasis. The common femoral and deep superficial veins were then evaluated for flow and compressibility prior to dressing placement. The lower extremity was kept elevated at 45 degrees above the horizontal and cording material was applied over the saphenous segments and tributaries to allow for eccentric compression over the target vessels including the targeted saphenous vein(s). A multilayer dressing was applied consisting of foam pads, coban and thigh-high 20-30 mm Hg compression elastic support hose were placed on the patient. The leg was lowered only after compression had been applied and the patient was immediately ambulatory. The patient ambulated 10 minutes under supervision and was without apparent concerns at time of release. Post-care instructions include advising patient to keep post-treatment bandages in place and dry for 48 hours, avoid extended periods of inactivity, avoid heavy exercise for one week, wear compression stockings on the treated leg continuously for two weeks, to walk daily for 10 minutes over the next month. The patient was instructed to take an anti-inflammatory medicine as needed and to follow up for color duplex scan of the Saphenous veins, the treated branch saphenous varicosities, the adjacent deep veins, and additional treatment within 7 days. PERSONNEL: Tanner Jacome RN Electronically authenticated by: ODALYS MERIDA Date: 03/24/2024 08:55
--- OUTSIDE RECORDS SUMMARY | 2024-03-24 07:59 | XMS_ITS | CCD ---
Author Organization [facility] Care Team Providers Care Fusion Analyst Name Role Phone Piero HENDRICKSON Primary Care [...] sources) Erythromycin; Translations: [erythromycin] Drug Allergy unknown [facility] (7 sources) Ramipril; Translations: [ramipril] Drug Allergy angioedema [facility] (7 sources) Sulfonamides (Antibiotic); Translations: [sulfa drugs] Drug allergy unknown [facility] (1 source) Angiotensin Converting Enzyme (Ben) Inhibitors Drug allergy (disorder) 11-22-2014 [facility] (1 source) Erythromycin Drug Allergy [facility] (1 source) Sulfonamides (Antibiotic) Drug allergy (disorder) 11-22-2014 [facility] Medications Current Medications Medication Drug [...] BID, # 180 tab(s), Refills(s) 3, Pharmacy: [facility], 154, cm, 12/15/21 15:27:00 EST, Height/Length Dosing, 74.4, kg, 12/15/21 15:27:00 EST, Weight Dosing Start Date: 02/27/22 Status: Ordered cyclobenzaprine hydrochloride 10 mg oral tablet (1 source) Muscle Relaxant Start: 02-25-2022 take 1 tablet by mouth at bedtime cyclobenzaprine 10 mg Tab 10 mg = 1 tab(s), Oral, Bedtime, # 30 tab(s), Refills(s) 1, Pharmacy: [facility]/pharmacy #[id number], 154, cm, 12/15/21 15:27:00 EST, [...] Spasm, # 50 tab(s), Refills(s) 1, Pharmacy: [facility]/pharmacy #[id number], 154, cm, 08/16/23 7:47:00 EDT, [...] BID, # 30 tab(s), Refills(s) 3, Pharmacy: [facility]/pharmacy #[id number], 154, cm, 08/16/23 7:47:00 EDT, [...] amount in ml's: 0 Normal [facility] Consent for Treatmenton Consent for Treatment [id number] 31 [id number] #1.00TIFF Normal [facility] Insurance Correspondenceon 0 08-18-2023 Insurance Correspondence [id number] 3#1.00CD:127 Normal [facility] Ambulatory Visit Summaryon 0 08-16-2023 Ambulatory Visit [...] PED When: In 1 year Where: [address], [place] [address]- You Need to Complete the Following CT [...] Information [facility]: [address] [facility] [address] [place], [place] [id number] [phone] [id number]: [address] [place], [place] [phone] Medications and Immunizations Administered Not Given influenza [...] as told by your doctor. ? Take pffj-iue-gjysfte and prescription medicines only as told by [...] provider. Document Revised: 01/19/2022 Document Reviewed: 01/19/2022 Causes Patient Education ? 2022 [employer]. Darin Mijares [facility] Medicine Office/Clini c Noteon 08-16-2023 [...] Spasm, # 50 tab(s), Refills(s) 1, Pharmacy: [facility]/pharmacy #[id number], 154, cm, 08/16/23 7:47:00 EDT, Height/Length Dosing, 77, kg, 08/16/23 7:46:00 EDT, Weight Dosing CT Abdomen/Pelvis w/o Contrast 7. 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 Normal [facility] Comment on above: Result Comment: Elec tronically [...] at home: Medicines ? Take or apply toza-ped-yyevdow and prescription medicines only as told by [...] provider. Document Revised: 08/19/2022 Document Reviewed: 08/19/2022 Causes Patient Education ? 2022 [employer]. Orthopedics Muscle Strain A muscle strain, o (more content not included)... Normal [facility] MA Mamm Screen w/CAD if perf and [...] very important to your health. The current [employer] and National Comprehensive Cancer [...] Angelito Vidal M.D. Transcribed by: CONSTANZA Technologist: [facility] Assessment: BI-RADS Category 2-Benign finding Recommendation: Normal interval follow-up Normal [facility] Consent for Treatmenton 05-23 Consent for Treatment [id number] 30 [id number] #1.00CD:127 Normal [facility] Physician Orderon 06-07-2023 Physician Order [id number] #1.00CD:127 Normal [facility] Auto Diffon 04-30-2023 Basophils/100 WBC (Bld) 0.9 % Normal 0.0-2.0 [facility] Comment on above: Order Comment: Order Added by Giancarlo Expert. Performed By: #### 2 328690, 4284449, 7955635, 5482259, 7877474, 86896453 #### [facility] [address] [place] [address]204 Basophils/Leukocytes Auto (Bld) [Pure # fraction] 0.0 E9/L Normal 0.0-0.2 [facility] Comment on above: Order Comment: Order Added by Discern Expert. Performed By: #### 2 244044, 5671843, 4041855, 9856917, 3989369, 29583255 #### [facility] [address] [place] [address] 19923 Eosinophils/100 WBC (Bld) 2.7 % Normal 0.0-8.0 [facility] Comment on above: Order Comment: Order Added by Giancarlo Expert. Performed By: #### 2 147475, 3369385, 7124592, 3587185, 7793924, 72152307 #### [facility] [address] [place] [address]281 Eosinophils/Leukocyte s Auto (Bld) [Pure # fraction] 0.1 E9/L Normal 0.0-0.5 [facility] Comment on above: Order Comment: Order Added by Giancarlo Expert. Performed By: #### 2 746548, 8665624, 9562709, 3730792, 7164858, 33770764 #### [facility] [address] [place] [address] 18325 Lymphocytes/100 WBC (Bld) 31.3 % Normal 14.0-50.0 [facility] Comment on above: Order Comment: Order Added by Giancarlo Expert. Performed By: #### 2 438909, 6084271, 6605813, 0045712, 2848903, 80030270 #### [facility] [address] [place] [address] 26058 Lymphocytes/Leukocyte s Auto (Bld) [Pure # fraction] 1.2 E9/L Normal 1.0-4.0 [facility] Comment on above: Order Comment: Order Added by Discern Expert. Performed By: #### 2 884075, 5115674, 8980528, 1523880, 9928540, 84162165 #### [facility] [address] [place] [address] 99281 Monocytes/100 WBC (Bld) 11.7 % Normal 4.0-14.0 [facility] Comment on above: Order Comment: Order Added by Discern Expert. Performed By: #### 2 633145, 0930106, 3547400, 1159595, 5257385, 36079372 #### [facility] [address] [place] [address] Monocytes/Leukocytes Auto (Bld) [Pure # fraction] 0.5 E9/L Normal 0.2-1.0 [facility] Comment on above: Order Comment: Order Added by Giancarlo Expert. Performed By: #### 2 009366, 7828526, 5975420, 4562977, 2264715, 67165290 #### [facility] [address] [place] [address] 87414 Neutrophils/100 WBC (Bld) 53.4 % Normal 36.0-75.0 [facility] Comment on above: Order Comment: Order Added by Discern Expert. Performed By: #### 2 057397, 1351228, 4739196, 4367455, 1016748, 70817548 #### [facility] [address] [place] [address] 39377 Neutrophils/Leukocyte s Auto (Bld) [Pure # fraction] 2.1 E9/L Normal 2.0-7.5 [facility] Comment on above: Order Comment: Order Added by Discern Expert. Performed By: #### 2 089343, 0730519, 7584536, 1215798, 4969163, 12400063 #### [facility] [address] [place] [address] BMPon 04-30-2023 Anion gap [Moles/Vol] 10 mmol/L Normal 6-16 [facility] Comment on above: Performed By: #### 2 155121, 9632254, 6004627, 4770502, 5582230, 48019547 #### [facility] [address] [place] [address] Calcium [Mass/Vol] 8.9 mg/dL Normal 8.9-11.1 [facility] Comment on above: Performed By: #### 2 802237, 2404959, 9187940, 7200902, 4935175, 90665934 #### [facility] [address] [place] [address] Chloride [Moles/Vol] 107 mmol/L Normal 101-111 [facility] Comment on above: Performed By: #### 2 297517, 0345668, 2469003, 5021602, 7472359, 54756403 #### [facility] [address] [place] [address] CO2 [Moles/Vol] 26 mmol/L Normal 21-31 [facility] Comment on above: Performed By: #### 2 081968, 9371571, 0615808, 7362314, 8674222, 25658612 #### [facility] [address] [place] [address] Creatinine [Mass/Vol] 0.7 mg/dL Normal 0.5-1.3 [facility] Comment on above: Performed By: #### 2 829941, 5565802, 7689860, 3364078, 1688556, 93566760 #### [facility] [address] [place] [address] Glucose [Mass/Vol] 92 mg/dL Normal 55-199 [facility] Comment on above: Result Comment: If t his glucose result represents a fasting glucose, interpretation should refer to the following reference range: 55-99 mg/dL Performed By: #### 2 051187, 8808974, 6807514, 6688425, 6519279, 12289297 #### [facility] [address] [place] [address] Potassium [Moles/Vol] 3.9 mmol/L Normal 3.5-5.3 [facility] Comment on above: Performed By: #### 2 436473, 2356882, 2168520, 6434094, 0859639, 16693834 #### [facility] [address] [place] [address] Sodium [Moles/Vol] 139 mmol/L Normal 135-145 [facility] Comment on above: Performed By: #### 2 265378, 3987128, 9101912, 6206277, 7289118, 22502457 #### [facility] [address] [place] [address] Urea nitrogen [Mass/Vol] 19 mg/dL Normal 5-21 [facility] Comment on above: Performed By: #### 2 803200, 6007905, 9535293, 5691885, 9155161, 59197659 #### [facility] [address] [place] [address] Urea nitrogen/Creatinine [Mass ratio] 27 No Units High 10-20 [facility] Comment on above: Performed By: #### 2 727204, 2170585, 6531278, 1137736, 4751504, 23109915 #### [facility] [address] [place] [address] CBC w/ Auto Diffon 3 Erythrocyte distribution width (RBC) [Ratio] 12.3 % Normal 10.9-14.2 [facility] Comment on above: Performed By: #### 2 910413, 1547995, 1903526, 7112174, 3097589, 50683983 #### [facility] [address] [place] [address] Hematocrit (Bld) [Volume fraction] 35.9 % Normal 34.0-46.0 [facility] Comment on above: Performed By: #### 2 238437, 4076322, 5469402, 9004132, 5524215, 15374264 #### [facility] [address] [place] [address] Hemoglobin (Bld) [Mass/Vol] 12.1 g/dL Normal 12.0-16.0 [facility] Comment on above: Performed By: #### 2 585175, 9114969, 2595933, 7958176, 0087527, 00843815 #### [facility] [address] [place] [address] 97334 MCH (RBC) [Entitic mass] 32.5 pg Normal 27.0-34.0 [facility] Comment on above: Performed By: #### 2 241151, 8388094, 6852540, 3270958, 2339565, 16022336 #### [facility] [address] [place] [address]24 MCHC (RBC) [Mass/Vol] 33.8 g/dL Normal 31.4-36.0 [facility] Comment on above: Performed By: #### 2 863266, 9285460, 0961163, 0337548, 4255958, 70781932 #### [facility] [address] [place], [place] [address] MCV (RBC) [Entitic vol] 96.1 fL Normal 80.0-100.0 [facility] Comment on above: Performed By: #### 2 767157, 8118123, 2310971, 0698253, 4366019, 18496098 #### [facility] [address] [place] [address] Platelet mean volume (Bld) [Entitic vol] 8.9 fL Normal 6.4-10.8 [facility] Comment on above: Performed By: #### 2 031584, 3456612, 7068858, 9251328, 6254981, 48491267 #### [facility] [address] [place] [address] 848[address] Platelets (Bld) [#/Vol] 186.0 E9/L Normal 150.0-500.0 [facility] Comment on above: Performed By: #### 2 681908, 3283806, 3651121, 0365089, 3193708, 28705098 #### [facility] [address] [place] [address] 31554 RBC (Bld) [#/Vol] 3.7 E12/L Low 4.3-5.9 [facility] Comment on above: Performed By: #### 2 772160, 4695773, 6111848, 7530809, 6654354, 22237496 #### [facility] [address] [place] [address] WBC corrected for nucl RBC Auto (Bld) [#/Vol] 3.9 E9/L Low 4.0-11.0 [facility] Comment on above: Performed By: #### 2 308734, 2987466, 9786544, 1601244, 0920958, 65888071 #### [facility] [address] [place] [address] Consent for Treatmenton Consent for Treatment [id number] 30 [id number] #1.00CD:127 Normal [facility] Hep Func Panelon 04-30-2023 Albumin [Mass/Vol] 3.7 g/dL Normal 3.3-5.0 [facility] Comment on above: Performed By: #### 2 829235, 7372778, 2741269, 2450523, 8803134, 54764606 #### [facility] [address] [place] [address] 69035 Albumin/Globulin (S) [Mass conc ratio] 1.1 Normal 1.1-2.2 [facility] Comment on above: Performed By: #### 2 755947, 2644009, 5876229, 7347480, 1697173, 24670937 #### [facility] [address] [place] [address] ALP [Catalytic activity/Vol] 78 Int._Unit/L Normal 21-98 [facility] Comment on above: Performed By: #### 2 911223, 8489572, 9702657, 2157021, 1380078, 28640499 #### [facility] [address] [place] [address] ALT No additional P-5'-P [Catalytic activity/Vol] 20 Int._Unit/L Normal 6-46 [facility] Comment on above: Performed By: #### 2 375427, 9180516, 6696376, 5019076, 3441815, 16891388 #### [facility] [address] [place] [address] AST [Catalytic activity/Vol] 23 Int._Unit/L Normal 5-43 [facility] Comment on above: Performed By: #### 2 440818, 6240614, 9432543, 0321176, 6125524, 01432291 #### [facility] [address] [place] [address] Bilirubin [Mass/Vol] 1.0 mg/dL Normal 0.0-1.1 [facility] Comment on above: Performed By: #### 2 948732, 1442464, 4147880, 2533517, 8301843, 25872018 #### [facility] [address] [place] [address] Bilirubin.direct [Mass/Vol] 0.1 mg/dL Normal 0.1-0.4 [facility] Comment on above: Performed By: #### 2 416056, 0479683, 9004821, 7023229, 3328947, 94835481 #### [facility] [address] [place] [address] Bilirubin.indirect [Mass or moles/Vol] 0.9 mg/dL Normal 0.1-0.9 [facility] Comment on above: Performed By: #### 2 394311, 1307460, 1807423, 7265402, 4780225, 73308038 #### [facility] [address] [address] Globulin (S) [Mass/Vol] 3.5 g/dL Normal 1.4-4.0 [facility] Comment on above: Performed By: #### 2 379563, 0587488, 4742026, 9363420, 4084805, 59382224 #### [facility] [address] [place] [address] Protein [Mass/Vol] 7.2 g/dL Normal 6.0-7.8 [facility] Comment on above: Performed By: #### 2 260145, 0382199, 5789240, 3737720, 6055038, 53051584 #### [facility] [address] [place] [address] Lipid Panelon 04-30-2023 Cholesterol [Mass/Vol] 162 mg/dL Normal 120-200 [facility] Comment on above: Performed By: #### 2 720229, 7017234, 8284567, 2476266, 1681716, 08491394 #### [facility] [address] [place] [address] Cholesterol in HDL [Mass/Vol] 62 mg/dL Invalid Interpretation Code [facility] Comment on above: Result Comment: HDL > or equal to 60 mg/dL: Low cardiovascular risk HDL < 40 mg/dL : High cardiovascular risk Performed By: #### 2 370536, 0299081, 7674645, 7789461, 7606116, 68209877 #### [facility] [address] [place] [address] Cholesterol in LDL [Mass/Vol] 96 mg/dL Normal <=129 [facility] Comment on above: Performed By: #### 2 629656, 5066490, 2660987, 6130242, 1458602, 60643705 #### [facility] [address] [place] [address] Cholesterol in VLDL [Mass/Vol] 8 mg/dL Normal 7-40 [facility] Comment on above: Performed By: #### 2 606020, 9329935, 9690690, 2198483, 3065473, 86443810 #### [facility] [address] [place] [address] Triglyceride [Mass/Vol] 40 mg/dL Normal <=149 [facility] Comment on above: Performed By: #### 2 889730, 1152507, 8615689, 9453378, 9256420, 29129632 #### [facility] [address] [place] [address] eGFRon 04-30-2023 GFR/1.73 sq M.predicted among non-blacks MDRD (S/P/Bld) [Vol rate/Area] 101 mL/min/1.73 m2 Normal >=59 [facility] Comment on above: Order Comment: Order added by Discern Expert. Result Comment: Police Detention Attendant felipa kidney disease could be indicated at eGFR's of less than 60 mL/min/1.73m2. Kidney failure is indicated at less than 15 mL/min/1.73m2. Performed By: #### 2 890248, 2612228, 1166495, 6869220, 0033389, 47139830 #### [facility] [address] [place] [address] Covid-19 PCR (CVDTB)on 05-22 SARS-CoV-2 (COVID-19) RNA AURA+probe Ql (Unsp spec) Not detected Normal NOT DETECTED [facility] Comment on above: Result Comment: This test is not yet approved or cleared by the [place] FDA. When there are no FDA-approved or cleared tests available, and other criteria are met, FDA can make tests available under an emergency access mechanism called an Emergency Use Authorization (EUA). The EUA for this test is supported by the [employer] of Health and Human Service's (HHS's) declaration [...] SARS-CoV-2. Performed By: #### C VDTBH #### [facility] [address] [address] [address] Tomas Chauhan CHEMISTRYOrdered By: SYSTEM SYSTEM [...] 34.5 g/dL Normal 31.4 - 36.0 gm/dL [facility] HemeAutoSS MCV (RBC) [Entitic vol] 99.2 fL [...] 4.5 E9/L Normal 4.0 - 11.0 E9/L [facility] HemeAutoSS Vital Signs Date Time Vital Sign Value Performing Clinician Faci lity 08-16-2023 07:39-0400 Blood Pressure Location Piero MARYANERICA [facility] 08-16-2023 07:39-0400 Body temperature 98.42 [degF] Piero MARYANMollyWatr [facility] 08-16-2023 07:39-0400 Diastolic blood pressure 82 mm[Hg] Piero MARYANLE [facility] 08-16-2023 07:39-0400 Heart rate 76 /min Piero MARYANLE [facility] 08-16-2023 07:39-0400 Respiratory rate 16 /min Piero MARYANLE [facility] 08-16-2023 07:39-0400 SaO2% (BldA) [Mass fraction] 99 % Piero STEINBERGERICA [facility] 08-16-2023 07:39-0400 Systolic blood pressure 120 mm[Hg] Piero HENDRICKSON [facility] 05-18-2022 10:04-0400 Blood Pressure Location Piero KAPLE [facility] 05-18-2022 10:04-0400 Body temperature 97.88 [degF] Piero KAPLE [facility] 05-18-2022 10:04-0400 Diastolic blood pressure 78 mm[Hg] Piero KAPLE [facility] 05-18-2022 10:04-0400 Heart rate 84 /min Piero KAPLE [facility] 05-18-2022 10:04-0400 Respiratory rate 16 /min Piero KAPLE [facility] 05-18-2022 10:04-0400 SaO2% (BldA) [Mass fraction] 98 % Piero KAPLE [facility] 05-18-2022 10:04-0400 Systolic blood pressure 122 mm[Hg] Piero KAPLE [facility] Encounters Encounter Date Encounter Type Care Provider Facility Start: 08-28-2023 End: 08-29-2023 ambulatory Piero HENDRICKSON Facility[facility] Start: 08-16-2023 End: 08-17-2023 ambulatory Piero HENDRICKSON Facility:[facility] Start: 08-16-2023 End: 08-16-2023 Patient encounter procedure Piero HENDRICKSON [facility] Start: 08-16-2023 End: 08-16-2023 Well adult monitoring check done Piero HENDRICKSON [facility] Start: 06-11-2023 End: 06-12-2023 ambulatory Jonh Ann Facility:[facility] Start: 04-30-2023 End: 05-01-2023 ambulatory Piero HENDRICKSON Facility:[facility] Start: 06-08-2022 End: 06-08-2022 Patient encounter procedure Jonh Ann [facility] Start: 06-08-2022 Encounter for preprocedural laboratory examination DR ALICE HERRERA [facility] Start: 06-05-2022 End: 06-06-[address] ALICE HERRERA Facility: Start: 06-05-2022 End: 06-06-2022 Encounter for preprocedural laboratory examination DR ALICE HERRERA Facility:[facility] Start: 05-19-2022 End: 05-19-2022 Lab Drop off Jonh Ann [facility] Start: 05-18-2022 End: 05-18-2022 Patient encounter procedure Piero HENDRICKSON [facility] Start: 05-18-2022 End: 05-18-2022 Preprocedural examination done Piero HENDRICKSON [facility] Start: 04-10-2022 End: 04-10-2022 Patient encounter procedure Piero HENDRICKSON [facility] Procedures Date Procedure Procedure Detail Performing Clinician Start: 06-09-2022 Insertion of hip prosthesis Piero HENDRICKSON Comment on above: Dr. Sandeep Samuel Bilateral tubal ligation Sco aracelis KAPLE section Piero HENDRICKSON Colonoscopy Piero KAPLE laparoscopic Piero KAPLE venous blockage Piero KAPLE Immunizations Immunization Date Immunization Notes Care Provider Fa cili 09-03-2022 influenza virus vaccine, unspecified formulation Piero KAPLE [facility] 08-26-2021 influenza virus vaccine, unspecified formulation Piero KAPLE [facility] Comment on above: Result Comment: [facility] 08-22-2020 influenza virus vaccine, unspecified formulation Piero KAPLE [facility] 08-29-2019 influenza virus vaccine, unspecified formulation Piero KAPLE [facility] 08-28-2019 influenza virus vaccine, unspecified formulation Piero KAPLE [facility] 10-18-2017 influenza virus vaccine, unspecified formulation Piero KAPLE [facility] 09-15-2016 influenza virus vaccine, unspecified formulation Piero KAPLE [facility] 09-17-2015 influenza virus vaccine, unspecified formulation Piero KAPLE [facility] 09-11-2014 influenza virus vaccine, unspecified formulation Piero KAPLE [facility] 09-16-2013 influenza virus vaccine, unspecified formulation Piero KAPLE [facility] 11-04-2010 tetanus toxoid, reduced diphtheria toxoid, and acellular pertussis vaccine, adsorbed Piero KAPLE [facility] 03-06-2010 hepatitis A vaccine, adult dosage Piero KAPLE [facility] 03-06-2010 hepatitis B vaccine, pediatric or pediatric/adolescent dosage Piero KAPLE [facility] 11-07-2009 hepatitis B vaccine, pediatric or pediatric/adolescent dosage Piero KAPLE [facility] 09-21-2009 influenza virus vaccine, H1N1, live Piero HENDRICKSON [facility] 09-05-2009 hepatitis A vaccine, adult dosage Piero STEINBERGLE [facility] 09-05-2009 hepatitis B vaccine, pediatric or pediatric/adolescent dosage Piero KAPLE [facility] NEGATED: Highlighted row has not occurred!08-16-2023 influenza virus vaccine, unspecified formulation Piero HENDRICKSON [facility] NEGATED: Highlighted row has not occurred!08-16-2023 SARS-CoV-2 mRNA (tozinameran 5y-11y) vaccine Piero HENDRICKSON [facility] Payers Date Payer Category Payer Unknown [id number] 2.16.84 [id number] 1965 Unknown [id number] 2.16.8 [id number] 1966 Unknown [id number] 2.16.8 [id number] 1966 Unknown [id number] 2.16.8 [id number] 1966 Unknown [id number] 2.16.8 [id number] 1958 Private Health Insurance [id number] Social History Date Type Detail Facility Start: 03-07-2021 End: 08-16-2023 Tobacco smoking status Never smoked tobacco (finding) [facility] Tobacco smoking status Never [facility] Sex Assigned At Female [facility] Functional Status Date Assessment Result Facility 08-16-2023 Functional Status N/A [facility] Care 05-18-2022 Functional Status N/A [facility] Evaluation + Plan note 08-16-2023 Radiology Note Date & Type Note Facility 08-16-2023 Evaluation + Plan note Future Scheduled TestsCT Abdomen/Pelvis w/o Contrast 08/16/23 [facility] Hospital Discharge instructions 08-16-2023 Note Date & Type Note Facility 08-16-2023 Hospital Discharg e instructions Patient Education 08/16/2023 08:23:19 Muscle Strain, Pnzm-sm-Dwas Muscle Strain A muscle strain, or pulled [...] is not too tight. General instructions Take svzo-uzq-qwvgddv and prescription medicines only as told by [...] provider. Document Revised: 01/26/2022 Document Reviewed: 01/26/2022 Causes Patient Education 2022 [employer]. 08/16/2023 08:23:11 Cold Sore, Famb-fg-Ulrm Cold Sore A cold sore, also called [...] instructions at home: Medicines Take or apply pkie-kbt-qgtcala and prescription medicines only as told by [...] provider. Document Revised: 08/19/2022 Document Reviewed: 08/19/2022 Causes Patient Education 2022 [employer]. 08/16/2023 08:10:18 Flank Pain, Adult, Spli-hr-Fmjj Flank Pain, Adult Flank pain is pain [...] Rest as told by your doctor. Take jfkh-zul-nipleld and prescription medicines only as told by [...] provider. Document Revised: 01/19/2022 Document Reviewed: 01/19/2022 Causes Patient Education 2022 [employer]. Follow Up Care 04/22/2023 15:20:47 With:EMEKA JAY FAAFP, FAUSTINA Baeza, PED Address: [address] [place] [address] [place] [address]- When:Within 1 Year(s) [facility] Hospital Discharge instructions 05-18-2022 [...] to take more than one medicine. Take axgg-ero-nurogeh and prescription medicines only as told by your health care provider. Where to find support Your health care provider can help you prevent hypertension and help you keep your blood pressure at a healthy level. Your local hospital or your community may also provide support services and prevention programs. The [place] [employer] offers an online support network at: http://supportnetwork.heart.org /ahiv-hvkmo-utlkuwxz Where to find more information Learn more about hypertension from: National Heart, Lung, and Blood [place]: www.nhlbi.nih.gov/health/health -topics/topics/hbp Centers for Disease Control and Prevention: www.cdc.gov/bloodpressure [employer]: http://familydoctor.org/familyd octor/en/diseases-conditions/hi pu-pxaif-mbsjqivg.printerview.a ll.html Learn more about the DASH diet from: National Heart, Lung, and Blood [place]: www.nhlbi.nih.gov/health/health -topics/topics/dash Contact a health care provider [...] 11/22/2016 Document Revised: 03/01/2020 Document Reviewed: 07/19/2017 Causes Patient Education 2020 [employer]. Follow Up Care 05/05/2022 13:24:35 With:Piero HENDRICKSON DO, FAAFP, FAM, PED Address: [address] [place] [address]- When:Within 1 Year(s) [facility] Evaluation + Plan note 05-09-2022 Note Date & Type Note Facility 05-09-2022 Evaluation + Plan note Diagnostic Tests PendingPAP [id number] IG Apt HPV,rfx 16/18,45 05/19/22 [facility] Evaluation + Plan note Note Date & Type Note Facility Evaluation + Plan note No data available for this section [facility] Discharge instructions Note Date & Type Note Facility Hospital Discharge instructions No data available for this section [facility] Progress note Note Date & Type Note Facility Progress note No data available for this section [facility] Summary Purpose Family History No Family History Records FoundNo Family History Records Found Advance Directives No Advanced Directives Records FoundNo Advanced Directives Records Found Additional Source Comments Care Team (unrecognized sect ion and content) Personnel Name: Piero HENDRICKSON DO, FAAFP Address: [place] [address] Personnel Name: Piero HENDRICKSON DO, FAAFP Address: [place] [address] Personnel Name: Piero HENDRICKSON DO, FAAFP Address: [place] [address] Personnel Name: Piero HENDRICKSON DO, FAAFP Address: [facility] [address] Personnel Name: Piero HENDRICKSON DO, FAAFP Address: Address: [place] [address] INFORMATION SOURCE (unrecogn ized section and content) DATE CREATED AUTHOR 06/11/2022 [facility] DATE CREATED AUTHOR 'S ORGANIZ ATION 08/31/2023 [facility] FOR RECORDS PERTAINING TO PATIENTS WHO ARE [...] BE BASED ON THE PRIMARY CLINICAL RECORDS. [facility]. provides no warranty or guarantee of the accuracy or completeness of information in this document.
== END 2024-03-24 07:57 | disposition home or self-care (01) ==
PROVIDERS: PCP Radiology Diagnostic Radiology; Visit Provider Radiology Diagnostic Radiology
DX: I83.813 Varicose veins of bilateral lower extremities with pain (principal)
CPT/HCPCS: 36466

== ENCOUNTER 2024-03-31 08:52 | Outpatient (OUT) | payer OTHER, SELFPAY ==
--- NOTE | 2024-03-31 08:54 | VEIN_ITS ---
Patient Name: KATYA CORONEL MR#: [id number] : 1965 Exam Date: 03/31/2024 Ordering Doctor: DR ODALYS MERIDA M.D. RADIOLOGY REPORT PROCEDURE: [facility] - OFFICE VISIT FOLLOW UP [facility] PROGRESS NOTES: The patient reports improvement in leg symptoms. There has been interval reduction in varicosities. The patient has followed our recommendations to walk 20-30 minutes once or twice per day since the procedure. Physical exam demonstrates decrease in varicosities of the leg. Persistent reticular and spider veins are identified along the legs bilaterally. Review of the ultrasound performed the same day demonstrates occlusive thrombus extending throughout the treated vein(s), see separate report, consistent with a successful ablation. No thrombus extending into or beyond the saphenofemoral junction. The patient expressed a desire to proceed with treatment of remaining left leg incompetent varicosity. The patient was informed that treatment was a process and would require 1 additional microfoam chemical ablation procedures/sessions. [facility] IM[facility]: 1. Successful ablation of the right leg treated branch saphenous varicosities. 2. Persistent left leg varicose vein. 3. Bilateral lower extremity spider veins. PLAN: 1. Microfoam chemical ablation of left leg incompetent branch saphenous varicosity. 2. Bilateral lower extremity reticular veins and spider veins. Nurse notes, history and physical were reviewed and confirmed, see attached forms. The nurse was present throughout the physical exam and consultation Dictated by: Marlo Gomez M.D. on 03/31/2024 at 11:37 Approved by: Marlo Gomez M.D. on 03/31/2024 at 11:40
--- NOTE | 2024-03-31 08:54 | VEIN_ITS ---
Patient Name: KATYA CORONEL MR#: [id number] : 1965 Exam Date: 03/31/2024 Ordering Doctor: DR ODALYS MERIDA M.D. RADIOLOGY REPORT PROCEDURE: VC EXT VENOUS RT LMTD COMPARISON: VC EXT VENOUS RT LMTD, 02/11/2024. INDICATIONS: I80.01 Phlebitis of superficial veins of right lower extremity TECHNIQUE: Lower extremity womack scale and Duplex Doppler evaluation of the deep venous system from the inguinal ligament through the calf veins. FINDINGS: REGION: Right lower extremity. THROMBI: Negative for DVT. Chemically induced thrombus in multiple varicose veins in right leg. COMPRESSIBILITY: Non-compressible segments corresponding to thrombus FLOW: Areas of no flow corresponding to thrombus OTHER: No significant varicose veins remain. CONCLUSION: 1. Successful post ablation occlusion of right leg treated branch saphenous varicosities. Dictated by: Marlo Gomez M.D. on 03/31/2024 at 10:59 Approved by: Marlo Gomez M.D. on 03/31/2024 at 11:37
== END 2024-03-31 08:53 | disposition home or self-care (01) ==
LOC: VC 08:52
PROVIDERS: PCP Radiology Diagnostic Radiology; Visit Provider Radiology Diagnostic Radiology
DX: I80.01 Phlebitis and thrombophlebitis of superficial vessels of right lower extremity (principal)
CPT/HCPCS: 93971; G0463

== ENCOUNTER 2024-04-07 13:00 | Outpatient (OUT) | payer OTHER, SELFPAY ==
--- NOTE | 2024-04-07 13:03 | VEIN_ITS ---
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 HISTORY: Pain due to varicose veins of bilateral legs I83.813 Pre-operative Diagnosis: CEAP class C3 venous insufficiency with pain, tenderness, edema and incompetent left saphenous and varicose vein(s), chronic venous insufficiency left leg secondary to venous incompetence Post-operative Diagnosis: CEAP class C3 venous insufficiency with pain, tenderness, edema and incompetent left saphenous and varicose vein(s), chronic venous insufficiency left leg secondary to venous incompetence Procedure Performed: 1. Ultrasound-guided microfoam chemical ablation with Varithenaregistered 2. Intraoperative ultrasound guidance Anesthesia: None Indications for Procedure: 58-year-old female who presents with a long history of lower extremity varicose veins with pain and swelling. The patient failed conservative medical therapy including medical compression stockings, exercise and analgesics. Prior procedures include endovenous laser ablation. Multiple incompetent varicosities of the left leg. Duplex scan showed reflux and enlarged diameters up to mm. The patient underwent informed consent including management options where the complications of infection, bleeding, pain, and skin injury were discussed. Particular attention was spent discussing thrombus extension and deep vein thrombosis as well as the possibility of pulmonary embolus and treatment with oral or injectable blood thinners. Procedure: The patient walked to the procedure room. All applicable staff donned appropriate apparel. A procedure timeout was performed to confirm correct patient, correct extremity, correct procedure, and correct room set-up including presence of all applicable supplies, devices, and drugs. A duplex ultrasound, performed by myself confirmed the location and incompetence of branch saphenous varicosities and their course was marked on the skin together with the dilated tributaries. The extent of treatment of the vein and the associated varicosities was determined through ultrasound mapping. The skin was prepped and then punctured with a butterfly needle and advanced under ultrasound guidance. The Varithenaregistered canister was activated and the canister was primed and purged as required in the instructions for use. Varithenaregistered was drawn into a sterile syringe. The following injections were made: 5 cc injected into a 4 mm left lateral lower leg varicose vein 3 cc injected into a left medial lower leg 3 mm varicose vein 3 cc injected into a left medial lower leg 3 mm varicose vein 4 cc injected into a 3 mm left lateral thigh varicose vein Varithenaregistered was slowly administered at 0.5-1.0 cc/second with close observation by ultrasound of its course in the vessels. Total volume utilized was: 15cc. Following administration of Varithenaregistered the leg was elevated and the patient was asked to repeatedly dorsiflex the ankle to limit flow of Varithenaregistered into perforating veins. Once appropriate spasm had been confirmed in the treated veins, the vascular catheter was removed from the leg and light pressure was applied over the puncture site for hemostasis. The common femoral and deep superficial veins were then evaluated for flow and compressibility prior to dressing placement. The lower extremity was kept elevated at 45 degrees above the horizontal and cording material was applied over the saphenous segments and tributaries to allow for eccentric compression over the target vessels including the targeted saphenous vein(s). A multilayer dressing was applied consisting of foam pads, coban and thigh-high 20-30 mm Hg compression elastic support hose were placed on the patient. The leg was lowered only after compression had been applied and the patient was immediately ambulatory. The patient ambulated 10 minutes under supervision and was without apparent concerns at time of release. Post-care instructions include advising patient to keep post-treatment bandages in place and dry for 48 hours, avoid extended periods of inactivity, avoid heavy exercise for one week, wear compression stockings on the treated leg continuously for two weeks, to walk daily for 10 minutes over the next month. The patient was instructed to take an anti-inflammatory medicine as needed and to follow up for color duplex scan of the Saphenous veins, the treated branch saphenous varicosities, the adjacent deep veins, and additional treatment within 7 days. PERSONNEL: Tanner Jacome RN Electronically authenticated by: ODALYS MERIDA Date: 04/07/2024 14:08
--- OUTSIDE RECORDS SUMMARY | 2024-04-07 13:06 | XMS_ITS | CCD ---
Author Organization [facility] Care Team Providers Care Supervisor Sterile Processing Name Role Phone Piero HENDRICKSON Primary Care [...] sources) Erythromycin; Translations: [erythromycin] Drug Allergy unknown [facility] (7 sources) Ramipril; Translations: [ramipril] Drug Allergy angioedema [facility] (7 sources) Sulfonamides (Antibiotic); Translations: [sulfa drugs] Drug allergy unknown [facility] (1 source) Angiotensin Converting Enzyme (Ben) Inhibitors Drug allergy (disorder) 11-22-2014 [facility] (1 source) Erythromycin Drug Allergy [facility] (1 source) Sulfonamides (Antibiotic) Drug allergy (disorder) 11-22-2014 [facility] Medications Current Medications Medication Drug [...] BID, # 180 tab(s), Refills(s) 3, Pharmacy: [facility], 154, cm, 12/15/21 15:27:00 EST, Height/Length Dosing, 74.4, kg, 12/15/21 15:27:00 EST, Weight Dosing Start Date: 02/27/22 Status: Ordered cyclobenzaprine hydrochloride 10 mg oral tablet (1 source) Muscle Relaxant Start: 02-25-2022 take 1 tablet by mouth at bedtime cyclobenzaprine 10 mg Tab 10 mg = 1 tab(s), Oral, Bedtime, # 30 tab(s), Refills(s) 1, Pharmacy: [facility]/pharmacy #[id number], 154, cm, 12/15/21 15:27:00 EST, [...] # 50 tab(s), Refills(s) 1, Pharmacy: [facility]/pharmacy #[id number], 154, cm, 08/16/23 7:47:00 EDT, [...] # 30 tab(s), Refills(s) 3, Pharmacy: [facility]/pharmacy #[id number], 154, cm, 08/16/23 7:47:00 EDT, [...] Oral contrast amount in ml's: 0 Normal [facility] Consent for Treatmenton Consent for Treatment [id number] 31 [id number] #1.00TIFF Normal [facility] Insurance Correspondenceon 0 08-18-2023 Insurance Correspondence [id number]#1.00CD:127 Normal [facility] Ambulatory Visit Summaryon 0 08-16-2023 Ambulatory Visit [...] PED When: In 1 year Where: [address], [place] [address]- You Need to Complete the Following CT Abdomen/Pelvis w/o Contrast, 08/16/23, Routine, Order for future visit, Transport Mode: Ambulatory, Reason: Pain, No, No, Left flank pain, pp_set_radiology_sub specialty, [facility] Medications What How Much When Why Instructions New valacyclovir (Valtrex 1 g Tab) 1 Tablets By Mouth 2 times a day Recurrent cold sores Refills: 3 Pickup at [id number] Unchanged carvedilol (Coreg 12.5 mg Tab) 1 Tablets By Mouth 2 times a day Pickup at [facility] Pharmacy Information [facility]: [address] [facility] [address] [place], [place] [id number] [phone] [id number]: [address] [place], [place] [id number] [phone] Medications and Immunizations Administered Not Given influenza [...] as told by your doctor. ? Take dpka-fll-qtqqynm and prescription medicines only as told by [...] provider. Document Revised: 01/19/2022 Document Reviewed: 01/19/2022 IdenIve Patient Education ? 2022 [employer]. Darin Mijares [facility] Office/Clini c Noteon 08-16-2023 Family [...] # 50 tab(s), Refills(s) 1, Pharmacy: [facility]/pharmacy #[id number], 154, cm, 08/16/23 7:47:00 EDT, Height/Length Dosing, 77, kg, 08/16/23 7:46:00 EDT, Weight Dosing CT Abdomen/Pelvis w/o Contrast 7. 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 Normal [facility] Comment on above: Result Comment: Elec tronically [...] at home: Medicines ? Take or apply dhiu-rng-fwbcynj and prescription medicines only as told by [...] provider. Document Revised: 08/19/2022 Document Reviewed: 08/19/2022 IdenIve Patient Education ? 2022 [employer]. Orthopedics Muscle Strain A muscle strain, o (more content not included)... Normal [facility] [place] Mamm Screen w/CAD if perf and [...] very important to your health. The current [employer] and National Comprehensive Cancer [...] Angelito Vidal M.D. Transcribed by: CONSTANZA Technologist: [facility] Assessment: BI-RADS Category 2-Benign finding Recommendation: Normal interval follow-up Normal [facility] Consent for Treatmenton 05-23 Consent for Treatment [id number] 30 [id number] #1.00CD:127 Normal [facility] Physician Orderon 06-07-2023 Physician Order [id number] #1.00CD:127 Normal [facility] Auto Diffon 04-30-2023 Basophils/100 WBC (Bld) 0.9 % Normal 0.0-2.0 [facility] Comment on above: Order Comment: Order Added by Giancarlo Expert. Performed By: #### 2 713921, 9973205, 2956838, 0673238, 1217436, 65454067 #### [facility] [address] [place] [address] Basophils/Leukocytes Auto (Bld) [Pure # fraction] 0.0 E9/L Normal 0.0-0.2 [facility] Comment on above: Order Comment: Order Added by Discern Expert. Performed By: #### 2 151380, 8067921, 8777500, 8569746, 9271783, 68868306 #### [facility] [address] [place] [address] 51768 Eosinophils/100 WBC (Bld) 2.7 % Normal 0.0-8.0 [facility] Comment on above: Order Comment: Order Added by Giancarlo Expert. Performed By: #### 2 484837, 3837695, 5154083, 9243839, 1511479, 65781812 #### [facility] [address] [place] [address]383 Eosinophils/Leukocyte s Auto (Bld) [Pure # fraction] 0.1 E9/L Normal 0.0-0.5 [facility] Comment on above: Order Comment: Order Added by Giancarlo Expert. Performed By: #### 2 362518, 6737752, 0899571, 3141991, 2237364, 98724266 #### [facility] [address] [place] [address]874 Lymphocytes/100 WBC (Bld) 31.3 % Normal 14.0-50.0 [facility] Comment on above: Order Comment: Order Added by Giancarlo Expert. Performed By: #### 2 777380, 2111318, 3509757, 1730918, 5846888, 18185472 #### [facility] [address] [place] [address]290 Lymphocytes/Leukocyte s Auto (Bld) [Pure # fraction] 1.2 E9/L Normal 1.0-4.0 [facility] Comment on above: Order Comment: Order Added by Discern Expert. Performed By: #### 2 304915, 2472961, 8907074, 2741610, 3972715, 51614079 #### [facility] [address] [place] [address]891 Monocytes/100 WBC (Bld) 11.7 % Normal 4.0-14.0 [facility] Comment on above: Order Comment: Order Added by Discern Expert. Performed By: #### 2 052752, 9405891, 6228792, 0338915, 1577290, 68713654 #### [facility] [address] [place] [address] Monocytes/Leukocytes Auto (Bld) [Pure # fraction] 0.5 E9/L Normal 0.2-1.0 [facility] Comment on above: Order Comment: Order Added by Giancarlo Expert. Performed By: #### 2 853816, 3004930, 6060243, 7969163, 9405315, 26812604 #### [facility] [address] [place] [address]646 Neutrophils/100 WBC (Bld) 53.4 % Normal 36.0-75.0 [facility] Comment on above: Order Comment: Order Added by Discern Expert. Performed By: #### 2 499250, 9126605, 2035927, 5919957, 3722186, 01515801 #### [facility] [address] [place] [address] 39020 Neutrophils/Leukocyte s Auto (Bld) [Pure # fraction] 2.1 E9/L Normal 2.0-7.5 [facility] Comment on above: Order Comment: Order Added by Discern Expert. Performed By: #### 2 958791, 2219770, 1267899, 2055943, 9332522, 25730712 #### [facility] [address] [place] [address] BMPon 04-30-2023 Anion gap [Moles/Vol] 10 mmol/L Normal 6-16 [facility] Comment on above: Performed By: #### 2 681489, 2404516, 5128457, 3767807, 0155093, 96684492 #### [facility] [address] [place] [address] Calcium [Mass/Vol] 8.9 mg/dL Normal 8.9-11.1 [facility] Comment on above: Performed By: #### 2 589111, 3998059, 0446295, 3911244, 0147972, 66729291 #### [facility] [address] [place] [address] Chloride [Moles/Vol] 107 mmol/L Normal 101-111 [facility] Comment on above: Performed By: #### 2 393125, 0912087, 7325882, 8557776, 0108999, 77894155 #### [facility] [address] [place] [address] CO2 [Moles/Vol] 26 mmol/L Normal 21-31 [facility] Comment on above: Performed By: #### 2 074855, 9307015, 1983871, 8371930, 6565664, 65792302 #### [facility] [address] [place] [address] Creatinine [Mass/Vol] 0.7 mg/dL Normal 0.5-1.3 [facility] Comment on above: Performed By: #### 2 309876, 4498464, 1257632, 3074775, 0541111, 17025537 #### [facility] [address] [place] [address] Glucose [Mass/Vol] 92 mg/dL Normal 55-199 [facility] Comment on above: Result Comment: If t his glucose result represents a fasting glucose, interpretation should refer to the following reference range: 55-99 mg/dL Performed By: #### 2 783032, 7292167, 7737754, 3875053, 1746792, 16406167 #### [facility] [address] [place] [address] Potassium [Moles/Vol] 3.9 mmol/L Normal 3.5-5.3 [facility] Comment on above: Performed By: #### 2 075407, 1510308, 8359752, 6161987, 0733883, 69572785 #### [facility] [address] [place] [address] Sodium [Moles/Vol] 139 mmol/L Normal 135-145 [facility] Comment on above: Performed By: #### 2 051763, 9361618, 6448258, 8914265, 1081339, 01560308 #### [facility] [address] [place] [address] Urea nitrogen [Mass/Vol] 19 mg/dL Normal 5-21 [facility] Comment on above: Performed By: #### 2 025884, 9826321, 1923660, 8310533, 7161771, 99016387 #### [facility] [address] [place] [address] Urea nitrogen/Creatinine [Mass ratio] 27 No Units High 10-20 [facility] Comment on above: Performed By: #### 2 959113, 3944491, 7674243, 3935158, 2383419, 55301302 #### [facility] [address] [place] [address] CBC w/ Auto Diffon 3 Erythrocyte distribution width (RBC) [Ratio] 12.3 % Normal 10.9-14.2 [facility] Comment on above: Performed By: #### 2 009468, 1351014, 2136427, 1588056, 6115147, 49593871 #### [facility] [address] [place] [address] Hematocrit (Bld) [Volume fraction] 35.9 % Normal 34.0-46.0 [facility] Comment on above: Performed By: #### 2 791374, 6989422, 7301919, 5962199, 8006386, 73551671 #### [facility] [address] [place] [address] Hemoglobin (Bld) [Mass/Vol] 12.1 g/dL Normal 12.0-16.0 [facility] Comment on above: Performed By: #### 2 469524, 7910387, 7446359, 8450764, 4047418, 70611456 #### [facility] [address] [place] [address] 52098 MCH (RBC) [Entitic mass] 32.5 pg Normal 27.0-34.0 [facility] Comment on above: Performed By: #### 2 765569, 6626159, 9094471, 3408860, 4618874, 17547557 #### [facility] [address] [place] [address]38 MCHC (RBC) [Mass/Vol] 33.8 g/dL Normal 31.4-36.0 [facility] Comment on above: Performed By: #### 2 670283, 2151600, 3917498, 6389552, 9174908, 49959079 #### [facility] [address] [place], [place] [address] MCV (RBC) [Entitic vol] 96.1 fL Normal 80.0-100.0 [facility] Comment on above: Performed By: #### 2 176360, 9919461, 6003397, 6288655, 4667827, 33411372 #### [facility] [address] [place] [address] 42161 Platelet mean volume (Bld) [Entitic vol] 8.9 fL Normal 6.4-10.8 [facility] Comment on above: Performed By: #### 2 376852, 4062847, 2921306, 2775176, 5332236, 04534426 #### [facility] [address] [place] [address]013 Platelets (Bld) [#/Vol] 186.0 E9/L Normal 150.0-500.0 [facility] Comment on above: Performed By: #### 2 469559, 3522604, 0837448, 1929495, 0318151, 02044671 #### [facility] [address] [place] [address] 20504 RBC (Bld) [#/Vol] 3.7 E12/L Low 4.3-5.9 [facility] Comment on above: Performed By: #### 2 481939, 1573139, 6128085, 3015867, 2050365, 94272774 #### [facility] [address] [place] [address] WBC corrected for nucl RBC Auto (Bld) [#/Vol] 3.9 E9/L Low 4.0-11.0 [facility] Comment on above: Performed By: #### 2 809693, 7389131, 0531200, 9247480, 6470938, 43013351 #### [facility] [address] [place] [address] Consent for Treatmenton Consent for Treatment [id number] 30 [id number] #1.00CD:127 Normal [facility] Hep Func Panelon 04-30-2023 Albumin [Mass/Vol] 3.7 g/dL Normal 3.3-5.0 [facility] Comment on above: Performed By: #### 2 344487, 3231757, 8619960, 4276291, 3547320, 40858528 #### [facility] [address] [place] [address]39 Albumin/Globulin (S) [Mass conc ratio] 1.1 Normal 1.1-2.2 [facility] Comment on above: Performed By: #### 2 293244, 4295831, 3808304, 9829048, 0209416, 07881462 #### [facility] [address] [place] [address] ALP [Catalytic activity/Vol] 78 Int._Unit/L Normal 21-98 [facility] Comment on above: Performed By: #### 2 588126, 4524749, 8497447, 0036124, 1834673, 39565553 #### [facility] [address] [place] [address] ALT No additional P-5'-P [Catalytic activity/Vol] 20 Int._Unit/L Normal 6-46 [facility] Comment on above: Performed By: #### 2 697945, 3649022, 2987078, 1430532, 1513281, 44844003 #### [facility] [address] [place] [address] AST [Catalytic activity/Vol] 23 Int._Unit/L Normal 5-43 [facility] Comment on above: Performed By: #### 2 632761, 4697715, 7465814, 2403113, 3754374, 96871241 #### [facility] [address] [place] [address] Bilirubin [Mass/Vol] 1.0 mg/dL Normal 0.0-1.1 [facility] Comment on above: Performed By: #### 2 472412, 0221025, 8856883, 0930569, 5445801, 48917957 #### [facility] [address] [place] [address] Bilirubin.direct [Mass/Vol] 0.1 mg/dL Normal 0.1-0.4 [facility] Comment on above: Performed By: #### 2 697074, 9071011, 3004904, 1797791, 3822222, 77765659 #### [facility] [address] [place] [address] Bilirubin.indirect [Mass or moles/Vol] 0.9 mg/dL Normal 0.1-0.9 [facility] Comment on above: Performed By: #### 2 454620, 3875095, 4495691, 6267515, 8318421, 02835688 #### [facility] [address] [id number] Globulin (S) [Mass/Vol] 3.5 g/dL Normal 1.4-4.0 [facility] Comment on above: Performed By: #### 2 524852, 5877651, 8127821, 1773706, 3511328, 26044987 #### [facility] [address] [place] [address] Protein [Mass/Vol] 7.2 g/dL Normal 6.0-7.8 [facility] Comment on above: Performed By: #### 2 141835, 8385299, 3036203, 1016702, 3962393, 74313278 #### [facility] [address] [place] [address] Lipid Panelon 04-30-2023 Cholesterol [Mass/Vol] 162 mg/dL Normal 120-200 [facility] Comment on above: Performed By: #### 2 042298, 6252103, 3533273, 0705392, 8187322, 42409682 #### [facility] [address] [place] [address] Cholesterol in HDL [Mass/Vol] 62 mg/dL Invalid Interpretation Code [facility] Comment on above: Result Comment: HDL > or equal to 60 mg/dL: Low cardiovascular risk HDL < 40 mg/dL : High cardiovascular risk Performed By: #### 2 509489, 2242116, 6209909, 9636442, 7876482, 12769716 #### [facility] [address] [place] [address] Cholesterol in LDL [Mass/Vol] 96 mg/dL Normal <=129 [facility] Comment on above: Performed By: #### 2 907270, 3583762, 7545759, 1340127, 1661932, 75556321 #### [facility] [address] [place] [address] Cholesterol in VLDL [Mass/Vol] 8 mg/dL Normal 7-40 [facility] Comment on above: Performed By: #### 2 077992, 1279844, 7161481, 6586061, 5474167, 40200492 #### [facility] [address] [place] [address] Triglyceride [Mass/Vol] 40 mg/dL Normal <=149 [facility] Comment on above: Performed By: #### 2 546875, 4054159, 4459756, 3754710, 5333646, 73233957 #### [facility] [address] [place] [address] eGFRon 04-30-2023 GFR/1.73 sq M.predicted among non-blacks MDRD (S/P/Bld) [Vol rate/Area] 101 mL/min/1.73 m2 Normal >=59 [facility] Comment on above: Order Comment: Order added by Discern Expert. Result Comment: Regional Business Development Manager felipa kidney disease could be indicated at eGFR's of less than 60 mL/min/1.73m2. Kidney failure is indicated at less than 15 mL/min/1.73m2. Performed By: #### 2 757534, 3472464, 8090303, 4896575, 4497516, 57194166 #### [facility] [address] [place] [address] Covid-19 PCR (CVDTB)on 05-22 SARS-CoV-2 (COVID-19) RNA AURA+probe Ql (Unsp spec) Not detected Normal NOT DETECTED [facility] Comment on above: Result Comment: This test is not yet approved or cleared by the [place] FDA. When there are no FDA-approved or cleared tests available, and other criteria are met, FDA can make tests available under an emergency access mechanism called an Emergency Use Authorization (EUA). The EUA for this test is supported by the [place] of Health and Human Service's (HHS's) declaration [...] SARS-CoV-2. Performed By: #### C VDTBH #### [facility] [address] [address] [address] Tomas Chauhan CHEMISTRYOrdered By: SYSTEM SYSTEM [...] 34.5 g/dL Normal 31.4 - 36.0 gm/dL [facility] HemeAutoSS MCV (RBC) [Entitic vol] 99.2 fL [...] 4.5 E9/L Normal 4.0 - 11.0 E9/L [facility] HemeAutoSS Vital Signs Date Time Vital Sign Value Performing Clinician Faci lity 08-16-2023 07:39-0400 Blood Pressure Location Piero MARYANERICA [facility] 08-16-2023 07:39-0400 Body temperature 98.42 [degF] Piero [employer]ARY[employer] [facility] 08-16-2023 07:39-0400 Diastolic blood pressure 82 mm[Hg] Piero MARYANLE [facility] 08-16-2023 07:39-0400 Heart rate 76 /min Piero MARYANLE [facility] 08-16-2023 07:39-0400 Respiratory rate 16 /min Piero MARYANLE [facility] 08-16-2023 07:39-0400 SaO2% (BldA) [Mass fraction] 99 % Piero STEINBERGERICA [facility] 08-16-2023 07:39-0400 Systolic blood pressure 120 mm[Hg] Piero HENDRICKSON [facility] 05-18-2022 10:04-0400 Blood Pressure Location Piero KAPLE [facility] 05-18-2022 10:04-0400 Body temperature 97.88 [degF] Piero KAPLE [facility] 05-18-2022 10:04-0400 Diastolic blood pressure 78 mm[Hg] Piero KAPLE [facility] 05-18-2022 10:04-0400 Heart rate 84 /min Piero KAPLE [facility] 05-18-2022 10:04-0400 Respiratory rate 16 /min Piero KAPLE [facility] 05-18-2022 10:04-0400 SaO2% (BldA) [Mass fraction] 98 % Piero KAPLE [facility] 05-18-2022 10:04-0400 Systolic blood pressure 122 mm[Hg] Piero KAPLE [facility] Encounters Encounter Date Encounter Type Care Provider Facility Start: 08-28-2023 End: 08-29-2023 ambulatory Piero HENDRICKSON Facility:[facility] Start: 08-16-2023 End: 08-17-2023 ambulatory Piero HENDRICKSON Facility:[facility] Start: 08-16-2023 End: 08-16-2023 Patient encounter procedure Piero HENDRICKSON [facility] Start: 08-16-2023 End: 08-16-2023 Well adult monitoring check done Piero HENDRICKSON [facility] Start: 06-11-2023 End: 06-12-2023 ambulatory Jonh Ann Facility:[facility] Start: 04-30-2023 End: 05-01-2023 ambulatory Piero HENDRICKSON Facility:[facility] Start: 06-08-2022 End: 06-08-2022 Patient encounter procedure Jonh Ann [facility] Start: 06-08-2022 Encounter for preprocedural laboratory examination DR ALICE HERRERA [facility] Start: 06-05-2022 End: 06-06-[address] ALICE HERRERA Facility: Start: 06-05-2022 End: 06-06-2022 Encounter for preprocedural laboratory examination DR ALICE HERRERA Facility:[facility] Start: 05-19-2022 End: 05-19-2022 Lab Drop off Jonh Ann [facility] Start: 05-18-2022 End: 05-18-2022 Patient encounter procedure Piero HENDRICKSON [facility] Start: 05-18-2022 End: 05-18-2022 Preprocedural examination done Piero HENDRICKSON [facility] Start: 04-10-2022 End: 04-10-2022 Patient encounter procedure Piero HENDRICKSON [facility] Procedures Date Procedure Procedure Detail Performing Clinician Start: 06-09-2022 Insertion of hip prosthesis Piero HENDRICKSON Comment on above: Dr. Sandeep Samuel Bilateral tubal ligation Sco aracelis KAPLE section Piero HENDRICKSON Colonoscopy Piero KAPLE laparoscopic Piero KAPLE venous blockage Piero KAPLE Immunizations Immunization Date Immunization Notes Care Provider Fa cili 09-03-2022 influenza virus vaccine, unspecified formulation Piero KAPLE [facility] 08-26-2021 influenza virus vaccine, unspecified formulation Piero KAPLE [facility] Comment on above: Result Comment: [facility] 08-22-2020 influenza virus vaccine, unspecified formulation Piero KAPLE [facility] 08-29-2019 influenza virus vaccine, unspecified formulation Piero KAPLE [facility] 08-28-2019 influenza virus vaccine, unspecified formulation Piero KAPLE [facility] 10-18-2017 influenza virus vaccine, unspecified formulation Piero KAPLE [facility] 09-15-2016 influenza virus vaccine, unspecified formulation Piero KAPLE [facility] 09-17-2015 influenza virus vaccine, unspecified formulation Piero KAPLE [facility] 09-11-2014 influenza virus vaccine, unspecified formulation Piero KAPLE [facility] 09-16-2013 influenza virus vaccine, unspecified formulation Piero KAPLE [facility] 11-04-2010 tetanus toxoid, reduced diphtheria toxoid, and acellular pertussis vaccine, adsorbed Piero KAPLE [facility] 03-06-2010 hepatitis A vaccine, adult dosage Piero KAPLE [facility] 03-06-2010 hepatitis B vaccine, pediatric or pediatric/adolescent dosage Piero KAPLE [facility] 11-07-2009 hepatitis B vaccine, pediatric or pediatric/adolescent dosage Piero KAPLE [facility] 09-21-2009 influenza virus vaccine, H1N1, live Piero HENDRICKSON [facility] 09-05-2009 hepatitis A vaccine, adult dosage Piero STEINBERGLE [facility] Primary Care 09-05-2009 hepatitis B vaccine, pediatric or pediatric/adolescent dosage Piero KAPLE [facility] NEGATED: Highlighted row has not occurred!08-16-2023 influenza virus vaccine, unspecified formulation Piero HENDRICKSON [facility] NEGATED: Highlighted row has not occurred!08-16-2023 SARS-CoV-2 mRNA (tozinameran 5y-11y) vaccine Piero HENDRICKSON [facility] Payers Date Payer Category Payer Unknown [id number] 2.16.84 [id number] 1965 Unknown [id number] 2.16.8 [id number] 1965 Unknown [id number] 2.16.8 [id number] 1966 Unknown [id number] 2.16.8 [id number] 1965 Unknown [id number] 2.16.8 [id number] 1958 Private Health Insurance [id number] Social History Date Type Detail Facility Start: 03-07-2021 End: 08-16-2023 Tobacco smoking status Never smoked tobacco (finding) [facility] Tobacco smoking status Never [facility] Sex Assigned At Female [facility] Functional Status Date Assessment Result Facility 08-16-2023 Functional Status N/A [facility] 05-18-2022 Functional Status N/A [facility] Evaluation + Plan note 08-16-2023 Radiology Note Date & Type Note Facility 08-16-2023 Evaluation + Plan note Future Scheduled TestsCT Abdomen/Pelvis w/o Contrast 08/16/23 [facility] Discharge instructions 08-16-2023 Note Date & Type Note Facility 08-16-2023 Hospital Discharg e instructions Patient Education 08/16/2023 08:23:19 Muscle Strain, Wydz-zg-Myef Muscle Strain A muscle strain, or pulled [...] is not too tight. General instructions Take togp-xhv-gkexhtl and prescription medicines only as told by [...] provider. Document Revised: 01/26/2022 Document Reviewed: 01/26/2022 [employer] Patient Education 2022 [employer]. 08/16/2023 08:23:11 Cold Sore, Ifih-vc-Tcht Cold Sore A cold sore, also called [...] instructions at home: Medicines Take or apply iuwr-anx-yoypnfs and prescription medicines only as told by [...] provider. Document Revised: 08/19/2022 Document Reviewed: 08/19/2022 [employer] Patient Education 2022 [employer]. 08/16/2023 08:10:18 Flank Pain, Adult, Rasz-rp-Zutj Flank Pain, Adult Flank pain is pain [...] Rest as told by your doctor. Take szrj-yni-fsfgtnj and prescription medicines only as told by [...] provider. Document Revised: 01/19/2022 Document Reviewed: 01/19/2022 [employer] Patient Education 2022 [employer]. Follow Up Care 04/22/2023 15:20:47 With:EMEKA JAY FAAFP, FAUSTINA Baeza, PED Address: [address] [place] [address] [place] [address]- When:Within 1 Year(s) [facility] Discharge instructions 05-18-2022 Note [...] to take more than one medicine. Take bsrx-gpo-vcmwnrg and prescription medicines only as told by your health care provider. Where to find support Your health care provider can help you prevent hypertension and help you keep your blood pressure at a healthy level. Your local hospital or your community may also provide support services and prevention programs. The [place] [employer] offers an online support network at: http://supportnetwork.heart.org /jjym-sgwsu-cjnuicjh Where to find more information Learn more about hypertension from: National Heart, Lung, and Blood [place]: www.nhlbi.nih.gov/health/health -topics/topics/hbp Centers for Disease Control and Prevention: www.cdc.gov/bloodpressure [employer] [employer]: http://familydoctor.org/familyd octor/en/diseases-conditions/hi qe-niwxh-tszdpxbo.printerview.a ll.html Learn more about the DASH diet from: National Heart, Lung, and Blood [place]: www.nhlbi.nih.gov/health/health -topics/topics/dash Contact a health care provider [...] 11/22/2016 Document Revised: 03/01/2020 Document Reviewed: 07/19/2017 [employer] Patient Education 2020 [employer]. Follow Up Care 05/05/2022 13:24:35 With:Piero HENDRICKSON DO, FAAFP, FAM, PED Address: [address] [place] [address]- When:Within 1 Year(s) [facility] Evaluation + Plan note 05-09-2022 Note Date & Type Note Facility 05-09-2022 Evaluation + Plan note Diagnostic Tests PendingPAP 091307 IG Apt HPV,rfx 16/18,45 05/19/22 [facility] Evaluation + Plan note Note Date & Type Note Facility Evaluation + Plan note No data available for this section [facility] Hospital Discharge instructions Note Date & Type Note Facility Hospital Discharge instructions No data available for this section [facility] Progress note Note Date & Type Note Facility Progress note No data available for this section [facility] Summary Purpose Family History No Family History Records FoundNo Family History Records Found Advance Directives No Advanced Directives Records FoundNo Advanced Directives Records Found Additional Source Comments Care Team (unrecognized sect ion and content) Personnel Name: Piero HENDRICKSON DO, FAAFP Address: [place] [address] Personnel Name: Piero HENDRICKSON DO, FAAFP Address: [place] [address] Personnel Name: Piero HENDRICKSON DO, FAAFP Address: [place] A [address] Personnel Name: Piero HENDRICKSON DO, FAAFP Address: [facility] A [address] Personnel Name: Piero HENDRICKSON DO, FAAFP Address: Address: [place] A [address] INFORMATION SOURCE (unrecogn ized section and content) DATE CREATED AUTHOR 06/11/2022 [facility] DATE CREATED AUTHOR 'S ORGANIZ ATION 08/31/2023 [facility] FOR RECORDS PERTAINING TO PATIENTS [...] BE BASED ON THE PRIMARY CLINICAL RECORDS. [facility]. provides no warranty or guarantee of the accuracy or completeness of information in this document.
== END 2024-04-07 13:01 | disposition home or self-care (01) ==
LOC: VC 13:00
PROVIDERS: PCP Radiology Diagnostic Radiology; Visit Provider Radiology Diagnostic Radiology
DX: I83.813 Varicose veins of bilateral lower extremities with pain (principal)
CPT/HCPCS: 36466

== ENCOUNTER 2024-04-14 08:25 | Outpatient (OUT) | payer OTHER, SELFPAY ==
--- NOTE | 2024-04-14 08:28 | VEIN_ITS ---
Patient Name: KATYA CORONEL MR#: [id number] : 1965 Exam Date: 04/14/2024 Ordering Doctor: DR ODALYS MERIDA M.D. RADIOLOGY REPORT PROCEDURE: VC EXT VENOUS LT LIMITED COMPARISON: VC EXT VENOUS LT LIMITED, 02/22/2024. INDICATIONS: Phlebitis of superficial veins of left lower extremity I80.02 TECHNIQUE: Lower extremity womack scale and Duplex Doppler evaluation of the deep venous system from the inguinal ligament through the calf veins. FINDINGS: REGION: Left lower extremity. THROMBI: Negative for DVT. Chemically induced thrombus in multiple varicose veins. COMPRESSIBILITY: Non-compressible segments corresponding to thrombus FLOW: Areas of no flow corresponding to thrombus OTHER: No significant varicosities remain. CONCLUSION: 1. Successful post ablation occlusion of left leg treated branch saphenous varicosities. Dictated by: Marlo Gomez M.D. on 04/14/2024 at 08:55 Approved by: Marlo Gomez M.D. on 04/14/2024 at 08:56
--- NOTE | 2024-04-14 08:28 | VEIN_ITS ---
Patient Name: KATYA CORONEL MR#: [id number] : 1965 Exam Date: 04/14/2024 Ordering Doctor: DR ODALYS MERIDA M.D. RADIOLOGY REPORT PROCEDURE: [facility] - OFFICE VISIT FOLLOW UP COMPARISON: [facility], 03/31/2024. PROGRESS NOTES: The patient reports improvement in leg symptoms. There has been interval reduction in varicosities. The patient has followed our recommendations to walk 20-30 minutes once or twice per day since the procedure. Physical exam demonstrates decrease in varicosities of the leg. Persistent reticular and spider veins are identified along the lower extremities bilaterally. Review of the ultrasound performed the same day demonstrates occlusive thrombus extending throughout the treated vein(s), see separate report, consistent with a successful ablation. No thrombus extending into or beyond the saphenofemoral junction. The patient expressed a desire to proceed with treatment of remaining reticular and spider veins. The patient was informed that treatment was a process and would require several procedures/sessions. [facility] IM[facility]: 1. Successful ablation of the left leg treated branch saphenous vein(s). 2. Persistent varicose and spider veins and mild lower extremity symptoms. PLAN: 1. Bilateral lower extremity sclerotherapy for reticular and spider veins. Nurse notes, history and physical were reviewed and confirmed, see attached forms. The nurse was present throughout the physical exam and consultation Dictated by: Marlo Gomez M.D. on 04/14/2024 at 08:56 Approved by: Marlo Gomez M.D. on 04/14/2024 at 08:56
== END 2024-04-14 08:26 | disposition home or self-care (01) ==
LOC: VC 08:25
PROVIDERS: PCP Radiology Diagnostic Radiology; Visit Provider Radiology Diagnostic Radiology
DX: I80.02 Phlebitis and thrombophlebitis of superficial vessels of left lower extremity (principal)
CPT/HCPCS: 93971; G0463

== ENCOUNTER 2024-04-21 09:59 | Outpatient (OUT) | payer OTHER, SELFPAY ==
--- NOTE | 2024-04-21 10:00 | VEIN_ITS ---
[address] [address] Patient Name: KATYA CORONEL MRN: [id number] date: 1965 Sex: F Assigned Patient Location: Current Patient Location: Accession/Order Number: [id number] Exam Date: 04/21/2024 10:04 Report Date: 04/21/2024 11:53 At the request of: ODALYS MERIDA Procedure: VC INJ Sclerosing SOLMULT Vein EXAMINATION: VC INJ Sclerosing SOLMULT Vein HISTORY: Pain due to varicose veins of bilateral legs I83.813 The risks and benefits of the procedure were explained at length to the patient and informed written consent was obtained. The procedure was performed under sterile technique. The patient's leg was wrapped with Coban and postprocedural verbal and written instructions provided. Tanner Jacome RN was present and assisted. SCLEROSANT: 2mL 0.5% Polidocanol. VEIN(S) INJECTED: 24 veins in the left leg. VISUALIZATION: Ultrasound was not used to visualize the sclerosant. ANESTHESIA: Supercooled air. COMPLICATIONS: None. Electronically authenticated by: ZEESHAN TUCKER Date: 04/21/2024 11:53
--- OUTSIDE RECORDS SUMMARY | 2024-04-21 10:17 | XMS_ITS | CCD ---
Author Organization [facility] Care Team Providers Care Gastroenterology Technician Name Role Phone Piero HENDRICKSON Primary Care [...] sources) Erythromycin; Translations: [erythromycin] Drug Allergy unknown [facility] (7 sources) Ramipril; Translations: [ramipril] Drug Allergy angioedema [facility] (7 sources) Sulfonamides (Antibiotic); Translations: [sulfa drugs] Drug allergy unknown [facility] (1 source) Angiotensin Converting Enzyme (Ben) Inhibitors Drug allergy (disorder) 11-22-[address] [facility] (1 source) Erythromycin Drug Allergy [facility] (1 source) Sulfonamides (Antibiotic) Drug allergy (disorder) 11-22-[address] [facility] Medications Current Medications Medication Drug [...] BID, # 180 tab(s), Refills(s) 3, Pharmacy: [facility], 154, cm, 12/15/21 15:27:00 EST, Height/Length Dosing, 74.4, kg, 12/15/21 15:27:00 EST, Weight Dosing Start Date: 02/27/22 Status: Ordered cyclobenzaprine hydrochloride 10 mg oral tablet (1 source) Muscle Relaxant Start: 02-25-2022 take 1 tablet by mouth at bedtime cyclobenzaprine 10 mg Tab 10 mg = 1 tab(s), Oral, Bedtime, # 30 tab(s), Refills(s) 1, Pharmacy: [id number], 154, cm, 12/15/21 [...] Spasm, # 50 tab(s), Refills(s) 1, Pharmacy: [facility]/pharmacy #[id number], 154, cm, 08/16/23 [...] BID, # 30 tab(s), Refills(s) 3, Pharmacy: [facility]/pharmacy #[id number], 154, cm, 08/16/23 [...] Oral contrast amount in ml's: 0 Normal [facility] Consent for Treatmenton Consent for Treatment [id number] 31 [id number] #1.00TIFF Normal [facility] Insurance Correspondenceon 0 08-18-2023 Insurance Correspondence [id number] 3#1.00CD:127 Normal [facility] Ambulatory Visit Summaryon 0 08-16-2023 [...] PED When: In 1 year Where: [address], [place] [address]- You Need to Complete the Following CT Abdomen/Pelvis w/o Contrast, 08/16/23, Routine, Order for future visit, Transport Mode: Ambulatory, Reason: Pain, No, No, Left flank pain, pp_set_radiology_sub specialty, [facility] [place] Medications What How Much When Why Instructions New valacyclovir (Valtrex 1 g Tab) 1 Tablets By Mouth 2 times a day Recurrent cold sores Refills: 3 Pickup at [id number] Unchanged carvedilol (Coreg 12.5 mg Tab) 1 Tablets By Mouth 2 times a day Pickup at [facility] Pharmacy Information [facility]: [address] [facility] [address] [place], [place] [id number] [phone] [id number]: [address] [place], [place] [phone] Medications and Immunizations Administered Not Given influenza [...] as told by your doctor. ? Take jikd-uzq-pxzxayu and prescription medicines only as told by [...] provider. Document Revised: 01/19/2022 Document Reviewed: 01/19/2022 [employer] Patient Education ? 2022 [employer] Darin Mijares [facility] Family Medicine Office/Clini c Noteon 08-16-2023 [...] Spasm, # 50 tab(s), Refills(s) 1, Pharmacy: [facility]/pharmacy #[id number], 154, cm, 08/16/23 7:47:00 EDT, Height/Length Dosing, 77, kg, 08/16/23 7:46:00 EDT, Weight Dosing CT Abdomen/Pelvis w/o Contrast 7. 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 Normal [facility] Comment on above: Result Comment: [...] at home: Medicines ? Take or apply jdud-hok-mhdcmhm and prescription medicines only as told by [...] provider. Document Revised: 08/19/2022 Document Reviewed: 08/19/2022 [employer]TISSUELAB Patient Education ? 2022 [employer] Orthopedics Muscle Strain A muscle strain, o (more content not included)... Normal [facility] [place] Mamm Screen w/CAD if [...] very important to your health. The current [employer] and National Comprehensive Cancer [...] Angelito Vidal M.D. Transcribed by: CONSTANZA Technologist: [facility] Assessment: BI-RADS Category 2-Benign finding Recommendation: Normal interval follow-up Normal [facility] Consent for Treatmenton 05-23 Consent for Treatment [id number] 30 [id number] #1.00CD:127 Normal [facility] Physician Orderon 06-07-2023 Physician Order [id number] #1.00CD:127 Normal [facility] Auto Diffon 04-30-2023 Basophils/100 WBC (Bld) 0.9 % Normal 0.0-2.0 [facility] Comment on above: Order Comment: Order Added by Discern Expert. Performed By: #### 2 792951, 5561062, 6489432, 4595421, 2299848, 63694914 #### [facility] [address] [place] [address] Basophils/Leukocytes Auto (Bld) [Pure # fraction] 0.0 E9/L Normal 0.0-0.2 [facility] Comment on above: Order Comment: Order Added by Discern Expert. Performed By: #### 2 500729, 0360026, 0588311, 6905128, 4899336, 97104048 #### [facility] [address] [place] [address] Eosinophils/100 WBC (Bld) 2.7 % Normal 0.0-8.0 [facility] Comment on above: Order Comment: Order Added by Discern Expert. Performed By: #### 2 586296, 8607705, 5697011, 6285432, 3481234, 27985870 #### [facility] [address] [place] [address] Eosinophils/Leukocyte s Auto (Bld) [Pure # fraction] 0.1 E9/L Normal 0.0-0.5 [facility] Comment on above: Order Comment: Order Added by Discern Expert. Performed By: #### 2 660427, 3963998, 6899718, 6772274, 3420516, 35593942 #### [facility] [address] [place] [address] Lymphocytes/100 WBC (Bld) 31.3 % Normal 14.0-50.0 [facility] Comment on above: Order Comment: Order Added by Discern Expert. Performed By: #### 2 010014, 6003610, 4157554, 7245832, 5356658, 05182616 #### [facility] [address] [place] [address] Lymphocytes/Leukocyte s Auto (Bld) [Pure # fraction] 1.2 E9/L Normal 1.0-4.0 [facility] Comment on above: Order Comment: Order Added by Discern Expert. Performed By: #### 2 263223, 0426733, 4993900, 5368197, 1490462, 95342344 #### [facility] [address] [place] [address] Monocytes/100 WBC (Bld) 11.7 % Normal 4.0-14.0 [facility] Comment on above: Order Comment: Order Added by Discern Expert. Performed By: #### 2 606949, 7774096, 5831322, 1590615, 2279751, 29297518 #### [facility] [address] [place] [address] Monocytes/Leukocytes Auto (Bld) [Pure # fraction] 0.5 E9/L Normal 0.2-1.0 [facility] Comment on above: Order Comment: Order Added by Giancarlo Expert. Performed By: #### 2 801936, 6274092, 4150294, 2233825, 1417783, 61696478 #### [facility] [address] [place] [address] Neutrophils/100 WBC (Bld) 53.4 % Normal 36.0-75.0 [facility] Comment on above: Order Comment: Order Added by Discern Expert. Performed By: #### 2 076489, 2860498, 1275878, 2140335, 9277495, 85830550 #### [facility] [address] [place] [address] Neutrophils/Leukocyte s Auto (Bld) [Pure # fraction] 2.1 E9/L Normal 2.0-7.5 [facility] Comment on above: Order Comment: Order Added by Giancarlo Expert. Performed By: #### 2 867305, 7078738, 6082363, 2876816, 0211094, 87822080 #### [facility] [address] [place] [address] BMPon 04-30-2023 Anion gap [Moles/Vol] 10 mmol/L Normal 6-[address] [facility] Comment on above: Performed By: #### 2 487071, 7686983, 6204304, 5903720, 8890593, 21995839 #### [facility] [address] [place] [address] Calcium [Mass/Vol] 8.9 mg/dL Normal 8.9-11.1 [facility] Comment on above: Performed By: #### 2 230926, 5152003, 6062237, 6719444, 7876255, 70292518 #### [facility] [address] [place] [address] Chloride [Moles/Vol] 107 mmol/L Normal 101-111 [facility] Comment on above: Performed By: #### 2 149843, 6186975, 0266367, 5022565, 9790913, 70160664 #### [facility] [address] [place] [address] CO2 [Moles/Vol] 26 mmol/L Normal 21-31 [facility] Comment on above: Performed By: #### 2 932491, 0739356, 0494608, 5922684, 1177118, 87350888 #### [facility] [address] [place] [address] Creatinine [Mass/Vol] 0.7 mg/dL Normal 0.5-1.[address] [facility] Comment on above: Performed By: #### 2 450057, 1444865, 7756123, 5110217, 7007740, 27071711 #### [facility] [address] [place] [address] Glucose [Mass/Vol] 92 mg/dL Normal 55-199 [facility] Comment on above: Result Comment: If t his glucose result represents a fasting glucose, interpretation should refer to the following reference range: 55-99 mg/dL Performed By: #### 2 280680, 7928034, 0943124, 9634405, 5835609, 07167957 #### [facility] [address] [place] [address] Potassium [Moles/Vol] 3.9 mmol/L Normal 3.5-5.[address] [facility] Comment on above: Performed By: #### 2 712305, 9209637, 0479836, 4226137, 5414274, 39817902 #### [facility] [address] [place] [address] Sodium [Moles/Vol] 139 mmol/L Normal 135-145 [facility] Comment on above: Performed By: #### 2 243032, 1256467, 1488959, 8783959, 0769111, 69779484 #### [facility] [address] [place] [address] Urea nitrogen [Mass/Vol] 19 mg/dL Normal 5-21 [facility] Comment on above: Performed By: #### 2 114092, 3869078, 2922184, 4301612, 1295896, 04703629 #### [facility] [address] [place] [address] Urea nitrogen/Creatinine [Mass ratio] 27 No Units High 10-20 [facility] Comment on above: Performed By: #### 2 845304, 4115834, 8967113, 6167366, 7990873, 22682591 #### [facility] [address] [place] [address] CBC w/ Auto Diffon 3 Erythrocyte distribution width (RBC) [Ratio] 12.3 % Normal 10.9-14.2 [facility] Comment on above: Performed By: #### 2 650704, 0538431, 9844880, 6566265, 4523075, 67229750 #### [facility] [address] [place] [address] Hematocrit (Bld) [Volume fraction] 35.9 % Normal 34.0-46.0 [facility] Comment on above: Performed By: #### 2 418574, 4721166, 4511679, 4464074, 1080805, 72313349 #### [facility] [address] [place] [address] Hemoglobin (Bld) [Mass/Vol] 12.1 g/dL Normal 12.0-16.0 [facility] Comment on above: Performed By: #### 2 334077, 5088421, 9117150, 7854308, 0038932, 69181258 #### [facility] [address] [place], [place] [address] MCH (RBC) [Entitic mass] 32.5 pg Normal 27.0-34.0 [facility] Comment on above: Performed By: #### 2 648757, 0817253, 4191427, 4318228, 6591165, 53333406 #### [facility] [address] [place] [address] MCHC (RBC) [Mass/Vol] 33.8 g/dL Normal 31.4-36.[address] [facility] Comment on above: Performed By: #### 2 423777, 0703146, 1991633, 8103383, 6569061, 90210268 #### [facility] [address] [place] [address] MCV (RBC) [Entitic vol] 96.1 fL Normal 80.0-100.0 [facility] Comment on above: Performed By: #### 2 205942, 8144328, 3046741, 0232305, 0709328, 23702323 #### [facility] [address] [place], [place] [address] Platelet mean volume (Bld) [Entitic vol] 8.9 fL Normal 6.4-10.8 [facility] Comment on above: Performed By: #### 2 182873, 3619126, 7346342, 8166510, 5466821, 38085860 #### [facility] [address] [place] [address] Platelets (Bld) [#/Vol] 186.0 E9/L Normal 150.0-500.0 [facility] Comment on above: Performed By: #### 2 033643, 7029368, 7760768, 3631714, 0744025, 43921150 #### [facility] [address] [place] [address] RBC (Bld) [#/Vol] 3.7 E12/L Low 4.3-5.9 [facility] Comment on above: Performed By: #### 2 944023, 5288718, 7442021, 2368482, 4247394, 51041704 #### [facility] [address] [place] [address] WBC corrected for nucl RBC Auto (Bld) [#/Vol] 3.9 E9/L Low 4.0-11.0 [facility] Comment on above: Performed By: #### 2 352976, 3440596, 6192444, 2054223, 1510449, 41978938 #### [facility] [address] [place] [address] Consent for Treatmenton Consent for Treatment [id number] 30 [id number] #1.00CD:127 Normal [facility] Hep Func Panelon 04-30-2023 Albumin [Mass/Vol] 3.7 g/dL Normal 3.3-5.0 [facility] Comment on above: Performed By: #### 2 372033, 9428428, 9952012, 8362319, 8352359, 01864773 #### [facility] [address] [place] [address] Albumin/Globulin (S) [Mass conc ratio] 1.1 Normal 1.1-2.2 [facility] Comment on above: Performed By: #### 2 901117, 4167777, 7444301, 1075810, 9568088, 83621148 #### [facility] [address] [place] [address] ALP [Catalytic activity/Vol] 78 Int._Unit/L Normal 21-98 [facility] Comment on above: Performed By: #### 2 132952, 5168780, 0701679, 0746682, 9641531, 53698404 #### [facility] [address] [place] [address] ALT No additional P-5'-P [Catalytic activity/Vol] 20 Int._Unit/L Normal 6-46 [facility] Comment on above: Performed By: #### 2 826642, 8624647, 3968977, 2420620, 8992691, 24862240 #### [facility] [address] [place] [address] AST [Catalytic activity/Vol] 23 Int._Unit/L Normal 5-43 [facility] Comment on above: Performed By: #### 2 730424, 7297482, 9200652, 5126906, 2309443, 93065229 #### [facility] [address] [place] [address] Bilirubin [Mass/Vol] 1.0 mg/dL Normal 0.0-1.1 [facility] Comment on above: Performed By: #### 2 664438, 9700973, 3112912, 9722559, 7871398, 59707736 #### [facility] [address] [id number] Bilirubin.direct [Mass/Vol] 0.1 mg/dL Normal 0.1-0.4 [facility] Comment on above: Performed By: #### 2 205368, 3865322, 8104972, 7436738, 2070251, 73957186 #### [facility] [address] [place] [address] Bilirubin.indirect [Mass or moles/Vol] 0.9 mg/dL Normal 0.1-0.9 [facility] Comment on above: Performed By: #### 2 510951, 5603938, 3885543, 6283751, 0674791, 87094067 #### [facility] [address] [place] [address] Globulin (S) [Mass/Vol] 3.5 g/dL Normal 1.4-4.0 [facility] Comment on above: Performed By: #### 2 300275, 5400008, 2897735, 3150461, 5936348, 86079399 #### [facility] [address] [place] [address] Protein [Mass/Vol] 7.2 g/dL Normal 6.0-7.8 [facility] Comment on above: Performed By: #### 2 429553, 2629147, 6279487, 0188105, 3841749, 29891664 #### [facility] [address] [place] [address] Lipid Panelon 04-30-2023 Cholesterol [Mass/Vol] 162 mg/dL Normal 120-200 [facility] Comment on above: Performed By: #### 2 800955, 2123851, 0227922, 4316527, 6671285, 99558296 #### [facility] [address] [place] [address] Cholesterol in HDL [Mass/Vol] 62 mg/dL Invalid Interpretation Code [facility] Comment on above: Result Comment: HDL > or equal to 60 mg/dL: Low cardiovascular risk HDL < 40 mg/dL : High cardiovascular risk Performed By: #### 2 275171, 9851880, 5893015, 8203327, 1956963, 11009705 #### [facility] [address] [place] [address] Cholesterol in LDL [Mass/Vol] 96 mg/dL Normal <=129 [facility] Comment on above: Performed By: #### 2 061823, 1407138, 4747558, 5747700, 1840613, 13294182 #### [facility] [address] [place] [address] Cholesterol in VLDL [Mass/Vol] 8 mg/dL Normal 7-40 [facility] Comment on above: Performed By: #### 2 722551, 1975023, 8007012, 4527628, 1663751, 98660260 #### [facility] [address] [place] [address] Triglyceride [Mass/Vol] 40 mg/dL Normal <=149 [facility] Comment on above: Performed By: #### 2 186038, 1158747, 3355855, 0419286, 3459032, 01585318 #### [facility] [address] [place] [address] eGFRon 04-30-2023 GFR/1.73 sq M.predicted among non-blacks MDRD (S/P/Bld) [Vol rate/Area] 101 mL/min/1.73 m2 Normal >=59 [facility] Comment on above: Order Comment: Order added by Discern Expert. Result Comment: Regional Sales Director felipa kidney disease could be indicated at eGFR's of less than 60 mL/min/1.73m2. Kidney failure is indicated at less than 15 mL/min/1.73m2. Performed By: #### 2 369742, 0137214, 7071339, 6663092, 1263165, 46524457 #### [facility] [address] [place] [address] Covid-19 PCR (CVDTB)on 05-22 SARS-CoV-2 (COVID-19) RNA AURA+probe Ql (Unsp spec) Not detected Normal NOT DETECTED [facility] Comment on above: Result Comment: This test is not yet approved or cleared by the [place] FDA. When there are no FDA-approved or cleared tests available, and other criteria are met, FDA can make tests available under an emergency access mechanism called an Emergency Use Authorization (EUA). The EUA for this test is supported by the [place] of Health and Human Service's (HHS's) declaration [...] Performed By: #### C VDTBH #### [facility] [address] [address] [address] Tomas Chauhan CHEMISTRYOrdered By: SYSTEM SYSTEM [...] 34.5 g/dL Normal 31.4 - 36.0 gm/dL FT HemeAutoSS MCV (RBC) [Entitic vol] 99.2 fL [...] 4.5 E9/L Normal 4.0 - 11.0 E9/L FT HemeAutoSS Vital Signs Date Time Vital Sign Value Performing Clinician Faci lity 08-16-2023 07:39-0400 Blood Pressure Location Piero STEINBERGTaege[facility] 08-16-2023 07:39-0400 Body temperature 98.42 [degF] Piero [facility] 08-16-2023 07:39-0400 Diastolic blood pressure 82 mm[Hg] Piero MARYANLE [facility] 08-16-2023 07:39-0400 Heart rate 76 /min Piero STEINBERGLE [facility] 08-16-2023 07:39-0400 Respiratory rate 16 /min Piero [facility] [employer] 08-16-2023 07:39-0400 SaO2% (BldA) [Mass fraction] 99 % Piero [facility] 08-16-2023 07:39-0400 Systolic blood pressure 120 mm[Hg] Piero [facility] 05-18-2022 10:04-0400 Blood Pressure Location Piero KAPLE [facility] 05-18-2022 10:04-0400 Body temperature 97.88 [degF] Piero KAPLE [facility] 05-18-2022 10:04-0400 Diastolic blood pressure 78 mm[Hg] Piero KAPLE [facility] 05-18-2022 10:04-0400 Heart rate 84 /min Piero KAPLE [facility] 05-18-2022 10:04-0400 Respiratory rate 16 /min Piero STEINBERGLE [facility] 05-18-2022 10:04-0400 SaO2% (BldA) [Mass fraction] 98 % Piero KAPLE [facility] 05-18-2022 10:04-0400 Systolic blood pressure 122 mm[Hg] Piero STEINBERGLE [facility] Encounters Encounter Date Encounter Type Care Provider Facility Start: 08-28-2023 End: 08-29-2023 ambulatory Piero HENDRICKSON [facility] Start: 08-16-2023 End: 08-17-2023 ambulatory Piero HENDRICKSON Facility:[facility] Start: 08-16-2023 End: 08-16-2023 Patient encounter procedure Piero HENDRICKSON [facility] Start: 08-16-2023 End: 08-16-2023 Well adult monitoring check done Piero HENDRICKSON [facility] Start: 06-11-2023 End: 06-12-2023 ambulatory Jonh Ann Facility:[facility] Start: 04-30-2023 End: 05-01-2023 ambulatory Piero HENDRICKSON [facility] Start: 06-08-2022 End: 06-08-2022 Patient encounter procedure Jonh Ann [facility] Start: 06-08-2022 Encounter for preprocedural laboratory examination DR ALICE HERRERA [facility] Start: 06-05-2022 End: 06-06-[address] ALICE HERRERA Facility: Start: 06-05-2022 End: 06-06-2022 Encounter for preprocedural laboratory examination DR ALICE HERRERA Facility: Start: 05-19-2022 End: 05-19-2022 Lab Drop off Jonh Ann [facility] Start: 05-18-2022 End: 05-18-2022 Patient encounter procedure Piero HENDRICKSON [facility] Start: 05-18-2022 End: 05-18-2022 Preprocedural examination done Piero HENDRICKSON [facility] Start: 04-10-2022 End: 04-10-2022 Patient encounter procedure Piero HENDRICKSON [facility] Procedures Date Procedure Procedure Detail Performing Clinician Start: 06-09-2022 Insertion of hip prosthesis Piero HENDRICKSON Comment on above: Dr. Sandeep Samuel Bilateral tubal ligation Screbecca HENDRICKSON section Piero HENDRICKSON Colonoscopy Piero KAPLE laparoscopic Piero KAPLE venous blockage Piero KAPLE Immunizations Immunization Date Immunization Notes Care Provider Orlin lopez 09-03-2022 influenza virus vaccine, unspecified formulation Piero KAPLE [facility] 08-26-2021 influenza virus vaccine, unspecified formulation Piero KAPLE [facility] Comment on above: Result Comment: [facility] 08-22-2020 influenza virus vaccine, unspecified formulation Piero KAPLE [facility] 08-29-2019 influenza virus vaccine, unspecified formulation Piero KAPLE [facility] 08-28-2019 influenza virus vaccine, unspecified formulation Piero KAPLE [facility] 10-18-2017 influenza virus vaccine, unspecified formulation Piero KAPLE [facility] 09-15-2016 influenza virus vaccine, unspecified formulation Piero KAPLE [facility] 09-17-2015 influenza virus vaccine, unspecified formulation Piero KAPLE [facility] 09-11-2014 influenza virus vaccine, unspecified formulation Piero KAPLE [facility] 09-16-2013 influenza virus vaccine, unspecified formulation Piero KAPLE [facility] 11-04-2010 tetanus toxoid, reduced diphtheria toxoid, and acellular pertussis vaccine, adsorbed Piero KAPLE [facility] 03-06-2010 hepatitis A vaccine, adult dosage Piero STEINBERGLE [facility] 03-06-2010 hepatitis B vaccine, pediatric or pediatric/adolescent dosage Piero KAPLE [facility] 11-07-2009 hepatitis B vaccine, pediatric or pediatric/adolescent dosage Piero KAPLE [facility] 09-21-2009 influenza virus vaccine, H1N1, live Piero HENDRICKSON [facility] 09-05-2009 hepatitis A vaccine, adult dosage Piero HENDRICKSON [facility] 09-05-2009 hepatitis B vaccine, pediatric or pediatric/adolescent dosage Piero SETINBERGLE [facility] NEGATED: Highlighted row has not occurred!08-16-2023 influenza virus vaccine, unspecified formulation Piero HENDRICKSON [facility] NEGATED: Highlighted row has not occurred!08-16-2023 SARS-CoV-2 mRNA (tozinameran 5y-11y) vaccine Piero HENDRICKSON [facility] Payers Date Payer Category Payer Unknown [id number] 2.16.84 [id number] 1965 Unknown [id number] 2.16.8 [id number] 1965 Unknown [id number] 2.16.8 [id number] 1966 Unknown [id number] 2.16.8 [id number] 1965 Unknown [id number] 1958 Private Health Insurance [id number] Social History Date Type Detail Facility Start: 03-07-2021 End: 08-16-2023 Tobacco smoking status Never smoked tobacco (finding) [facility] Tobacco smoking status Never [facility] Sex Assigned At Female [facility] Functional Status Date Assessment Result Facility 08-16-2023 Functional Status N/A [facility] 05-18-2022 Functional Status N/A [facility] Evaluation + Plan note 08-16-2023 Radiology Note Date & Type Note Facility 08-16-2023 Evaluation + Plan note Future Scheduled TestsCT Abdomen/Pelvis w/o Contrast 08/16/23 [facility] Hospital Discharge instructions 08-16-2023 Note Date & Type Note Facility 08-16-2023 Hospital Discharg e instructions Patient Education 08/16/2023 08:23:19 Muscle Strain, Llsq-sh-Svlu Muscle Strain A muscle strain, or pulled [...] is not too tight. General instructions Take lbbj-gom-bymqfda and prescription medicines only as told by [...] provider. Document Revised: 01/26/2022 Document Reviewed: 01/26/2022 [employer] Patient Education 2022 [employer] 08/16/2023 08:23:11 Cold Sore, Uacd-ad-Mqlm Cold Sore A cold sore, also called [...] instructions at home: Medicines Take or apply hbps-hmu-cmwgvem and prescription medicines only as told by [...] provider. Document Revised: 08/19/2022 Document Reviewed: 08/19/2022 [employer] Patient Education 2022 [employer] 08/16/2023 08:10:18 Flank Pain, Adult, Osfq-wc-Bsdt Flank Pain, Adult Flank pain is pain [...] Rest as told by your doctor. Take kamr-ork-eryzxmn and prescription medicines only as told by [...] provider. Document Revised: 01/19/2022 Document Reviewed: 01/19/2022 [employer] Patient Education 2022 [employer] Follow Up Care 04/22/2023 15:20:47 With:EMEKA JAY FAAFP, FAUSTINA Baeza, PED Address: [address] [place] [address] [place] [address]- When:Within 1 Year(s) [facility] Hospital Discharge instructions 05-18-2022 [...] to take more than one medicine. Take qazw-ayj-ufioljv and prescription medicines only as told by your health care provider. Where to find support Your health care provider can help you prevent hypertension and help you keep your blood pressure at a healthy level. Your local hospital or your community may also provide support services and prevention programs. The [place] [employer] offers an online support network at: http://supportnetwork.heart.org /ktkm-zbtlg-xmotyemw Where to find more information Learn more about hypertension from: National Heart, Lung, and Blood [place]: www.nhlbi.nih.gov/health/health -topics/topics/hbp Centers for Disease Control and Prevention: www.cdc.gov/bloodpressure [place] [employer]: http://familydoctor.org/familyd octor/en/diseases-conditions/hi ba-rcpim-obihigyw.printerview.robert zayas.html Learn more about the DASH diet from: National Heart, Lung, and Blood [place]: www.nhlbi.nih.gov/health/health -topics/topics/dash Contact a health care provider [...] 11/22/2016 Document Revised: 03/01/2020 Document Reviewed: 07/19/2017 [employer] Patient Education 2020 [employer] Follow Up Care 05/05/2022 13:24:35 With:Piero HENDRICKSON DO, FAAFP, FAUSTINA, PED Address: [address] [place] [address]- When:Within 1 Year(s) [facility] Evaluation + Plan note 05-09-2022 Note Date & Type Note Facility 05-09-2022 Evaluation + Plan note Diagnostic Tests PendingPAP [id number] IG Apt HPV,rfx 16/18,45 05/19/22 [facility] Evaluation + Plan note Note Date & Type Note Facility Evaluation + Plan note No data available for this section [facility] Hospital Discharge instructions Note Date & Type Note Facility Hospital Discharge instructions No data available for this section [facility] Progress note Note Date & Type Note Facility Progress note No data available for this section [facility] Summary Purpose Family History No Family History Records FoundNo Family History Records Found Advance Directives No Advanced Directives Records FoundNo Advanced Directives Records Found Additional Source Comments Care Team (unrecognized sect ion and content) Personnel Name: Piero HENDRICKSON DO, FAAFP Address: [facility] [address] Personnel Name: Piero HENDRICKSON DO, FAAFP Address: [address] [facility] [address] Personnel Name: Piero HENDRICKSON DO, FAAFP Address: [facility] [address] Personnel Name: Piero HENDRICKSON DO, FAAFP Address: [address] [facility] [address] Personnel Name: Piero HENDRICKSON DO, FAAFP Address: Address: [facility] [address] INFORMATION SOURCE (unrecogn ized section and content) DATE CREATED AUTHOR 06/11/2022 [facility] DATE CREATED AUTHOR 'S TERRY BOWLING 08/31/2023 [facility] FOR RECORDS PERTAINING TO PATIENTS [...] THE PRIMARY CLINICAL RECORDS. [facility] [employer] provides no warranty or guarantee of the accuracy or completeness of information in this document.
== END 2024-04-21 10:00 | disposition home or self-care (01) ==
LOC: VC 09:59
PROVIDERS: PCP Radiology Diagnostic Radiology; Visit Provider Radiology Diagnostic Radiology
DX: I83.813 Varicose veins of bilateral lower extremities with pain (principal)
CPT/HCPCS: 36471

== ENCOUNTER 2024-04-25 07:25 | Outpatient (OUT) | payer OTHER, SELFPAY ==
--- NOTE | 2024-04-25 07:27 | VEIN_ITS ---
[address] [address] Patient Name: KATYA CORONEL MRN: [id number] date: 1965 Sex: F Assigned Patient Location: Current Patient Location: Accession/Order Number: [id number] Exam Date: 04/25/2024 07:30 Report Date: 04/25/2024 09:31 At the request of: ODALYS MERIDA Procedure: VC INJ Sclerosing SOLMULT Vein EXAMINATION: VC INJ Sclerosing SOLMULT Vein HISTORY: Pain due to varicose veins of bilateral legs I83.813 The risks and benefits of the procedure were explained at length to the patient and informed written consent was obtained. The procedure was performed under sterile technique. The patient's leg was wrapped with Coban and postprocedural verbal and written instructions provided. Tanner Jacome RN was present and assisted. SCLEROSANT: 2mL 0.5% Polidocanol. VEIN(S) INJECTED: 22 veins in the right leg. VISUALIZATION: Ultrasound was not used to visualize the sclerosant. ANESTHESIA: Supercooled air. COMPLICATIONS: None. Electronically authenticated by: ZEESHAN TUCKER Date: 04/25/2024 09:31
--- OUTSIDE RECORDS SUMMARY | 2024-04-25 07:27 | XMS_ITS | CCD ---
Author Organization [facility] Care Team Providers Care Players Assistant Name Role Phone Piero HENDRICKSON Primary Care [...] Translations: [erythromycin] Drug Allergy unknown [facility] (7 sources) Ramipril; Translations: [ramipril] Drug Allergy angioedema [facility] (7 sources) Sulfonamides (Antibiotic); Translations: [sulfa drugs] Drug allergy unknown [facility] (1 source) Angiotensin Converting Enzyme (Ben) Inhibitors Drug allergy (disorder) 11-22-2014 [facility] (1 source) Erythromycin Drug Allergy [facility] (1 source) Sulfonamides (Antibiotic) Drug allergy (disorder) 11-22-2014 [facility] Medications Current Medications Medication Drug Class(es) [...] BID, # 180 tab(s), Refills(s) 3, Pharmacy: [facility], 154, cm, 12/15/21 15:27:00 EST, Height/Length Dosing, 74.4, kg, 12/15/21 15:27:00 EST, Weight Dosing Start Date: 02/27/22 Status: Ordered cyclobenzaprine hydrochloride 10 mg oral tablet (1 source) Muscle Relaxant Start: 02-25-2022 take 1 tablet by mouth at bedtime cyclobenzaprine 10 mg Tab 10 mg = 1 tab(s), Oral, Bedtime, # 30 tab(s), Refills(s) 1, Pharmacy: [facility] #[id number], 154, cm, 12/15/21 15:27:00 EST, Height/Length [...] Spasm, # 50 tab(s), Refills(s) 1, Pharmacy: [facility] #[id number], 154, cm, 08/16/23 7:47:00 EDT, Height/Length [...] BID, # 30 tab(s), Refills(s) 3, Pharmacy: [facility]acy #[id number], 154, cm, 08/16/23 7:47:00 EDT, Height/Length [...] Oral contrast amount in ml's: 0 Normal [facility] Consent for Treatmenton Consent for Treatment [id number] 31 [id number] #1.00TIFF Normal [facility] Insurance Correspondenceon 0 08-18-2023 Insurance Correspondence [id number]#1.00CD:127 Normal [facility] Ambulatory Visit Summaryon 0 08-16-2023 Ambulatory [...] PED When: In 1 year Where: [address] [facility] [address], [place] [address]- You Need to Complete the Following CT Abdomen/Pelvis w/o Contrast, 08/16/23, Routine, Order for future visit, Transport Mode: Ambulatory, Reason: Pain, No, No, Left flank pain, pp_set_radiology_sub specialty, [facility] Medications What How Much When Why Instructions New valacyclovir (Valtrex 1 g Tab) 1 Tablets By Mouth 2 times a day Recurrent cold sores Refills: 3 Pickup at [id number] Unchanged carvedilol (Coreg 12.5 mg Tab) 1 Tablets By Mouth 2 times a day Pickup at [facility] Pharmacy Information [facility]: [address] [facility] [address] [place] [id number] [phone] [id number]: [address] [place], [place] [id number] [phone] Medications and Immunizations Administered Not Given influenza [...] as told by your doctor. ? Take fnua-nyg-gikeuie and prescription medicines only as told by [...] provider. Document Revised: 01/19/2022 Document Reviewed: 01/19/2022 [employer] Patient Education ? 2022 [employer]. [facility] Office/Clini c Noteon 08-16-2023 [...] Spasm, # 50 tab(s), Refills(s) 1, Pharmacy: [id number], 154, cm, 08/16/23 7:47:00 EDT, Height/Length Dosing, 77, kg, 08/16/23 7:46:00 EDT, Weight Dosing CT Abdomen/Pelvis w/o Contrast 7. 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 Normal [facility] Comment on above: Result Comment: Elec [...] at home: Medicines ? Take or apply wpci-duu-hzwcxgi and prescription medicines only as told by [...] provider. Document Revised: 08/19/2022 Document Reviewed: 08/19/2022 [employer] Patient Education ? 2022 [employer] Orthopedics Muscle Strain A muscle strain, o (more content not included)... Normal [facility] [place] Mamm Screen w/CAD if perf [...] very important to your health. The current [employer] and National Comprehensive Cancer [...] Angelito Vidal M.D. Transcribed by: CONSTANZA Technologist: [facility] Assessment: BI-RADS Category 2-Benign finding Recommendation: Normal interval follow-up Normal [facility] Consent for Treatmenton 05-23 Consent for Treatment [id number] 30 [id number] #1.00CD:127 Normal [facility] Physician Orderon 06-07-2023 Physician Order [id number] #1.00CD:127 Normal [facility] Auto Diffon 04-30-2023 Basophils/100 WBC (Bld) 0.9 % Normal 0.0-2.0 [facility] Comment on above: Order Comment: Order Added by Discern Expert. Performed By: #### 2 149182, 1621621, 1203299, 5286428, 6688061, 44722415 #### [facility] [address] [place] [address] Basophils/Leukocytes Auto (Bld) [Pure # fraction] 0.0 E9/L Normal 0.0-0.2 [facility] Comment on above: Order Comment: Order Added by Discern Expert. Performed By: #### 2 949445, 2154530, 8745329, 9689245, 3266855, 95361327 #### [facility] [address] [place] [address] 67773 Eosinophils/100 WBC (Bld) 2.7 % Normal 0.0-8.0 [facility] Comment on above: Order Comment: Order Added by Discern Expert. Performed By: #### 2 778790, 8125398, 4799659, 7348497, 6022096, 80062930 #### [facility] [address] [place] [address] Eosinophils/Leukocyte s Auto (Bld) [Pure # fraction] 0.1 E9/L Normal 0.0-0.5 [facility] Comment on above: Order Comment: Order Added by Discern Expert. Performed By: #### 2 590460, 6908814, 9470835, 8810206, 5168324, 47517525 #### [facility] [address] [place] [address]324 Lymphocytes/100 WBC (Bld) 31.3 % Normal 14.0-50.0 [facility] Comment on above: Order Comment: Order Added by Discern Expert. Performed By: #### 2 593459, 7670345, 4279048, 0976813, 3051369, 60605137 #### [facility] [address] [place] [address] 53725 Lymphocytes/Leukocyte s Auto (Bld) [Pure # fraction] 1.2 E9/L Normal 1.0-4.0 [facility] Comment on above: Order Comment: Order Added by Discern Expert. Performed By: #### 2 097128, 9697814, 6415757, 5959189, 1979697, 65678666 #### [facility] [address] [place] [address] Monocytes/100 WBC (Bld) 11.7 % Normal 4.0-14.0 [facility] Comment on above: Order Comment: Order Added by Discern Expert. Performed By: #### 2 850015, 1252166, 6228943, 2413343, 3374823, 59774072 #### [facility] [address] [place] [address] Monocytes/Leukocytes Auto (Bld) [Pure # fraction] 0.5 E9/L Normal 0.2-1.0 [facility] Comment on above: Order Comment: Order Added by Giancarlo Expert. Performed By: #### 2 755917, 3093918, 7818540, 2065256, 4643071, 40741476 #### [facility] [address] [place] [address] Neutrophils/100 WBC (Bld) 53.4 % Normal 36.0-75.0 [facility] Comment on above: Order Comment: Order Added by Discern Expert. Performed By: #### 2 121753, 3750191, 9677593, 1874487, 2461404, 92361481 #### [facility] [address] [place] [address] 83580 Neutrophils/Leukocyte s Auto (Bld) [Pure # fraction] 2.1 E9/L Normal 2.0-7.5 [facility] Comment on above: Order Comment: Order Added by Giancarlo Expert. Performed By: #### 2 983879, 8745707, 1496133, 0719199, 3528359, 00830980 #### [facility] [address] [place] [address] BMPon 04-30-2023 Anion gap [Moles/Vol] 10 mmol/L Normal 6-16 [facility] Comment on above: Performed By: #### 2 991437, 6923150, 3284681, 1935579, 0587245, 20192458 #### [facility] [address] [place] [address] Calcium [Mass/Vol] 8.9 mg/dL Normal 8.9-11.1 [facility] Comment on above: Performed By: #### 2 223102, 5916110, 0862746, 5803939, 2139996, 77871429 #### [facility] [address] [place] [address] Chloride [Moles/Vol] 107 mmol/L Normal 101-111 [facility] Comment on above: Performed By: #### 2 360398, 5032676, 9533985, 5500840, 9822718, 53853368 #### [facility] [address] [place] [address] CO2 [Moles/Vol] 26 mmol/L Normal 21-31 [facility] Comment on above: Performed By: #### 2 418616, 9761203, 9477269, 2224373, 6454504, 24220223 #### [facility] [address] [place] [address] Creatinine [Mass/Vol] 0.7 mg/dL Normal 0.5-1.3 [facility] Comment on above: Performed By: #### 2 461616, 7020129, 0866209, 9984846, 0268848, 63921623 #### [facility] [address] [place] [address] Glucose [Mass/Vol] 92 mg/dL Normal 55-199 [facility] Comment on above: Result Comment: If t his glucose result represents a fasting glucose, interpretation should refer to the following reference range: 55-99 mg/dL Performed By: #### 2 435756, 8250110, 0452437, 2726874, 7137834, 58992735 #### [facility] [address] [place] [address] Potassium [Moles/Vol] 3.9 mmol/L Normal 3.5-5.3 [facility] Comment on above: Performed By: #### 2 397974, 5652550, 8210152, 1613357, 2175034, 81889705 #### [facility] [address] [place] [address] Sodium [Moles/Vol] 139 mmol/L Normal 135-145 [facility] Comment on above: Performed By: #### 2 118679, 0251175, 0697196, 1400662, 7453989, 27213277 #### [facility] [address] [place] [address] Urea nitrogen [Mass/Vol] 19 mg/dL Normal 5-21 [facility] Comment on above: Performed By: #### 2 807589, 3841994, 0415471, 9985679, 8375796, 43814252 #### [facility] [address] [place] [address] Urea nitrogen/Creatinine [Mass ratio] 27 No Units High 10-20 [facility] Comment on above: Performed By: #### 2 145724, 1461889, 7661707, 3597713, 0177753, 06291024 #### [facility] [address] [place] [address] CBC w/ Auto Diffon 3 Erythrocyte distribution width (RBC) [Ratio] 12.3 % Normal 10.9-14.2 [facility] Comment on above: Performed By: #### 2 669424, 6666253, 4021360, 5441800, 4705680, 49598100 #### [facility] [address] [place] [address] Hematocrit (Bld) [Volume fraction] 35.9 % Normal 34.0-46.0 [facility] Comment on above: Performed By: #### 2 605317, 5615713, 3921298, 0380576, 4317671, 85954253 #### [facility] [address] [place] [address] Hemoglobin (Bld) [Mass/Vol] 12.1 g/dL Normal 12.0-16.0 [facility] Comment on above: Performed By: #### 2 126608, 0982340, 5613336, 0548525, 8743303, 79846677 #### [facility] [address] [place], [place] [address] MCH (RBC) [Entitic mass] 32.5 pg Normal 27.0-34.0 [facility] Comment on above: Performed By: #### 2 385523, 5908070, 5999352, 1399398, 7734710, 20541976 #### [facility] [address] [place] [address] MCHC (RBC) [Mass/Vol] 33.8 g/dL Normal 31.4-36.0 [facility] Comment on above: Performed By: #### 2 209099, 1422664, 3450906, 3005958, 5760037, 65791671 #### [facility] [address] [place] [address] MCV (RBC) [Entitic vol] 96.1 fL Normal 80.0-100.0 [facility] Comment on above: Performed By: #### 2 462534, 4866490, 8183582, 0195515, 4940147, 06788852 #### [facility] [address] [place], [place] [address] Platelet mean volume (Bld) [Entitic vol] 8.9 fL Normal 6.4-10.8 [facility] Comment on above: Performed By: #### 2 550613, 3021659, 3051909, 3607743, 2263968, 05406913 #### [facility] [address] [place] [address] Platelets (Bld) [#/Vol] 186.0 E9/L Normal 150.0-500.0 [facility] Comment on above: Performed By: #### 2 290246, 3533172, 7782651, 3111931, 0857084, 31887056 #### [facility] [address] [place] [address] RBC (Bld) [#/Vol] 3.7 E12/L Low 4.3-5.9 [facility] Comment on above: Performed By: #### 2 583608, 0374721, 6380685, 0899421, 1745325, 97268201 #### [facility] [address] [place] [address] WBC corrected for nucl RBC Auto (Bld) [#/Vol] 3.9 E9/L Low 4.0-11.0 [facility] Comment on above: Performed By: #### 2 998342, 5757658, 5579612, 4014104, 9047803, 64467421 #### [facility] [address] [place] [address] Consent for Treatmenton Consent for Treatment [id number] 30 [id number] #1.00CD:127 Normal [facility] Hep Func Panelon 04-30-2023 Albumin [Mass/Vol] 3.7 g/dL Normal 3.3-5.0 [facility] Comment on above: Performed By: #### 2 217632, 7894601, 8327100, 7151702, 6937628, 07249316 #### [facility] [address] [place] [address] Albumin/Globulin (S) [Mass conc ratio] 1.1 Normal 1.1-2.2 [facility] Comment on above: Performed By: #### 2 864079, 7967705, 0873413, 0685947, 4275265, 19048220 #### [facility] [address] [place] [address] ALP [Catalytic activity/Vol] 78 Int._Unit/L Normal 21-98 [facility] Comment on above: Performed By: #### 2 748769, 9321040, 0866683, 8037706, 1955705, 37222695 #### [facility] [address] [place] [address] ALT No additional P-5'-P [Catalytic activity/Vol] 20 Int._Unit/L Normal 6-46 [facility] Comment on above: Performed By: #### 2 932068, 1001545, 7371022, 5931060, 1395900, 30307323 #### [facility] [address] [place] [address] AST [Catalytic activity/Vol] 23 Int._Unit/L Normal 5-43 [facility] Comment on above: Performed By: #### 2 270273, 6710610, 0577483, 5779703, 9647137, 44744451 #### [facility] [address] [place] [address] Bilirubin [Mass/Vol] 1.0 mg/dL Normal 0.0-1.1 [facility] Comment on above: Performed By: #### 2 691985, 4280571, 4392927, 5461863, 0703258, 11246628 #### [facility] [address] [address] Bilirubin.direct [Mass/Vol] 0.1 mg/dL Normal 0.1-0.4 [facility] Comment on above: Performed By: #### 2 803477, 8869620, 0692601, 0434437, 2320725, 90411670 #### [facility] [address] [place] [address] Bilirubin.indirect [Mass or moles/Vol] 0.9 mg/dL Normal 0.1-0.9 [facility] Comment on above: Performed By: #### 2 722560, 8558604, 1899964, 1056405, 3571134, 35360927 #### [facility] [address] [place] [address] Globulin (S) [Mass/Vol] 3.5 g/dL Normal 1.4-4.0 [facility] Comment on above: Performed By: #### 2 881148, 4009111, 5539294, 3464053, 6387164, 13272230 #### [facility] [address] [place] [address] Protein [Mass/Vol] 7.2 g/dL Normal 6.0-7.8 [facility] Comment on above: Performed By: #### 2 215249, 5197500, 7923868, 9863364, 1322213, 87190000 #### [facility] [address] [place] [address] Lipid Panelon 04-30-2023 Cholesterol [Mass/Vol] 162 mg/dL Normal 120-200 [facility] Comment on above: Performed By: #### 2 304251, 0351788, 9012178, 4733256, 0385124, 18230856 #### [facility] [address] [place] [address] Cholesterol in HDL [Mass/Vol] 62 mg/dL Invalid Interpretation Code [facility] Comment on above: Result Comment: HDL > or equal to 60 mg/dL: Low cardiovascular risk HDL < 40 mg/dL : High cardiovascular risk Performed By: #### 2 138421, 5627784, 8588201, 1911338, 3613550, 29052279 #### [facility] [address] [place] [address] Cholesterol in LDL [Mass/Vol] 96 mg/dL Normal <=129 [facility] Comment on above: Performed By: #### 2 946113, 0117247, 0512976, 5704196, 3509763, 77498232 #### [facility] [address] [place] [address] Cholesterol in VLDL [Mass/Vol] 8 mg/dL Normal 7-40 [facility] Comment on above: Performed By: #### 2 616988, 8192583, 6911343, 3049055, 1556317, 08044070 #### [facility] [address] [place] [address] Triglyceride [Mass/Vol] 40 mg/dL Normal <=149 [facility] Comment on above: Performed By: #### 2 106633, 2201132, 7954636, 8039760, 0171241, 96295557 #### [facility] [address] [place] [address] eGFRon 04-30-2023 GFR/1.73 sq M.predicted among non-blacks MDRD (S/P/Bld) [Vol rate/Area] 101 mL/min/1.73 m2 Normal >=59 [facility] Comment on above: Order Comment: Order added by Discern Expert. Result Comment: Philosophy Specialist felipa kidney disease could be indicated at eGFR's of less than 60 mL/min/1.73m2. Kidney failure is indicated at less than 15 mL/min/1.73m2. Performed By: #### 2 557624, 9388529, 3694185, 8263488, 1730470, 20526876 #### [facility] [address] [place] [address] Covid-19 PCR (CVDTB)on 05-22 SARS-CoV-2 (COVID-19) RNA AURA+probe Ql (Unsp spec) Not detected Normal NOT DETECTED [facility] Comment on above: Result Comment: This test is not yet approved or cleared by the [place] FDA. When there are no FDA-approved or cleared tests available, and other criteria are met, FDA can make tests available under an emergency access mechanism called an Emergency Use Authorization (EUA). The EUA for this test is supported by the [place] of Health and Human Service's (HHS's) declaration [...] SARS-CoV-2. Performed By: #### C VDTBH #### [facility] [address] [address] [address] Tomas Chauhan CHEMISTRYOrdered By: SYSTEM SYSTEM [...] lity 08-16-2023 07:39-0400 Blood Pressure Location Piero [facility] 08-16-2023 07:39-0400 Body temperature 98.42 [degF] [facility] 08-16-2023 07:39-0400 Diastolic blood pressure 82 mm[Hg] Piero MARYANLE [facility] 08-16-2023 07:39-0400 Heart rate 76 /min Piero STEINBERGLE [facility] 08-16-2023 07:39-0400 Respiratory rate 16 /min Piero KliqueLE [facility] 08-16-2023 07:39-0400 SaO2% (BldA) [Mass fraction] 99 % [facility] 08-16-2023 07:39-0400 Systolic blood pressure 120 mm[Hg] Piero [facility] 05-18-2022 10:04-0400 Blood Pressure Location Piero KAPLE [facility] 05-18-2022 10:04-0400 Body temperature 97.88 [degF] Piero KAPLE [facility] 05-18-2022 10:04-0400 Diastolic blood pressure 78 mm[Hg] Piero KAPLE [facility] 05-18-2022 10:04-0400 Heart rate 84 /min Piero KAPLE [facility] 05-18-2022 10:04-0400 Respiratory rate 16 /min Piero STEINBERGLE [facility] 05-18-2022 10:04-0400 SaO2% (BldA) [Mass fraction] 98 % Piero KAPLE [facility] 05-18-2022 10:04-0400 Systolic blood pressure 122 mm[Hg] Piero STEINBERGLE [facility] Encounters Encounter Date Encounter Type Care Provider Facility Start: 08-28-2023 End: 08-29-2023 ambulatory Piero HENDRICKSON Facility:[facility] Start: 08-16-2023 End: 08-17-2023 ambulatory Piero HENDRICKSON Facility:[facility] Start: 08-16-2023 End: 08-16-2023 Patient encounter procedure Piero HENDRICKSON [facility] Start: 08-16-2023 End: 08-16-2023 Well adult monitoring check done Piero HENDRICKSON [facility] Start: 06-11-2023 End: 06-12-2023 ambulatory Jonh Ann Facility:[facility] Start: 04-30-2023 End: 05-01-2023 ambulatory Piero HENDRICKSON Facility:[facility] Start: 06-08-2022 End: 06-08-2022 Patient encounter procedure Jonh Ann [facility] Start: 06-08-2022 Encounter for preprocedural laboratory examination DR ALICE HERRERA [facility] Start: 06-05-2022 End: 06-06-[address] ALICE HERRERA Facility: Start: 06-05-2022 End: 06-06-2022 Encounter for preprocedural laboratory examination DR ALICE HERRERA Facility: Start: 05-19-2022 End: 05-19-2022 Lab Drop off Jonh Ann [facility] Start: 05-18-2022 End: 05-18-2022 Patient encounter procedure Piero HENDRICKSON [facility] Start: 05-18-2022 End: 05-18-2022 Preprocedural examination done Piero HENDRICKSON [facility] Start: 04-10-2022 End: 04-10-2022 Patient encounter procedure Piero HENDRICKSON [facility] Procedures Date Procedure Procedure Detail Performing Clinician Start: 06-09-2022 Insertion of hip prosthesis Piero HENDRICKSON Comment on above: Dr. Sandeep Samuel Bilateral tubal ligation Screbecca HENDRICKSON section Piero HENDRICKSON Colonoscopy Piero KAPLE laparoscopic Piero KAPLE venous blockage Piero KAPLE Immunizations Immunization Date Immunization Notes Care Provider Orlin lopez 09-03-2022 influenza virus vaccine, unspecified formulation Piero KAPLE [facility] 08-26-2021 influenza virus vaccine, unspecified formulation Piero KAPLE [facility] Comment on above: Result Comment: [facility] 08-22-2020 influenza virus vaccine, unspecified formulation Piero KAPLE [facility] 08-29-2019 influenza virus vaccine, unspecified formulation Piero KAPLE [facility] 08-28-2019 influenza virus vaccine, unspecified formulation Piero KAPLE [facility] 10-18-2017 influenza virus vaccine, unspecified formulation Piero KAPLE [facility] 09-15-2016 influenza virus vaccine, unspecified formulation Piero KAPLE [facility] 09-17-2015 influenza virus vaccine, unspecified formulation Piero KAPLE [facility] 09-11-2014 influenza virus vaccine, unspecified formulation Piero KAPLE [facility] 09-16-2013 influenza virus vaccine, unspecified formulation Piero KAPLE [facility] 11-04-2010 tetanus toxoid, reduced diphtheria toxoid, and acellular pertussis vaccine, adsorbed Piero KAPLE [facility] 03-06-2010 hepatitis A vaccine, adult dosage Piero STEINBERGLE [facility] 03-06-2010 hepatitis B vaccine, pediatric or pediatric/adolescent dosage Piero KAPLE [facility] 11-07-2009 hepatitis B vaccine, pediatric or pediatric/adolescent dosage Piero KAPLE [facility] 09-21-2009 influenza virus vaccine, H1N1, live Piero HENDRICKSON [facility] 09-05-2009 hepatitis A vaccine, adult dosage Piero HENDRICKSON [facility] 09-05-2009 hepatitis B vaccine, pediatric or pediatric/adolescent dosage Piero STEINBERGLE [facility] NEGATED: Highlighted row has not occurred!08-16-2023 influenza virus vaccine, unspecified formulation Piero HENDRICKSON [facility] NEGATED: Highlighted row has not occurred!08-16-2023 SARS-CoV-2 mRNA (tozinameran 5y-11y) vaccine Piero HENDRICKSON [facility] Payers Date Payer Category Payer Unknown [id number] 2.16.84 [id number] 1965 Unknown [id number] 2.16.8 [id number] 1966 Unknown [id number] 2.16.8 [id number] 1966 Unknown [id number] 2.16.8 [id number] 1966 Unknown [id number] 2.16.8 [id number] 1958 Private Health Insurance [id number] Social History Date Type Detail Facility Start: 03-07-2021 End: 08-16-2023 Tobacco smoking status Never smoked tobacco (finding) [facility] Tobacco smoking status Never [facility] Sex Assigned At Female [facility] Functional Status Date Assessment Result Facility 08-16-2023 Functional Status N/A [facility] 05-18-2022 Functional Status N/A [facility] Evaluation + Plan note 08-16-2023 Radiology Note Date & Type Note Facility 08-16-2023 Evaluation + Plan note Future Scheduled TestsCT Abdomen/Pelvis w/o Contrast 08/16/23 [facility] Hospital Discharge instructions 08-16-2023 Note Date & Type Note Facility 08-16-2023 Hospital Discharg e instructions Patient Education 08/16/2023 08:23:19 Muscle Strain, Okle-zt-Gkhj Muscle Strain A muscle strain, or pulled [...] is not too tight. General instructions Take qsyc-bvo-manaxpa and prescription medicines only as told by [...] provider. Document Revised: 01/26/2022 Document Reviewed: 01/26/2022 [employer] Patient Education 2022 [employer]. 08/16/2023 08:23:11 Cold Sore, Nfoo-ee-Wgnz Cold Sore A cold sore, also called [...] instructions at home: Medicines Take or apply seoz-zpz-sbryjcs and prescription medicines only as told by [...] provider. Document Revised: 08/19/2022 Document Reviewed: 08/19/2022 [employer] Patient Education 2022 [employer] 08/16/2023 08:10:18 Flank Pain, Adult, Nfqc-sc-[place]aho Flank Pain, Adult Flank pain is pain [...] Rest as told by your doctor. Take gonx-uir-pbbtogl and prescription medicines only as told by [...] provider. Document Revised: 01/19/2022 Document Reviewed: 01/19/2022 [employer] Patient Education 2022 [employer]. Follow Up Care 04/22/2023 15:20:47 With:EMEKA JAY FAAFP, FAUSTINA Baeza, PED Address: [address] [place] [address] [place] [address]- When:Within 1 Year(s) [facility] Discharge instructions 05-18-2022 Note [...] to take more than one medicine. Take xfhx-nfh-axmusao and prescription medicines only as told by your health care provider. Where to find support Your health care provider can help you prevent hypertension and help you keep your blood pressure at a healthy level. Your local hospital or your community may also provide support services and prevention programs. The [employer] offers an online support network at: http://supportnetwork.heart.org /yhtu-rdthi-dqpystrm Where to find more information Learn more about hypertension from: National Heart, Lung, and Blood [place]: www.nhlbi.nih.gov/health/health -topics/topics/hbp Centers for Disease Control and Prevention: www.cdc.gov/bloodpressure [employer]: http://familydoctor.org/familyd octor/en/diseases-conditions/hi ci-okefa-ipzyqfap.printerview.robert zayas.html Learn more about the DASH diet from: National Heart, Lung, and Blood [place]: www.nhlbi.nih.gov/health/health -topics/topics/dash Contact a health care provider [...] 11/22/2016 Document Revised: 03/01/2020 Document Reviewed: 07/19/2017 [employer] Patient Education 2020 [employer]. Follow Up Care 05/05/2022 13:24:35 With:Piero HENDRICKSON DO, FAAFP, FAUSTINA, PED Address: [address] [place] [address]- When:Within 1 Year(s) [facility] Evaluation + Plan note 05-09-2022 Note Date & Type Note Facility 05-09-2022 Evaluation + Plan note Diagnostic Tests PendingPAP 736192 IG Apt HPV,rfx 16/18,45 05/19/22 [facility] Evaluation + Plan note Note Date & Type Note Facility Evaluation + Plan note No data available for this section [facility] Discharge instructions Note Date & Type Note Facility Hospital Discharge instructions No data available for this section [facility] Progress note Note Date & Type Note Facility Progress note No data available for this section [facility] Summary Purpose Family History No Family History Records FoundNo Family History Records Found Advance Directives No Advanced Directives Records FoundNo Advanced Directives Records Found Additional Source Comments Care Team (unrecognized sect ion and content) Personnel Name: Piero HENDRICKSON DO, FAAFP Address: [address] [facility] [address] Personnel Name: Piero HENDRICKSON DO, FAAFP Address: [address] [facility] [address] Personnel Name: Piero HENDRICKSON DO, FAAFP Address: [address] [facility] [address] Personnel Name: Piero HENDRICKSON DO, FAAFP Address: [address] [facility] [address] Personnel Name: Piero HENDRICKSON DO, FAAFP Address: Address: [address] [facility] [address] INFORMATION SOURCE (unrecogn ized section and content) DATE CREATED AUTHOR 06/11/2022 [facility] DATE CREATED AUTHOR 'S TERRY BOWLING 08/31/2023 [facility] FOR RECORDS PERTAINING TO PATIENTS WHO ARE [...] BE BASED ON THE PRIMARY CLINICAL RECORDS. [facility] [employer] provides no warranty or guarantee of the accuracy or completeness of information in this document.
== END 2024-04-25 07:26 | disposition home or self-care (01) ==
PROVIDERS: PCP Radiology Diagnostic Radiology; Visit Provider Radiology Diagnostic Radiology
DX: I83.813 Varicose veins of bilateral lower extremities with pain (principal)
CPT/HCPCS: 36471

== ENCOUNTER 2024-05-04 07:55 | Outpatient (OUT) | payer OTHER, SELFPAY ==
--- NOTE | 2024-05-04 07:56 | VEIN_ITS ---
[address] [address] Patient Name: KATYA CORONEL MRN: [id number] date: 1965 Sex: F Assigned Patient Location: Current Patient Location: Accession/Order Number: [id number] Exam Date: 05/04/2024 07:57 Report Date: 05/04/2024 09:07 At the request of: ODALYS MERIDA Procedure: VC INJ Sclerosing SOLMULT Vein EXAMINATION: VC INJ Sclerosing SOLMULT Vein HISTORY: I83.813 Bilateral leg painful varicose veins COMPARISON: No relevant comparison available. TECHNIQUE: The risks and benefits of the procedure were explained at length to the patient and informed written consent was obtained. Tanner Jacome was present and assisted. The procedure was performed under sterile technique. The patient's leg was wrapped with Coban and postprocedural verbal and written instructions provided. SCLEROSANT: 4 cc, 0.5% polidocanol VEIN(S) INJECTED: 27 veins in the left leg VISUALIZATION: Ultrasound was not used to visualize the sclerosant ANESTHESIA: Supercooled air COMPLICATIONS: None VEIN/VC INJ Sclerosing SOLMULT Vein IMPRESSION: Technically successful sclerotherapy as described Electronically authenticated by: ODALYS MERIDA Date: 05/04/2024 09:07
--- OUTSIDE RECORDS SUMMARY | 2024-05-04 07:58 | XMS_ITS | CCD ---
Author Organization [facility] Care Team Providers Care Warp Worker Name Role Phone Piero HENDRICKSON Primary Care Physician SHARON, DR JENKINS Attending Unavailable SHRAON, DR JENKINS Consulting Unavailable SHARON, DR JENKINS [...] sources) Erythromycin; Translations: [erythromycin] Drug Allergy unknown [facility] (7 sources) Ramipril; Translations: [ramipril] Drug Allergy angioedema [facility] (7 sources) Sulfonamides (Antibiotic); Translations: [sulfa drugs] Drug allergy unknown [facility] (1 source) Angiotensin Converting Enzyme (Ben) Inhibitors Drug allergy (disorder) 11-22-2014 [facility] Rep[facility] (1 source) Erythromycin Drug Allergy [facility] Rep[facility] (1 source) Sulfonamides (Antibiotic) Drug allergy (disorder) 11-22-2014 [facility] Rep[facility] Medications Current Medications Medication Drug Class(es) [...] BID, # 180 tab(s), Refills(s) 3, Pharmacy: [facility], 154, cm, 12/15/21 15:27:00 EST, Height/Length Dosing, 74.4, kg, 12/15/21 15:27:00 EST, Weight Dosing Start Date: 02/27/22 Status: Ordered cyclobenzaprine hydrochloride 10 mg oral tablet (1 source) Muscle Relaxant Start: 02-25-2022 take 1 tablet by mouth at bedtime cyclobenzaprine 10 mg Tab 10 mg = 1 tab(s), Oral, Bedtime, # 30 tab(s), Refills(s) 1, Pharmacy: [facility]/pharmacy #[id number], 154, cm, 12/15/21 15:27:00 EST, [...] 50 tab(s), Refills(s) 1, Pharmacy: [facility]/pharmacy #[id number], 154, cm, 08/16/23 7:47:00 EDT, [...] 30 tab(s), Refills(s) 3, Pharmacy: [facility]/pharmacy #[id number], 154, cm, 08/16/23 7:47:00 EDT, [...] Oral contrast amount in ml's: 0 Normal [facility] Consent for Treatmenton Consent for Treatment [id number] 31 [id number] #1.00TIFF Normal [facility] Insurance Correspondenceon 0 08-18-2023 Insurance Correspondence [id number]#1.00CD:127 Normal [facility] Ambulatory Visit Summaryon 0 08-16-2023 Ambulatory [...] PED When: In 1 year Where: [address] [facility] [facility], [place] [address]- You Need to Complete the Following CT Abdomen/Pelvis w/o Contrast, 08/16/23, Routine, Order for future visit, Transport Mode: Ambulatory, Reason: Pain, No, No, Left flank pain, pp_set_radiology_sub specialty, [facility] [place] Medications What How Much When Why Instructions New valacyclovir (Valtrex 1 g Tab) 1 Tablets By Mouth 2 times a day Recurrent cold sores Refills: 3 Pickup at [id number] Unchanged carvedilol (Coreg 12.5 mg Tab) 1 Tablets By Mouth 2 times a day Pickup at [facility] Pharmacy Information [facility]: [address] [facility] [address] [place], [place] [id number] [phone] [id number]: [address] [place], [place] [id number] [phone] Medications and Immunizations Administered Not Given influenza [...] as told by your doctor. ? Take iaob-sxq-pqnxhvq and prescription medicines only as told by [...] provider. Document Revised: 01/19/2022 Document Reviewed: 01/19/2022 [employer], Patient Education ? 2022 [employer]. Darin M[facility]ares [facility] Family Medicine Office/Clini c Noteon [...] 50 tab(s), Refills(s) 1, Pharmacy: [facility]/pharmacy #[id number], 154, cm, 08/16/23 7:47:00 EDT, Height/Length Dosing, 77, kg, 08/16/23 7:46:00 EDT, Weight Dosing CT Abdomen/Pelvis w/o Contrast 7. 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 Normal [facility] Comment on above: Result Comment: Elec [...] at home: Medicines ? Take or apply pest-jij-ticlpzt and prescription medicines only as told by [...] provider. Document Revised: 08/19/2022 Document Reviewed: 08/19/2022 [email or web address] Patient Education ? 2022 [employer] Orthopedics Muscle Strain A muscle strain, o (more content not included)... Normal [facility] [place] Mamm Screen w/CAD if perf [...] very important to your health. The current [employer] and National Comprehensive Cancer [...] 2-Benign finding Recommendation: Normal interval follow-up Normal [facility] Consent for Treatmenton 05-23 Consent for Treatment [id number] 30 [id number] #1.00CD:127 Normal [facility] Physician Orderon 06-07-2023 Physician Order [id number] #1.00CD:127 Normal [facility] Auto Diffon 04-30-2023 Basophils/100 WBC (Bld) 0.9 % Normal 0.0-2.0 [facility] Comment on above: Order Comment: Order Added by Discern Expert. Performed By: #### 2 599527, 1050394, 0104058, 3677938, 8350344, [id number] #### [facility] [address] [place] [address] Basophils/Leukocytes Auto (Bld) [Pure # fraction] 0.0 E9/L Normal 0.0-0.2 [facility] Comment on above: Order Comment: Order Added by Discern Expert. Performed By: #### 2 774666, 4915677, 8604428, 1041676, 0143596, 05524828 #### [facility] [address] [place] [address] Eosinophils/100 WBC (Bld) 2.7 % Normal 0.0-8.0 [facility] Comment on above: Order Comment: Order Added by Discern Expert. Performed By: #### 2 138787, 1148241, 0493699, 6531743, 6117049, 51953534 #### [facility] [address] [place] [address] Eosinophils/Leukocyte s Auto (Bld) [Pure # fraction] 0.1 E9/L Normal 0.0-0.5 [facility] Comment on above: Order Comment: Order Added by Discern Expert. Performed By: #### 2 180912, 4276167, 6474633, 5083582, 6643958, 38167445 #### [facility] [address] [place] [address] Lymphocytes/100 WBC (Bld) 31.3 % Normal 14.0-50.0 [facility] Comment on above: Order Comment: Order Added by Discern Expert. Performed By: #### 2 042503, 8955297, 9589008, 0888631, 9787066, 50411030 #### [facility] [address] [place] [address] Lymphocytes/Leukocyte s Auto (Bld) [Pure # fraction] 1.2 E9/L Normal 1.0-4.0 [facility] Comment on above: Order Comment: Order Added by Discern Expert. Performed By: #### 2 497277, 2305601, 7360384, 7315219, 1846716, 37372903 #### [facility] [address] [place] [address] Monocytes/100 WBC (Bld) 11.7 % Normal 4.0-14.0 [facility] Comment on above: Order Comment: Order Added by Discern Expert. Performed By: #### 2 506991, 2519912, 9002052, 6597352, 0744138, 01084074 #### [facility] [address] [place] [address] Monocytes/Leukocytes Auto (Bld) [Pure # fraction] 0.5 E9/L Normal 0.2-1.0 [facility] Comment on above: Order Comment: Order Added by Giancarlo Expert. Performed By: #### 2 514496, 6401261, 4250869, 4393474, 4311791, 54647715 #### [facility] [address] [place] [address] Neutrophils/100 WBC (Bld) 53.4 % Normal 36.0-75.0 [facility] Comment on above: Order Comment: Order Added by Discern Expert. Performed By: #### 2 303378, 5569151, 9940703, 8138824, 3272008, 52364088 #### [facility] [address] [place] [address] Neutrophils/Leukocyte s Auto (Bld) [Pure # fraction] 2.1 E9/L Normal 2.0-7.5 [facility] Comment on above: Order Comment: Order Added by Giancarlo Expert. Performed By: #### 2 481874, 9896620, 9213795, 5370899, 3486604, 09834972 #### [facility] [address] [place] [address] BMPon 04-30-2023 Anion gap [Moles/Vol] 10 mmol/L Normal 6-16 [facility] Comment on above: Performed By: #### 2 785033, 1148474, 0021679, 5190505, 1593314, 94208337 #### [facility] [address] [place] [address] Calcium [Mass/Vol] 8.9 mg/dL Normal 8.9-11.1 [facility] Comment on above: Performed By: #### 2 958063, 2706990, 4780540, 0853498, 1088238, 99178118 #### [facility] [address] [place] [address] Chloride [Moles/Vol] 107 mmol/L Normal 101-111 [facility] Comment on above: Performed By: #### 2 106132, 6199198, 4397236, 6193888, 1058113, 41950160 #### [facility] [address] [place] [address] CO2 [Moles/Vol] 26 mmol/L Normal 21-31 [facility] Comment on above: Performed By: #### 2 662379, 4353209, 6394536, 3352095, 2916874, 30474173 #### [facility] [address] [place] [address] Creatinine [Mass/Vol] 0.7 mg/dL Normal 0.5-1.3 [facility] Comment on above: Performed By: #### 2 086077, 4266045, 0015822, 3614713, 0333492, 22177786 #### [facility] [address] [place] [address] Glucose [Mass/Vol] 92 mg/dL Normal 55-199 [facility] Comment on above: Result Comment: If t his glucose result represents a fasting glucose, interpretation should refer to the following reference range: 55-99 mg/dL Performed By: #### 2 860780, 8760619, 4921244, 7236006, 2816034, 38565207 #### [facility] [address] [place] [address] Potassium [Moles/Vol] 3.9 mmol/L Normal 3.5-5.3 [facility] Comment on above: Performed By: #### 2 443075, 3044093, 6919208, 8374292, 2830514, 43934635 #### [facility] [address] [place] [address] Sodium [Moles/Vol] 139 mmol/L Normal 135-145 [facility] Comment on above: Performed By: #### 2 733750, 0180191, 7400812, 2130417, 7416624, 07116116 #### [facility] [address] [place] [address] Urea nitrogen [Mass/Vol] 19 mg/dL Normal 5-21 [facility] Comment on above: Performed By: #### 2 833206, 4802994, 8529133, 0119511, 0386266, 52686409 #### [facility] [address] [place] [address] Urea nitrogen/Creatinine [Mass ratio] 27 No Units High 10-20 [facility] Comment on above: Performed By: #### 2 625641, 6218632, 8237718, 7400709, 3184465, 15000336 #### [facility] [address] [place] [address] CBC w/ Auto Diffon 3 Erythrocyte distribution width (RBC) [Ratio] 12.3 % Normal 10.9-14.2 [facility] Comment on above: Performed By: #### 2 762831, 1270797, 1397936, 0512779, 0335625, 03277406 #### [facility] [address] [place] [address] Hematocrit (Bld) [Volume fraction] 35.9 % Normal 34.0-46.0 [facility] Comment on above: Performed By: #### 2 201699, 9313241, 9077070, 9151161, 9150378, 58739360 #### [facility] [address] [place] [address] Hemoglobin (Bld) [Mass/Vol] 12.1 g/dL Normal 12.0-16.0 [facility] Comment on above: Performed By: #### 2 444918, 7774533, 9745384, 0371893, 6537818, 95636240 #### [facility] [address] [place], [place] [address] MCH (RBC) [Entitic mass] 32.5 pg Normal 27.0-34.0 [facility] Comment on above: Performed By: #### 2 520563, 0331010, 6401338, 3217218, 1038385, 63045953 #### [facility] [address] [place] [address] MCHC (RBC) [Mass/Vol] 33.8 g/dL Normal 31.4-36.0 [facility] Comment on above: Performed By: #### 2 441646, 6771489, 0956394, 4696447, 1921348, 58362645 #### [facility] [address] [place] [address] MCV (RBC) [Entitic vol] 96.1 fL Normal 80.0-100.0 [facility] Comment on above: Performed By: #### 2 407470, 5074764, 5507245, 4918401, 2786158, 42379860 #### [facility] [address] [place], [place] [address] Platelet mean volume (Bld) [Entitic vol] 8.9 fL Normal 6.4-10.8 [facility] Comment on above: Performed By: #### 2 633590, 7151974, 2846439, 4452363, 2690098, 29639559 #### [facility] [address] [place] [address] Platelets (Bld) [#/Vol] 186.0 E9/L Normal 150.0-500.0 [facility] Comment on above: Performed By: #### 2 186386, 7061299, 2992931, 8592267, 6678493, 26893008 #### [facility] [address] [place] [address] RBC (Bld) [#/Vol] 3.7 E12/L Low 4.3-5.9 [facility] Comment on above: Performed By: #### 2 135234, 2546137, 3284515, 7517432, 5538656, 99235111 #### [facility] [address] [place] [address] WBC corrected for nucl RBC Auto (Bld) [#/Vol] 3.9 E9/L Low 4.0-11.0 [facility] Comment on above: Performed By: #### 2 115407, 8745923, 0399346, 2041324, 0640475, 87947031 #### [facility] [address] [place] [address] Consent for Treatmenton Consent for Treatment [id number] 30 [id number] #1.00CD:127 Normal [facility] Hep Func Panelon 04-30-2023 Albumin [Mass/Vol] 3.7 g/dL Normal 3.3-5.0 [facility] Comment on above: Performed By: #### 2 616908, 6278849, 5981219, 5763154, 8138685, 83785953 #### [facility] [address] [place] [address] Albumin/Globulin (S) [Mass conc ratio] 1.1 Normal 1.1-2.2 [facility] Comment on above: Performed By: #### 2 960452, 6964939, 8371874, 2494423, 5668911, 59495112 #### [facility] [address] [place] [address] ALP [Catalytic activity/Vol] 78 Int._Unit/L Normal 21-98 [facility] Comment on above: Performed By: #### 2 131646, 7319863, 4034679, 7044166, 9911467, 29823991 #### [facility] [address] [place] [address] ALT No additional P-5'-P [Catalytic activity/Vol] 20 Int._Unit/L Normal 6-46 [facility] Comment on above: Performed By: #### 2 401917, 4596423, 6087013, 4610823, 8110348, 61222582 #### [facility] [address] [place] [address] AST [Catalytic activity/Vol] 23 Int._Unit/L Normal 5-43 [facility] Comment on above: Performed By: #### 2 725584, 2904484, 6813869, 5975747, 7037271, 38341640 #### [facility] [address] [place] [address] Bilirubin [Mass/Vol] 1.0 mg/dL Normal 0.0-1.1 [facility] Comment on above: Performed By: #### 2 458215, 5130041, 5358675, 1305467, 1658198, 69591376 #### [facility] [address] [address] Bilirubin.direct [Mass/Vol] 0.1 mg/dL Normal 0.1-0.4 [facility] Comment on above: Performed By: #### 2 625724, 6316488, 9756536, 3657440, 0290044, 38677133 #### [facility] [address] [place] [address] Bilirubin.indirect [Mass or moles/Vol] 0.9 mg/dL Normal 0.1-0.9 [facility] Comment on above: Performed By: #### 2 618087, 9988143, 6730857, 5695954, 9328822, 63364124 #### [facility] [address] [place] [address] Globulin (S) [Mass/Vol] 3.5 g/dL Normal 1.4-4.0 [facility] Comment on above: Performed By: #### 2 860906, 4029735, 2959181, 5498069, 9139431, 59055056 #### [facility] [address] [place] [address] Protein [Mass/Vol] 7.2 g/dL Normal 6.0-7.8 [facility] Comment on above: Performed By: #### 2 093686, 3541475, 2755554, 0038818, 2809611, 70067947 #### [facility] [address] [place] [address] Lipid Panelon 04-30-2023 Cholesterol [Mass/Vol] 162 mg/dL Normal 120-200 [facility] Comment on above: Performed By: #### 2 640249, 4182372, 6175068, 6679601, 8650296, 78717281 #### [facility] [address] [place] [address] Cholesterol in HDL [Mass/Vol] 62 mg/dL Invalid Interpretation Code [facility] Comment on above: Result Comment: HDL > or equal to 60 mg/dL: Low cardiovascular risk HDL < 40 mg/dL : High cardiovascular risk Performed By: #### 2 687407, 0326046, 7405233, 7739987, 8600926, 45223296 #### [facility] [address] [place] [address] Cholesterol in LDL [Mass/Vol] 96 mg/dL Normal <=129 [facility] Comment on above: Performed By: #### 2 732795, 7518455, 9741694, 6658610, 6750427, 70153992 #### [facility] [address] [place] [address] Cholesterol in VLDL [Mass/Vol] 8 mg/dL Normal 7-40 [facility] Comment on above: Performed By: #### 2 595948, 2403059, 3402518, 0436298, 0055334, 96769745 #### [facility] [address] [place] [address] Triglyceride [Mass/Vol] 40 mg/dL Normal <=149 [facility] Comment on above: Performed By: #### 2 061625, 7795748, 3766518, 5333373, 7895851, 54369469 #### [facility] [address] [place] [address] eGFRon 04-30-2023 GFR/1.73 sq M.predicted among non-blacks MDRD (S/P/Bld) [Vol rate/Area] 101 mL/min/1.73 m2 Normal >=59 [facility] Comment on above: Order Comment: Order added by Discern Expert. Result Comment: Brush Polisher felipa kidney disease could be indicated at eGFR's of less than 60 mL/min/1.73m2. Kidney failure is indicated at less than 15 mL/min/1.73m2. Performed By: #### 2 375288, 1008736, 5223084, 0252119, 9150410, 91235150 #### [facility] [address] [place] [address] Covid-19 PCR (CVDTB)on 05-22 SARS-CoV-2 (COVID-19) RNA AURA+probe Ql (Unsp spec) Not detected Normal NOT DETECTED [facility] Comment on above: Result Comment: This test is not yet approved or cleared by the [place] FDA. When there are no FDA-approved or cleared tests available, and other criteria are met, FDA can make tests available under an emergency access mechanism called an Emergency Use Authorization (EUA). The EUA for this test is supported by the Case Assistant of Health and Human Service's (HHS's) declaration [...] SARS-CoV-2. Performed By: #### C VDTBH #### [facility] [address] [address] [address] Tomas Chauhan CHEMISTRYOrdered By: SYSTEM SYSTEM [...] lity 08-16-2023 07:39-0400 Blood Pressure Location Piero STEINBERGJag.ag [place] 08-16-2023 07:39-0400 Body temperature 98.42 [degF] Piero Fengguo [place] 08-16-2023 07:39-0400 Diastolic blood pressure 82 mm[Hg] Piero MARYANLE [place] 08-16-2023 07:39-0400 Heart rate 76 /min Piero STEINBERGLE [place] 08-16-2023 07:39-0400 Respiratory rate 16 /min Piero ZhihuLE [place] 08-16-2023 07:39-0400 SaO2% (BldA) [Mass fraction] 99 % Piero Fengguo [place] 08-16-2023 07:39-0400 Systolic blood pressure 120 mm[Hg] Piero STEINBERGJag.ag [place] 05-18-2022 10:04-0400 Blood Pressure Location Piero KAPLE [facility] 05-18-2022 10:04-0400 Body temperature 97.88 [degF] Piero KAPLE [facility] 05-18-2022 10:04-0400 Diastolic blood pressure 78 mm[Hg] Piero KAPLE [facility] 05-18-2022 10:04-0400 Heart rate 84 /min Piero KAPLE [facility] 05-18-2022 10:04-0400 Respiratory rate 16 /min Piero STEINBERGLE [facility] 05-18-2022 10:04-0400 SaO2% (BldA) [Mass fraction] 98 % Piero KAPLE [facility] 05-18-2022 10:04-0400 Systolic blood pressure 122 mm[Hg] Piero STEINBERGLE [facility] Encounters Encounter Date Encounter Type Care Provider Facility Start: 08-28-2023 End: 08-29-2023 ambulatory Piero HENDRICKSON Facility:[facility] Start: 08-16-2023 End: 08-17-2023 ambulatory Piero HENDRICKSON Facility:[facility] Start: 08-16-2023 End: 08-16-2023 Patient encounter procedure Piero HENDRICKSON [facility] Start: 08-16-2023 End: 08-16-2023 Well adult monitoring check done Piero HENDRICKSON [facility] Start: 06-11-2023 End: 06-12-2023 ambulatory Jonh Ann Facility:[facility] Start: 04-30-2023 End: 05-01-2023 ambulatory Piero HENDRICKSON Facility:[facility] Start: 06-08-2022 End: 06-08-2022 Patient encounter procedure Jonh Ann [facility] Start: 06-08-2022 Encounter for preprocedural laboratory examination DR ALICE HERRERA [facility] Start: 06-05-2022 End: 06-06-[address] ALICE HERRERA Facility: Start: 06-05-2022 End: 06-06-2022 Encounter for preprocedural laboratory examination DR ALICE HERRERA Facility: Start: 05-19-2022 End: 05-19-2022 Lab Drop off Jonh Ann [facility] Start: 05-18-2022 End: 05-18-2022 Patient encounter procedure Piero HENDRICKSON [facility] Start: 05-18-2022 End: 05-18-2022 Preprocedural examination done Piero HENDRICKSON [facility] Start: 04-10-2022 End: 04-10-2022 Patient encounter procedure Piero HENDRICKSON [facility] Procedures Date Procedure Procedure Detail Performing Clinician Start: 06-09-2022 Insertion of hip prosthesis Piero HENDRICKSON Comment on above: Dr. Sandeep Samuel Bilateral tubal ligation Screbecca HENDRICKSON section Piero HENDRICKSON Colonoscopy Piero KAPLE laparoscopic Piero KAPLE venous blockage Piero KAPLE Immunizations Immunization Date Immunization Notes Care Provider Orlin lopez 09-03-2022 influenza virus vaccine, unspecified formulation Piero KAPLE [facility] 08-26-2021 influenza virus vaccine, unspecified formulation Piero KAPLE [facility] Comment on above: Result Comment: [facility] 08-22-2020 influenza virus vaccine, unspecified formulation Piero KAPLE [facility] 08-29-2019 influenza virus vaccine, unspecified formulation Piero KAPLE [facility] 08-28-2019 influenza virus vaccine, unspecified formulation Piero KAPLE [facility] 10-18-2017 influenza virus vaccine, unspecified formulation Piero KAPLE [facility] 09-15-2016 influenza virus vaccine, unspecified formulation Piero KAPLE [facility] 09-17-2015 influenza virus vaccine, unspecified formulation Piero KAPLE [facility] 09-11-2014 influenza virus vaccine, unspecified formulation Piero KAPLE [facility] 09-16-2013 influenza virus vaccine, unspecified formulation Piero KAPLE [facility] 11-04-2010 tetanus toxoid, reduced diphtheria toxoid, and acellular pertussis vaccine, adsorbed Piero KAPLE [facility] 03-06-2010 hepatitis A vaccine, adult dosage Piero STEINBERGLE [facility] 03-06-2010 hepatitis B vaccine, pediatric or pediatric/adolescent dosage Piero KAPLE [facility] 11-07-2009 hepatitis B vaccine, pediatric or pediatric/adolescent dosage Piero KAPLE [facility] 09-21-2009 influenza virus vaccine, H1N1, live Piero HENDRICKSON [facility] 09-05-2009 hepatitis A vaccine, adult dosage Piero HENDRICKSON [facility] 09-05-2009 hepatitis B vaccine, pediatric or pediatric/adolescent dosage Piero STEINBERGLE [facility] NEGATED: Highlighted row has not occurred!08-16-2023 influenza virus vaccine, unspecified formulation Piero HENDRICKSON [facility] NEGATED: Highlighted row has not occurred!08-16-2023 SARS-CoV-2 mRNA (tozinameran 5y-11y) vaccine Piero HENDRICKSON [facility] Payers Date Payer Category Payer Unknown [id number] 2.16.84 [id number] 1965 Unknown [id number] 2.16.8 [id number] 1966 Unknown [id number] 2.16.8 [id number] 1966 Unknown [id number] 2.16.8 [id number] 1966 Unknown [id number] 2.16.8 [id number] 1958 Private Health Insurance [id number] Social History Date Type Detail Facility Start: 03-07-2021 End: 08-16-2023 Tobacco smoking status Never smoked tobacco (finding) [facility] Tobacco smoking status Never [facility] Sex Assigned At Female [facility] Functional Status Date Assessment Result Facility 08-16-2023 Functional Status N/A [facility] 05-18-2022 Functional Status N/A [facility] Evaluation + Plan note 08-16-2023 Radiology Note Date & Type Note Facility 08-16-2023 Evaluation + Plan note Future Scheduled TestsCT Abdomen/Pelvis w/o Contrast 08/16/23 [facility] Hospital Discharge instructions 08-16-2023 Note Date & Type Note Facility 08-16-2023 Hospital Discharg e instructions Patient Education 08/16/2023 08:23:19 Muscle Strain, Kwci-eo-Ysrg Muscle Strain A muscle strain, or pulled [...] is not too tight. General instructions Take nsjn-ssy-dmjxyox and prescription medicines only as told by [...] provider. Document Revised: 01/26/2022 Document Reviewed: 01/26/2022 [employer], Patient Education 2022 [email or web address]. 08/16/2023 08:23:11 Cold Sore, Dkoa-ci-Ejmq Cold Sore A cold sore, also called [...] instructions at home: Medicines Take or apply txci-xly-yxkzgmg and prescription medicines only as told by [...] provider. Document Revised: 08/19/2022 Document Reviewed: 08/19/2022 [employer], Patient Education 2022 [employer] 08/16/2023 08:10:18 Flank Pain, Adult, Nqyw-az-Qaud Flank Pain, Adult Flank pain is pain [...] Rest as told by your doctor. Take kwoo-zgi-iowzdwv and prescription medicines only as told by [...] provider. Document Revised: 01/19/2022 Document Reviewed: 01/19/2022 [employer], Patient Education 2022 [email or web address]. Follow Up Care 04/22/2023 15:20:47 With:EMEKA JAY FAAFP, FAUSTINA Baeza, PED Address: [address] [place] [address] [place] [address]- When:Within 1 Year(s) [facility] Hospital Discharge instructions 05-18-2022 [...] to take more than one medicine. Take cqnh-fph-opokryx and prescription medicines only as told by your health care provider. Where to find support Your health care provider can help you prevent hypertension and help you keep your blood pressure at a healthy level. Your local hospital or your community may also provide support services and prevention programs. The [employer] offers an online support network at: http://supportnetwork.heart.org /osxb-ffzyg-ksifovpa Where to find more information Learn more about hypertension from: National Heart, Lung, and Blood [place]: www.nhlbi.nih.gov/health/health -topics/topics/hbp Centers for Disease Control and Prevention: www.cdc.gov/bloodpressure [employer]: http://familydoctor.org/familyd octor/en/diseases-conditions/hi zv-tlvxw-mkzcrkus.printerview.robert zayas.html Learn more about the DASH diet from: National Heart, Lung, and Blood [place]: www.nhlbi.nih.gov/health/health -topics/topics/dash Contact a health care provider [...] 11/22/2016 Document Revised: 03/01/2020 Document Reviewed: 07/19/2017 [employer], Patient Education 2020 [email or web address]. Follow Up Care 05/05/2022 13:24:35 With:Piero HENDRICKSON DO, FAAFP, FAUSTINA, PED Address: [address] [place] [address]- When:Within 1 Year(s) [facility] Evaluation + Plan note 05-09-2022 Note Date & Type Note Facility 05-09-2022 Evaluation + Plan note Diagnostic Tests PendingPAP 821032 IG Apt HPV,rfx 16/18,45 05/19/22 [facility] Evaluation + Plan note Note Date & Type Note Facility Evaluation + Plan note No data available for this section [facility] Hospital Discharge instructions Note Date & Type Note Facility Hospital Discharge instructions No data available for this section [facility] Progress note Note Date & Type Note Facility Progress note No data available for this section [facility] Summary Purpose Family History No Family History Records FoundNo Family History Records Found Advance Directives No Advanced Directives Records FoundNo Advanced Directives Records Found Additional Source Comments Care Team (unrecognized sect ion and content) Personnel Name: Piero HENDRICKSON DO, FAAFP Address: [place] [facility] [address] Personnel Name: Piero HENDRICKSON DO, FAAFP Address: [address] [facility] A [address] Personnel Name: Piero HENDRICKSON DO, FAAFP Address: [place] [facility] [address] Personnel Name: Piero HENDRICKSON DO, FAAFP Address: [address] [facility] A [address] Personnel Name: Piero HENDRICKSON DO, FAAFP Address: Address: [place] [facility] A [address] INFORMATION SOURCE (unrecogn ized section and content) DATE CREATED AUTHOR 06/11/2022 [facility] DATE CREATED AUTHOR 'S TERRY BOWLING 08/31/2023 [facility] FOR RECORDS PERTAINING TO PATIENTS WHO ARE [...] BE BASED ON THE PRIMARY CLINICAL RECORDS. [facility] [employer] provides no warranty or guarantee of the accuracy or completeness of information in this document.
== END 2024-05-04 07:56 | disposition home or self-care (01) ==
LOC: VC 07:56
PROVIDERS: PCP Radiology Diagnostic Radiology; Visit Provider Radiology Diagnostic Radiology
DX: I83.813 Varicose veins of bilateral lower extremities with pain (principal)
CPT/HCPCS: 36471